=== PATIENT | female | born 1940 | race Caucasian/White ===

== ENCOUNTER 2016-08-18 07:57 | Inpatient (IN) | payer MEDICARE, BC ==
[2016-08-18] MEDS ORDERED: Docusate Sodium 100 MG Cap PO PRN (12:43)
[2016-08-18] MEDS ORDERED: valACYclovir 1,000 MG Tab PO PRN (13:55)
[2016-08-18] MEDS: Acetaminophen 500 MG Tab PO SCH ×2 (15:02→20:39)
--- NOTE | 2016-08-18 18:12 | PCM.HP ---
H&P History of Present Illness - General Date of Service: 08/18/16 Admit Problem/Dx: Admission Diagnosis/Problem Admission Diagnosis/Problem Total replacement of hip Source of Information: Patient, Family History Limitations: Reports: No limitations - History of Present Illness Initial Comments - Free Text/Narative: This is a 75-year-old female patient that had right total hip arthroplasty 4 days ago and [place] by Dr. Salinas. She's doing well and here for swing bed at rehabilitation. She has no concerns today. Her [id number] states that she does have some dementia and Alzheimer's. DENIES ANY PAIN WHEN ASKED AT PRESENT TIME. Pain Score (Numeric/FACES): 0 - Related Data Allergies/Adverse Reactions: Allergies Allergy/AdvReac Type Severity Reaction Status Date / Time No Known Allergies Allergy Verified 08/18/16 12:42 Home Medications: Home Meds Bimatoprost [LUMIGAN 0.01% Ophth Soln] 1 drop EYEBOTH BEDTIME 11/04/14 [History] Lovastatin [Lovastatin] 40 mg PO BEDTIME 11/04/14 [History] Sertraline HCl [Sertraline HCl] 25 mg PO BEDTIME 11/04/14 [History] Acetaminophen [Tylenol Extra Strength] 1,000 mg PO TID 08/18/16 [History] Acetaminophen/Diphenhydramine [Tylenol Pm Ex-Strength Caplet] 2 each PO BEDTIME 08/18/16 [History] Allopurinol [Zyloprim] 150 mg PO BEDTIME 08/18/16 [History] Aspirin [Ecotrin] 325 mg PO BID 08/18/16 [History] Donepezil HCl 10 mg PO BEDTIME 08/18/16 [History] Losartan [Cozaar] 100 mg PO BEDTIME 08/18/16 [History] Memantine HCl [Namenda] 5 mg PO BEDTIME 08/18/16 [History] Timolol Maleate [Timoptic 0.5% Opth Soln] 1 drop EYELF BEDTIME 08/18/16 [History ] amLODIPine [Norvasc] 5 mg PO BEDTIME 08/18/16 [History] traMADol [Ultram] 50 - 100 mg PO Q4H PRN 08/18/16 [History] valACYclovir [Valtrex] 2,000 mg PO BID PRN 08/18/16 [History] Past Medical History HEENT History: Reports: Cataract, Glaucoma, Impaired vision Cardiovascular History: Reports: High cholesterol, Hypertension, SOB on exertion Gastrointestinal History: Reports: GERD, Other (see below) Other Gastrointestinal History: heartburn with Other Genitourinary History: KIDNEY DYSFUNCTION D/T [employer] History: Reports: Musculoskeletal History: Reports: Back pain, chronic Neurological History: Reports: Alzheimers disease Oncologic (Cancer) History: Reports: Other (see below) Other Oncologic History: skin cancer - Infectious Disease History Infectious Disease History: Reports: Chicken pox, Measles, Mumps - Past Surgical History HEENT Surgical History: Reports: Cataract surgery, Oral surgery Cardiovascular Surgical History: Reports: None GI Surgical History: Reports: Appendectomy, Colonoscopy Female Surgical History: Reports: Hysterectomy, Oophorectomy Neurological Surgical History: Reports: None Musculoskeletal Surgical History: Reports: Hip replacement, Other (see below) Other Musculoskeletal Surgeries/Procedures:: back surgery years ago, right hip replacement Social & Family History - Family History Family Medical History: Noncontributory - Tobacco Use Smoking Status *Q: Never Smoker Second Hand Smoke Exposure: No - Caffeine Use Caffeine Use: Reports: None - Recreational Drug Use Recreational Drug Use: No H&P Review of Systems - Review of Systems: Review Of Systems: See Below General: Reports: no symptoms HEENT: Reports: no symptoms Pulmonary: Reports: No Symptoms Cardiovascular: Reports: no symptoms Gastrointestinal: Reports: No symptoms Genitourinary: Reports: no symptoms Musculoskeletal: Reports: joint pain Psychiatric: Reports: no symptoms Neurological: Reports: No Symptoms Hematologic/Lymphatic: Reports: no symptoms Immunologic: Reports: no symptoms Exam - Exam Exam: See Below - Vital Signs Vital Signs: Last Vital Signs Temp 98.0 F 08/18/16 11:45 Pulse 66 08/18/16 11:45 Resp 18 08/18/16 11:45 BP 123/38 L 08/18/16 11:45 Pulse Ox 96 08/18/16 11:45 Weight: 165 lb 8 oz - Exam General: alert, oriented, cooperative HEENT: PERRLA, Hearing intact, Posterior pharynx clear, Pupils equal, Pupils reactive, TMs clear Neck: supple, trachea midline. No: carotid bruit Lungs: Clear to auscultation, Normal respiratory effort. No: Rales, Rhonchi, Rub Cardiovascular: regular rate, regular rhythm, normal S1, normal S2. No: systolic murmur, diastolic murmur Abdomen: normal bowel sounds, soft. No: organomegaly, guarding, rigidity, rebound, tenderness Back Exam: normal inspection Skin: warm, dry, intact Neuro Extensive - Mental Status: alert, oriented x3, normal mood/affect, normal cognition *Q Meaningful Use (ADM) - VTE *Q VTE Criteria *Q: - Stroke *Q Stroke Criteria *Q: - AMI *Q AMI Criteria *Q: - Problem List (1) S/P total hip arthroplasty SNOMED Code(s): 850971867978, 836384282998 ICD Code: Z96.649 - PRESENCE OF UNSPECIFIED ARTIFICIAL HIP JOINT Status: Acute Current Visit: Yes Problem List Initiated/Reviewed/Updated: Yes Orders Last 24hrs: Active Orders 24 hr Category Date Time Status Admission Status [Patient Status] [ADT] Routine ADT 08/18/16 08:22 Active Patient Status [ADT] Routine ADT 08/18/16 12:43 Active Communication Order [RC] ASDIRECTED Care 08/18/16 17:04 Active May Shower [RC] ASDIRECTED Care 08/18/16 12:43 Active Oxygen Therapy [RC] PRN Care 08/18/16 12:43 Active Up With Assistance [RC] ASDIRECTED Care 08/18/16 12:43 Active Vital Signs [RC] PER UNIT ROUTINE Care 08/18/16 12:43 Active OT Evaluation and Treatment [CONS] Routine Cons 08/18/16 12:43 Active PT Evaluation and Treatment [CONS] Routine Cons 08/18/16 12:43 Active Regular Diet [DIET] Diet 08/18/16 Lunch Active Acetaminophen [Tylenol Extra Strength] Med 08/18/16 14:00 Active 1,000 mg PO TID Acetaminophen/Diphenhydramine [Tylenol PM Extra Med 08/18/16 21:00 Active Strength] 2 tab PO BEDTIME Allopurinol [Zyloprim] Med 08/18/16 21:00 Active 150 mg PO BEDTIME Aspirin [Ecotrin] Med 08/18/16 21:00 Active 325 mg PO BID Docusate Sodium [Colace] Med 08/18/16 12:43 Active 100 mg PO BID PRN Donepezil [Aricept] Med 08/18/16 21:00 Active 10 mg PO BEDTIME Latanoprost [Xalatan 0.005% Ophth Soln] Med 08/18/16 21:00 Active 0 ml EYEBOTH BEDTIME Losartan [Cozaar] Med 08/18/16 21:00 Active 100 mg PO BEDTIME Lovastatin [Mevacor] Med 08/18/16 21:00 Active 40 mg PO BEDTIME Memantine [Namenda] Med 08/18/16 21:00 Active 5 mg PO BEDTIME Sertraline [Zoloft] Med 08/18/16 21:00 Active 25 mg PO BEDTIME Timolol Maleate [Timoptic 0.5% Ophth Soln] Med 08/18/16 21:00 Active 0 ml EYELF BEDTIME amLODIPine [Norvasc] Med 08/18/16 21:00 Active 5 mg PO BEDTIME traMADol [Ultram] Med 08/18/16 13:55 Active 50 mg PO Q4H PRN valACYclovir [Valtrex] Med 08/18/16 13:55 Active 2,000 mg PO BID PRN Sequential Compression Device [OM.PC] Per Unit Routine Oth 08/18/16 12:44 Ordered Resuscitation Status Routine Resus Stat 08/18/16 12:43 Ordered Medication Orders Acetaminophen (Tylenol Extra Strength) 1,000 mg PO TID [facility] Last Admin: 08/18/16 15:02 Dose: 1,000 mg Acetaminophen/Diphenhydramine HCl (Tylenol Pm Extra Strength) 2 tab PO BEDTIME [facility] Allopurinol (Zyloprim) 150 mg PO BEDTIME [facility] Amlodipine Besylate (Norvasc) 5 mg PO BEDTIME [facility] Aspirin (Ecotrin) 325 mg PO BID [facility] Docusate Sodium (Colace) 100 mg PO BID PRN PRN Reason: Constipation Donepezil HCl (Aricept) 10 mg PO BEDTIME [facility] Latanoprost (Xalatan 0.005% Ophth Soln) 0 ml EYEBOTH BEDTIME [facility] Losartan Potassium (Cozaar) 100 mg PO BEDTIME [facility] Lovastatin (Mevacor) 40 mg PO BEDTIME [facility] Memantine (Namenda) 5 mg PO BEDTIME [facility] Sertraline HCl (Zoloft) 25 mg PO BEDTIME [facility] Timolol Maleate (Timoptic 0.5% Ophth Soln) 0 ml EYELF BEDTIME [facility] Tramadol HCl (Ultram) 50 mg PO Q4H PRN PRN Reason: MODERATE-SEVERE PAIN Valacyclovir HCl (Valtrex) 2,000 mg PO BID PRN PRN Reason: COLD SORES Assessment/Plan Comment:: 1. Admit to suite at per PT/OT and rehabilitation. 2. Discussed living rao and she wants to be a full code. 3. Continue current medications. 4. Regular diet.
[2016-08-18] MEDS: Donepezil 10 MG Tab PO SCH (20:34)
[2016-08-18] MEDS: Losartan 100 MG Tab PO SCH (20:34)
[2016-08-18] MEDS: Aspirin 325 MG Tab.EC PO SCH (20:36)
[2016-08-18] MEDS: Sertraline 25 MG Tab PO SCH (20:37)
[2016-08-18] MEDS: Memantine 10 MG Tab PO SCH (20:37)
[2016-08-18] MEDS: Timolol Maleate 0.5% Ophth Soln 5 ML Bottle EYELF SCH (20:38)
[2016-08-18] MEDS: amLODIPine 5 MG Tab PO SCH (20:38)
[2016-08-18] MEDS: Acetaminophen/Diphenhydramine 500-25 MG Tab PO SCH (20:39)
[2016-08-18] MEDS: Latanoprost 0.005% Ophth Soln 2.5 ML Bottle EYEBOTH SCH (20:40)
[2016-08-18] MEDS: Allopurinol 300 MG Tab PO SCH (20:40)
[2016-08-19] MEDS: traMADol 50 MG Tab PO PRN ×2 (04:59→17:11)
[2016-08-19] MEDS: Aspirin 325 MG Tab.EC PO SCH ×2 (08:44→20:02)
[2016-08-19] MEDS ORDERED: Acetaminophen 500 MG Tab PO SCH (09:00)
[2016-08-19] MEDS: Acetaminophen 500 MG Tab PO SCH (13:45)
[2016-08-19] MEDS: Losartan 100 MG Tab PO SCH (20:00)
[2016-08-19] MEDS: Donepezil 10 MG Tab PO SCH (20:00)
[2016-08-19] MEDS: Memantine 10 MG Tab PO SCH (20:02)
[2016-08-19] MEDS: amLODIPine 5 MG Tab PO SCH (20:03)
[2016-08-19] MEDS: Timolol Maleate 0.5% Ophth Soln 5 ML Bottle EYELF SCH (20:03)
[2016-08-19] MEDS: Latanoprost 0.005% Ophth Soln 2.5 ML Bottle EYEBOTH SCH (20:04)
[2016-08-19] MEDS: Allopurinol 300 MG Tab PO SCH (20:04)
[2016-08-19] MEDS: Sertraline 25 MG Tab PO SCH (20:04)
[2016-08-19] MEDS: Acetaminophen/Diphenhydramine 500-25 MG Tab PO SCH (20:06)
[2016-08-20] MEDS: Acetaminophen 500 MG Tab PO SCH ×2 (08:31→14:28)
[2016-08-20] MEDS: Aspirin 325 MG Tab.EC PO SCH ×2 (08:31→20:19)
[2016-08-20] MEDS: Donepezil 10 MG Tab PO SCH (20:16)
[2016-08-20] MEDS: Losartan 100 MG Tab PO SCH (20:16)
[2016-08-20] MEDS: Timolol Maleate 0.5% Ophth Soln 5 ML Bottle EYELF SCH (20:20)
[2016-08-20] MEDS: amLODIPine 5 MG Tab PO SCH (20:20)
[2016-08-20] MEDS: Memantine 10 MG Tab PO SCH (20:20)
[2016-08-20] MEDS: Sertraline 25 MG Tab PO SCH (20:21)
[2016-08-20] MEDS: Allopurinol 300 MG Tab PO SCH (20:21)
[2016-08-20] MEDS: Acetaminophen/Diphenhydramine 500-25 MG Tab PO SCH (20:21)
[2016-08-20] MEDS: Latanoprost 0.005% Ophth Soln 2.5 ML Bottle EYEBOTH SCH (20:21)
[2016-08-21] MEDS: Acetaminophen 500 MG Tab PO SCH ×2 (08:02→14:04)
[2016-08-21] MEDS: Aspirin 325 MG Tab.EC PO SCH ×2 (08:02→20:57)
[2016-08-21] MEDS: Donepezil 10 MG Tab PO SCH (20:56)
[2016-08-21] MEDS: Losartan 100 MG Tab PO SCH (20:56)
[2016-08-21] MEDS: Memantine 10 MG Tab PO SCH (20:57)
[2016-08-21] MEDS: Latanoprost 0.005% Ophth Soln 2.5 ML Bottle EYEBOTH SCH (20:58)
[2016-08-21] MEDS: Acetaminophen/Diphenhydramine 500-25 MG Tab PO SCH (20:58)
[2016-08-21] MEDS: Allopurinol 300 MG Tab PO SCH (20:58)
[2016-08-21] MEDS: Timolol Maleate 0.5% Ophth Soln 5 ML Bottle EYELF SCH (20:58)
[2016-08-21] MEDS: amLODIPine 5 MG Tab PO SCH (20:58)
[2016-08-21] MEDS: Sertraline 25 MG Tab PO SCH (20:58)
[2016-08-22] MEDS: Acetaminophen 500 MG Tab PO SCH ×3 (08:11→13:29)
[2016-08-22] MEDS: Aspirin 325 MG Tab.EC PO SCH ×2 (08:11→21:07)
[2016-08-22] MEDS: Timolol Maleate 0.5% Ophth Soln 5 ML Bottle EYELF SCH (20:51)
[2016-08-22] MEDS: Latanoprost 0.005% Ophth Soln 2.5 ML Bottle EYEBOTH SCH (20:57)
[2016-08-22] MEDS: Acetaminophen/Diphenhydramine 500-25 MG Tab PO SCH (21:06)
[2016-08-22] MEDS: Donepezil 10 MG Tab PO SCH (21:06)
[2016-08-22] MEDS: amLODIPine 5 MG Tab PO SCH (21:07)
[2016-08-22] MEDS: Allopurinol 300 MG Tab PO SCH (21:11)
[2016-08-22] MEDS: Memantine 10 MG Tab PO SCH (21:12)
[2016-08-22] MEDS: Sertraline 25 MG Tab PO SCH (21:31)
[2016-08-22] MEDS: Losartan 100 MG Tab PO SCH (21:31)
[2016-08-23] MEDS: Aspirin 325 MG Tab.EC PO SCH ×2 (08:19→20:23)
[2016-08-23] MEDS: Acetaminophen 500 MG Tab PO SCH ×2 (08:19→14:32)
[2016-08-23] MEDS: Latanoprost 0.005% Ophth Soln 2.5 ML Bottle EYEBOTH SCH (20:21)
[2016-08-23] MEDS: Losartan 100 MG Tab PO SCH (20:22)
[2016-08-23] MEDS: Donepezil 10 MG Tab PO SCH (20:22)
[2016-08-23] MEDS: Memantine 10 MG Tab PO SCH (20:24)
[2016-08-23] MEDS: amLODIPine 5 MG Tab PO SCH (20:24)
[2016-08-23] MEDS: Timolol Maleate 0.5% Ophth Soln 5 ML Bottle EYELF SCH (20:25)
[2016-08-23] MEDS: Sertraline 25 MG Tab PO SCH (20:25)
[2016-08-23] MEDS: Acetaminophen/Diphenhydramine 500-25 MG Tab PO SCH (20:25)
[2016-08-23] MEDS: Allopurinol 300 MG Tab PO SCH (20:26)
[2016-08-24] MEDS: Acetaminophen 500 MG Tab PO SCH ×2 (08:44→15:21)
[2016-08-24] MEDS: Aspirin 325 MG Tab.EC PO SCH ×2 (08:44→21:21)
[2016-08-24] MEDS: traMADol 50 MG Tab PO PRN (19:42)
[2016-08-24] MEDS: Losartan 100 MG Tab PO SCH (21:20)
[2016-08-24] MEDS: Donepezil 10 MG Tab PO SCH (21:20)
[2016-08-24] MEDS: Memantine 10 MG Tab PO SCH (21:21)
[2016-08-24] MEDS: Timolol Maleate 0.5% Ophth Soln 5 ML Bottle EYELF SCH (21:22)
[2016-08-24] MEDS: Acetaminophen/Diphenhydramine 500-25 MG Tab PO SCH (21:22)
[2016-08-24] MEDS: amLODIPine 5 MG Tab PO SCH (21:22)
[2016-08-24] MEDS: Latanoprost 0.005% Ophth Soln 2.5 ML Bottle EYEBOTH SCH (21:25)
[2016-08-25] MEDS: Aspirin 325 MG Tab.EC PO SCH (08:00)
[2016-08-25] MEDS: Acetaminophen 500 MG Tab PO SCH ×2 (08:00→13:02)
[2016-08-25 08:58] VITALS: BP 127/58
--- NOTE | 2016-08-25 13:24 | PCM.DCSUM1 ---
Discharge Summary - Discharge Data Discharge Date: 08/25/16 Discharge Disposition: Home, W Home Health Agency Condition: Good - Discharge Diagnosis/Problem(s) (1) S/P total hip arthroplasty SNOMED Code(s): 421602057735, [id number] ICD Code: Z96.649 - PRESENCE OF UNSPECIFIED ARTIFICIAL HIP JOINT Status: Acute Current Visit: Yes Qualifiers: Laterality: right Qualified Code(s): Z96.641 - Presence of right artificial hip joint - Patient Summary/Data Consults: Consultations 08/18/16 12:43 OT Evaluation and Treatment [CONS] Routine Please Evaluate and Treat. OT Reason for Consult: Strengthening This query below is only for informational purposes and is not editable. Admission Diagnosis/Problem: Total replacement of hip PT Evaluation and Treatment [CONS] Routine Please Evaluate and Treat. PT Reason for Consult: Ambulation This query below is only for informational purposes and is not editable. Admission Diagnosis/Problem: Total replacement of hip Hospital Course: Mrs. Ramos is a pleasant 75 year female admitted to our swingbed for reconditioning, PT/OT, med management and wound cares after Right Total Hip Arthoplasty in [place]. she has done quite well since being here without incident. surgical site has remained healthy, she continues with high dose ASA per ortho, teds for edema as expected and will be discharged with continued therapies and outpt follow up with orthopedics as already scheduled. no medication changes otherwise and post op labs good. using walker and full weight bearing. she tells me today she is ready. her daughter is present and agrees. pt has no ayers, f/c, nausea, back or abdominal pain. doses get some thigh cramping with ambulation this last time. no calf pain. wearing teds. no dysuria or hematuria. tolerating diet adn therapies. good output. no episodes with underlying dementia while in house. she denies concerns for going home. exam today. vitals within normal ranges. labs reviewed. alert, ox3, nad, sitting with wheel chair, unlabored breathing head and neck normal OP clear and moist. lungs clear heart rrr/no mur abd soft and nt. good bowel sounds. back non tender. right hip op sight clean, dry, healthy and no dehisence or induration. no tenderness to palp. no quad spasming. normal sensation and perfusion. ext: right calf/lower leg increased in circumferense today with compared to the left. no tenderness. no warmth. negative holmans. normal 2+DP and PT pulses bilat. left leg with edema mild and non tender. will rule out dvt with duplex prior to discharge. if positive, will adjust discharge planning. - Patient Instructions Diet: Heart Healthy Diet, Low Sodium Activity: Full Weight Bearing Driving: Do Not Drive Showering/Bathing: May Shower Wound/Incision Care: Keep Operative Site/Wound Site Clean and Dry Notify Provider of: Fever, Increased Pain, Swelling and Redness, Nausea and/or Vomiting - Discharge Plan Home Medications: Home Meds Bimatoprost [LUMIGAN 0.01% Ophth Soln] 1 drop EYEBOTH BEDTIME 11/04/14 [History] Lovastatin 40 mg PO BEDTIME 11/04/14 [History] Sertraline HCl 25 mg PO BEDTIME 11/04/14 [History] Acetaminophen [Tylenol Extra Strength] 1,000 mg PO TID 08/18/16 [History] Acetaminophen/Diphenhydramine [Tylenol Pm Ex-Strength Caplet] 2 each PO BEDTIME 08/18/16 [History] Allopurinol [Zyloprim] 150 mg PO BEDTIME 08/18/16 [History] Donepezil HCl 10 mg PO BEDTIME 08/18/16 [History] Losartan [Cozaar] 100 mg PO BEDTIME 08/18/16 [History] Memantine HCl [Namenda] 5 mg PO BEDTIME 08/18/16 [History] Timolol Maleate [Timoptic 0.5% Ophth Soln] 1 drop EYELF BEDTIME 08/18/16 [ History] amLODIPine [Norvasc] 5 mg PO BEDTIME 08/18/16 [History] traMADol [Ultram] 50 - 100 mg PO Q4H PRN 08/18/16 [History] valACYclovir [Valtrex] 2,000 mg PO BID PRN 08/18/16 [History] Aspirin [Ecotrin] 325 mg PO BID 20 Days 08/25/16 [Rx] Patient Handouts: Total Hip Replacement, [id number], Fall Prevention in Hospitals, Adult, Venous Thromboembolism Prevention Referrals: Solo Gtz MD [Physician] - (or pcp of choice for hosp follow up after ortho appt. ) - Discharge Summary/Plan Comment DC Time >30 min.: Yes - Patient Data Vitals - Most Recent: Last Vital Signs Temp 97.7 F 08/25/16 08:58 Pulse 66 08/25/16 08:58 Resp 18 08/25/16 08:58 BP 127/58 L 08/25/16 08:58 Pulse Ox 98 08/25/16 08:58 Weight - Most Recent: 75.07 kg Med Orders - Current: Current Medications Acetaminophen (Tylenol Extra Strength) 1,000 mg PO BID@0900,1400 [facility] Last Admin: 08/25/16 13:02 Dose: 1,000 mg Acetaminophen/Diphenhydramine HCl (Tylenol Pm Extra Strength) 2 tab PO BEDTIME [facility] Last Admin: 08/24/16 21:22 Dose: 2 tab Allopurinol (Zyloprim) 150 mg PO BEDTIME [facility] Last Admin: 08/23/16 20:26 Dose: 150 mg Amlodipine Besylate (Norvasc) 5 mg PO BEDTIME [facility] Last Admin: 08/24/16 21:22 Dose: 5 mg Aspirin (Ecotrin) 325 mg PO BID [facility] Last Admin: 08/25/16 08:00 Dose: 325 mg Docusate Sodium (Colace) 100 mg PO BID PRN PRN Reason: Constipation Donepezil HCl (Aricept) 10 mg PO BEDTIME [facility] Last Admin: 08/24/16 21:20 Dose: 10 mg Latanoprost (Xalatan 0.005% Ophth Soln) 0 ml EYEBOTH BEDTIME [facility] Last Admin: 08/24/16 21:25 Dose: 1 drop Losartan Potassium (Cozaar) 100 mg PO BEDTIME [facility] Last Admin: 08/24/16 21:20 Dose: 100 mg Lovastatin (Mevacor) 40 mg PO BEDTIME [facility] Last Admin: 08/24/16 21:21 Dose: 40 mg Memantine (Namenda) 5 mg PO BEDTIME [facility] Last Admin: 08/24/16 21:21 Dose: 5 mg Sertraline HCl (Zoloft) 25 mg PO BEDTIME [facility] Last Admin: 08/23/16 20:25 Dose: 25 mg Timolol Maleate (Timoptic 0.5% Ophth Soln) 0 ml EYELF BEDTIME [facility] Last Admin: 08/24/16 21:22 Dose: 1 drop Tramadol HCl (Ultram) 50 mg PO Q4H PRN PRN Reason: MODERATE-SEVERE PAIN Last Admin: 08/24/16 19:42 Dose: 50 mg Valacyclovir HCl (Valtrex) 2,000 mg PO BID PRN PRN Reason: COLD SORES Discontinued Medications Acetaminophen (Tylenol Extra Strength) 1,000 mg PO TID [facility] Last Admin: 08/18/16 20:39 Dose: 1,000 mg Acetaminophen (Tylenol Extra Strength) 1,000 mg PO TID@0900,1300,1700 [facility] Last Admin: 08/19/16 08:45 Dose: 1,000 mg *Q Meaningful Use (DIS) - VTE *Q VTE Criteria *Q: - Stroke *Q Stroke Criteria *Q: - AMI *Q AMI Criteria *Q:
--- NOTE | 2016-08-25 14:11 | US ---
INDICATION: Asymmetrical pain and swelling post op right OLIVIER. Question DVT. DUPLEX ULTRASOUND, RIGHT LOWER EXTREMITY VEINS: Utilizing 2-D real time, duplex Doppler spectral analysis, and color flow imaging, examination of the right lower extremity veins revealed no evidence of deep venous thrombosis or obstruction. Compression views showed no abnormal lack of compression to suggest thrombosis. No evidence of incompetence of the valves was identified. Peroneal veins were not visualized. Interstitial edema is noted in the calf. IMPRESSION: 1. Duplex ultrasound, right lower extremity veins, shows no evidence of deep venous thrombosis. 2. No evidence of valvular incompetence. Report was called to Dr. Booker at 1358 hours, 08/25/2016. [facility]
== END 2016-08-25 15:15 | disposition home health service (06) | DRG 561 ==
LOC: FB.MS 11:39
PROVIDERS: ADMIT Family Medicine; ATTEND Family Medicine
DX: Z47.1 Aftercare following joint replacement surgery (principal); Z96.641 Presence of right artificial hip joint; K21.9 Gastro-esophageal reflux disease without esophagitis; E78.5 Hyperlipidemia, unspecified; H40.9 Unspecified glaucoma; G30.9 Alzheimer's disease, unspecified; F02.80 Dementia in other diseases classified elsewhere, unspecified severity, without behavioral disturbance, psychotic disturbance, mood disturbance, and anxiety
CPT/HCPCS: 36415; 80048; 85027; 93971-RT; 97110-GP; 97116-GP; 97162-GP; 97166-GO; 97530-GO; 97530-GO-KX; 97530-GP; 97535-GO; A9270-GY

== ENCOUNTER 2017-08-10 08:17 | Inpatient (IN) | payer MEDICARE, BC ==
--- NOTE | 2017-08-10 08:56 | EDM.PDOC ---
ED HPI GENERAL MEDICAL PROBLEM - General Stated Complaint: WEAKNESS Time Seen by Provider: 08/10/17 08:17 Source of Information: Reports: Patient, Family History Limitations: Reports: Respiratory Distress - History of Present Illness INITIAL COMMENTS - FREE TEXT/NARRATIVE: 76 y.o.w f with a h/O early Alzheimers, came with her daughters to the ed because she could not breath. Pt herself is not able to give a HPI. No N/V/D. Pt has a h/o of "kidney issues". Denied trauma, denies Dysuria. no C/P, no Dizziness of lightheadedness. No other acute medical issues. BP 126/64 Pulse 56 pulse ox 97% RR 18 Temp 36.9 Onset Date: 08/10/17 Onset Time: 07:00 Duration: Hour(s):, Constant, Intermittent Location: Reports: Generalized Quality: Reports: Ache, Burning Severity: Mild Improves with: Reports: Rest Worsens with: Reports: Movement Context: Reports: Other Associated Symptoms: Reports: No Other Symptoms DENIES ANY PAIN WHEN ASKED AT PRESENT TIME. Pain Score (Numeric/FACES): 0 - Related Data Allergies Allergy/AdvReac Type Severity Reaction Status Date / Time No Known Allergies Allergy Verified 08/10/17 08:31 Home Meds: Home Meds Bimatoprost [LUMIGAN 0.01% Ophth Soln] 1 drop EYEBOTH BEDTIME 11/04/14 [History] Lovastatin 40 mg PO BEDTIME 11/04/14 [History] Sertraline HCl 25 mg PO BEDTIME 11/04/14 [History] Acetaminophen [Tylenol Extra Strength] 1,000 mg PO DAILY 08/18/16 [History] Acetaminophen/Diphenhydramine [Tylenol Pm Ex-Strength Caplet] 2 each PO BEDTIME 08/18/16 [History] Allopurinol [Zyloprim] 150 mg PO BEDTIME 08/18/16 [History] Donepezil HCl 10 mg PO BEDTIME 08/18/16 [History] Losartan [Cozaar] 100 mg PO BEDTIME 08/18/16 [History] Memantine HCl [Namenda] 10 mg PO BEDTIME 08/18/16 [History] Timolol Maleate [Timoptic 0.5% Ophth Soln] 1 drop EYEBOTH DAILY 08/18/16 [ History] amLODIPine [Norvasc] 5 mg PO BEDTIME 08/18/16 [History] Aspirin [Ecotrin] 325 mg PO DAILY 08/10/17 [History] Cholecalciferol (Vitamin D3) [Vitamin D3] 2,000 unit PO BEDTIME 08/10/17 [ History] Past Medical History HEENT History: Reports: Cataract, Glaucoma, Impaired Vision Cardiovascular History: Reports: High Cholesterol, Hypertension, SOB on Exertion Gastrointestinal History: Reports: GERD, Other (See Below) Other Gastrointestinal History: heartburn with Other Genitourinary History: KIDNEY DYSFUNCTION D/T TOXIEMIA 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: Musculoskeletal History: Reports: Back Pain, Chronic Neurological History: Reports: Alzheimers Disease Oncologic (Cancer) History: Reports: Other (See Below) Other Oncologic History: skin cancer - Infectious Disease History Infectious Disease History: Reports: Chicken Pox, Measles, Mumps - Past Surgical History HEENT Surgical History: Reports: Cataract Surgery, Oral Surgery Musculoskeletal Surgical History: Reports: Hip Replacement, Other (See Below) Social & Family History - Family History Family Medical History: Noncontributory - Tobacco Use Smoking Status *Q: Never Smoker Second Hand Smoke Exposure: No - Caffeine Use Caffeine Use: Reports: None - Recreational Drug Use Recreational Drug Use: No ED ROS GENERAL - Review of Systems Review Of Systems: Unable To Obtain (early alzheimers) ED EXAM, GENERAL - Physical Exam Exam: See Below Exam Limited By: Altered Mental Status General Appearance: Alert, WD/WN, Mild Distress Eye Exam: Bilateral Eye: EOMI, Normal Inspection Ears: Normal External Exam, Normal Canal Ear Exam: Bilateral Ear: Auricle Normal Nose: Normal Inspection Throat/Mouth: Normal Inspection Head: Atraumatic, Normocephalic Neck: Normal Inspection, Supple, Non-Tender, Full Range of Motion Respiratory/Chest: No Respiratory Distress, Lungs Clear, Normal Breath Sounds, Chest Non-Tender Cardiovascular: Normal Peripheral Pulses, Regular Rate, Rhythm, No Edema, No Gallop, No Rub Peripheral Pulses: 1+: Brachial (L) GI/Abdominal: Normal Bowel Sounds, Soft, Non-Tender (Female) Exam: Deferred Rectal (Female) Exam: Deferred Back Exam: Normal Inspection, Full Range of Motion Extremities: Normal Inspection, Normal Range of Motion, Non-Tender, No Pedal Edema, Normal Capillary Refill Neurological: Alert, CN II-XII Intact, No Motor/Sensory Deficits, Confused (occ) Psychiatric: Normal Affect, Normal Mood Skin Exam: Warm, Dry, Intact, Normal Color, No Rash Lymphatic: No Adenopathy EKG INTERPRETATION EKG Date: 08/10/17 Time: 08:40 Rhythm: NSR Rate (Beats/Min): 46 Noble: Normal P-Wave: Present QRS: Normal ST-T: Normal QT: Normal Comparison: NA - No Prior EKG Course - Vital Signs Text/Narrative:: 76 y.o.w f with a h/O early Alzheimers, came with her daughters to the ed because she could not breath. Pt herself is not able to give a HPI. No N/V/D. Pt has a h/o of "kidney issues". Denied trauma, denies Dysuria. no C/P, no Dizziness of lightheadedness. No other acute medical issues. BP 126/64 Pulse 56 pulse ox 97% RR 18 Temp 36.9 PE: WNWD W F with H/O early Alzheimers and SOB Imaging: CXR NAD U/S castillo lower extr.: Pending Labs: UA pos for UTI Cr. 2.1 BUN 27 Na 137 K 4.6 WBC 5.2 HGB 10.0 HCT 32.1 D Dimer 785 Impression: Early Alzheime's disease, elevated D Dimer, CRI, Dehydration, Bradycardia (not symptomatic), UTI Tx: NS. Abx (started by Dr. Jacobson) 9.37 am Consultation: Dr. Jacobson: Accepted the pt for admission Plan: Admit for obs Last Recorded V/S: Last Vital Signs Temp 37.1 C 08/11/17 16:00 Pulse 52 L 08/11/17 16:00 Resp 18 08/11/17 16:00 BP 134/65 08/11/17 16:00 Pulse Ox 98 08/11/17 16:00 - Orders/Labs/Meds Orders: Active Orders 24 hr Category Date Time Status INR,PT,PROTHROMBIN TIME [COAG] DAILY Lab 08/12/17 16:54 Ordered INR,PT,PROTHROMBIN TIME [COAG] DAILY Lab 08/13/17 16:54 Ordered INR,PT,PROTHROMBIN TIME [COAG] DAILY Lab 08/14/17 16:54 Ordered INR,PT,PROTHROMBIN TIME [COAG] DAILY Lab 08/15/17 16:54 Ordered INR,PT,PROTHROMBIN TIME [COAG] DAILY Lab 08/16/17 16:54 Ordered INR,PT,PROTHROMBIN TIME [COAG] DAILY Lab 08/17/17 16:54 Ordered INR,PT,PROTHROMBIN TIME [COAG] DAILY Lab 08/18/17 16:54 Ordered Acetaminophen [Tylenol Extra Strength] Med 08/11/17 09:00 Active 1,000 mg PO DAILY Acetaminophen/Diphenhydramine [Tylenol PM Extra Med 08/10/17 21:00 Active Strength] 2 tab PO BEDTIME Aspirin [Ecotrin] Med 08/11/17 09:00 Hold 325 mg PO DAILY Cholecalciferol (Vitamin D3) [Vitamin D3] Med 08/10/17 21:00 Active 2,000 units PO BEDTIME Donepezil [Aricept] Med 08/10/17 21:00 Active 10 mg PO BEDTIME Sertraline [Zoloft] Med 08/10/17 21:00 Active 25 mg PO BEDTIME amLODIPine [Norvasc] Med 08/10/17 21:00 Active 5 mg PO BEDTIME EKG 12 Lead [EK] AM Ther 08/11/17 05:11 Ordered Medication Orders Acetaminophen (Tylenol Extra Strength) 1,000 mg PO DAILY [facility] Last Admin: 08/11/17 08:47 Dose: Acetaminophen/Diphenhydramine HCl (Tylenol Pm Extra Strength) 2 tab PO BEDTIME [facility] Last Admin: 08/10/17 20:04 Dose: 2 tab Allopurinol (Zyloprim) 150 mg PO BEDTIME [facility] Amlodipine Besylate (Norvasc) 5 mg PO BEDTIME [facility] Last Admin: 08/10/17 20:03 Dose: 5 mg Amoxicillin (Amoxil) 500 mg PO Q12H [facility] Last Admin: 08/11/17 11:16 Dose: 500 mg Aspirin (Ecotrin) 325 mg PO DAILY [facility] Cholecalciferol (Vitamin D3) 2,000 units PO BEDTIME [facility] Last Admin: 08/10/17 20:04 Dose: 2,000 units Docusate Sodium (Colace) 100 mg PO BID PRN PRN Reason: Constipation Donepezil HCl (Aricept) 10 mg PO BEDTIME [facility] Last Admin: 08/10/17 20:03 Dose: 10 mg Enoxaparin Sodium (Lovenox) 80 mg SUBCUT Q24H [facility] Last Admin: 08/11/17 16:36 Dose: 80 mg Admin: 08/10/17 17:23 Dose: 80 mg Latanoprost (Xalatan 0.005% Ophth Soln) 0 ml EYEBOTH BEDTIME [facility] Memantine (Namenda) 10 mg PO BEDTIME [facility] Sertraline HCl (Zoloft) 25 mg PO BEDTIME [facility] Last Admin: 08/10/17 20:04 Dose: 25 mg Simvastatin (Zocor) 20 mg PO BEDTIME [facility] Timolol Maleate (Timoptic 0.5% Ophth Soln) 0 ml EYEBOTH DAILY [facility] Warfarin Sodium (Coumadin Sliding Scale) 0 each PO ASDIRECTED [facility] Labs: Laboratory Tests 08/10/17 08/10/17 08/10/17 Range/Units 08:45 08:45 08:45 WBC 5.2 (4.5-12.0) X10-3/uL RBC 3.82 (3.23-5.20) x10(6)uL Hgb 10.0 L (11.5-15.5) g/dL Hct 32.1 (30.0-51.3) % MCV 84.1 (80-96) fL MCH 26.2 L (27.7-33.6) pg MCHC 31.2 L (32.2-35.4) g/dL RDW 14.6 (11.5-15.5) % Plt Count 248 (125-369) X10(3)uL MPV 7.8 (7.4-10.4) fL Neut % (Auto) 68.2 (46-82) % Lymph % (Auto) 19.8 (13-37) % Nelson % (Auto) 8.0 (4-12) % Eos % (Auto) 3 (1.0-5.0) % Baso % (Auto) 1 (0-2) % Neut # (Auto) 3.6 (1.6-8.3) # Lymph # (Auto) 1.0 (0.6-5.0) # Nelson # (Auto) 0.4 (0.0-1.3) # Eos # (Auto) 0.2 (0.0-0.8) # Baso # (Auto) 0.0 (0.0-0.2) # PT 10.5 (8.7-11.1) INR 1.04 (0.89-1.13) D-Dimer, Quantitative 789 H (100-400) ng/mL Sodium (135-145) mmol/L Potassium (3.5-5.3) mmol/L Chloride (100-110) mmol/L Carbon Dioxide (21-32) mmol/L BUN (7-18) mg/dL Creatinine (0.55-1.02) mg/dL Est Cr Clr Drug Dosing Estimated GFR (MDRD) (>60) BUN/Creatinine Ratio (9-20) Glucose (80-116) mg/dL Calcium (8.6-10.2) mg/dL Total Bilirubin (0.1-1.3) mg/dL AST (5-25) IU/L ALT (12-36) U/L Alkaline Phosphatase (56-112) IU/L Troponin I (<0.017-0.056) ng/mL NT-Pro-B Natriuret Pep (<=450) pg/mL Total Protein (6.0-8.0) g/dL Albumin (3.2-4.6) g/dL Globulin g/dL Albumin/Globulin Ratio Urine Color (YELLOW) Urine Appearance (CLEAR) Urine pH (5.0-6.5) Ur Specific [place] (1.010-1.025) Urine Protein (NEGATIVE) mg/dL Urine Glucose (UA) (NEGATIVE) mg/dL Urine Ketones (NEGATIVE) mg/dL Urine Occult Blood (NEGATIVE) Urine Nitrite (NEGATIVE) Urine Bilirubin (NEGATIVE) Urine Urobilinogen (NEGATIVE) mg/dL Ur Leukocyte Esterase (NEGATIVE) Urine RBC (0) Urine WBC (0) Ur Squamous Epith Cells (NS,R,O) Urine Bacteria (NS) 08/10/17 08/10/17 08/10/17 Range/Units 08:45 08:45 08:45 WBC (4.5-12.0) X10-3/uL RBC (3.23-5.20) x10(6)uL Hgb (11.5-15.5) g/dL Hct (30.0-51.3) % MCV (80-96) fL MCH (27.7-33.6) pg MCHC (32.2-35.4) g/dL RDW (11.5-15.5) % Plt Count (125-369) X10(3)uL MPV (7.4-10.4) fL Neut % (Auto) (46-82) % Lymph % (Auto) (13-37) % Nelson % (Auto) (4-12) % Eos % (Auto) (1.0-5.0) % Baso % (Auto) (0-2) % Neut # (Auto) (1.6-8.3) # Lymph # (Auto) (0.6-5.0) # Nelson # (Auto) (0.0-1.3) # Eos # (Auto) (0.0-0.8) # Baso # (Auto) (0.0-0.2) # PT (8.7-11.1) INR (0.89-1.13) D-Dimer, Quantitative (100-400) ng/mL Sodium 137 (135-145) mmol/L Potassium 4.6 (3.5-5.3) mmol/L Chloride 102 (100-110) mmol/L Carbon Dioxide 21 (21-32) mmol/L BUN 27 H (7-18) mg/dL Creatinine 2.1 H* (0.55-1.02) mg/dL Est Cr Clr Drug Dosing TNP Estimated GFR (MDRD) 23 L (>60) BUN/Creatinine Ratio 12.9 (9-20) Glucose 193 H (80-116) mg/dL Calcium 9.3 (8.6-10.2) mg/dL Total Bilirubin (0.1-1.3) mg/dL AST (5-25) IU/L ALT (12-36) U/L Alkaline Phosphatase (56-112) IU/L Troponin I < 0.017 L (<0.017-0.056) ng/mL NT-Pro-B Natriuret Pep 352 (<=450) pg/mL Total Protein (6.0-8.0) g/dL Albumin (3.2-4.6) g/dL Globulin g/dL Albumin/Globulin Ratio Urine Color (YELLOW) Urine Appearance (CLEAR) Urine pH (5.0-6.5) Ur Specific [place] (1.010-1.025) Urine Protein (NEGATIVE) mg/dL Urine Glucose (UA) (NEGATIVE) mg/dL Urine Ketones (NEGATIVE) mg/dL Urine Occult Blood (NEGATIVE) Urine Nitrite (NEGATIVE) Urine Bilirubin (NEGATIVE) Urine Urobilinogen (NEGATIVE) mg/dL Ur Leukocyte Esterase (NEGATIVE) Urine RBC (0) Urine WBC (0) Ur Squamous Epith Cells (NS,R,O) Urine Bacteria (NS) 08/10/17 08/11/17 08/11/17 Range/Units 09:30 06:06 06:06 WBC 6.2 (4.5-12.0) X10-3/uL RBC 3.56 (3.23-5.20) x10(6)uL Hgb 9.4 L (11.5-15.5) g/dL Hct 29.9 L (30.0-51.3) % MCV 84.0 (80-96) fL MCH 26.4 L (27.7-33.6) pg MCHC 31.5 L (32.2-35.4) g/dL RDW 14.5 (11.5-15.5) % Plt Count 221 (125-369) X10(3)uL MPV 8.1 (7.4-10.4) fL Neut % (Auto) 48.4 (46-82) % Lymph % (Auto) 36.0 (13-37) % Nelson % (Auto) 10.6 (4-12) % Eos % (Auto) 4 (1.0-5.0) % Baso % (Auto) 1 (0-2) % Neut # (Auto) 3.0 (1.6-8.3) # Lymph # (Auto) 2.2 (0.6-5.0) # Nelson # (Auto) 0.7 (0.0-1.3) # Eos # (Auto) 0.3 (0.0-0.8) # Baso # (Auto) 0.0 (0.0-0.2) # PT (8.7-11.1) INR (0.89-1.13) D-Dimer, Quantitative (100-400) ng/mL Sodium 141 (135-145) mmol/L Potassium 4.6 (3.5-5.3) mmol/L Chloride 106 (100-110) mmol/L Carbon Dioxide 26 (21-32) mmol/L BUN 35 H (7-18) mg/dL Creatinine 1.9 H (0.55-1.02) mg/dL Est Cr Clr Drug Dosing 22.67 Estimated GFR (MDRD) 26 L (>60) BUN/Creatinine Ratio 18.4 (9-20) Glucose 96 D (80-116) mg/dL Calcium 8.8 (8.6-10.2) mg/dL Total Bilirubin 0.4 (0.1-1.3) mg/dL AST 16 (5-25) IU/L ALT 15 (12-36) U/L Alkaline Phosphatase 77 (56-112) IU/L Troponin I (<0.017-0.056) ng/mL NT-Pro-B Natriuret Pep (<=450) pg/mL Total Protein 6.3 (6.0-8.0) g/dL Albumin 3.3 (3.2-4.6) g/dL Globulin 3.0 g/dL Albumin/Globulin Ratio 1.1 Urine Color Yellow (YELLOW) Urine Appearance Slightly cloudy (CLEAR) Urine pH 6.0 (5.0-6.5) Ur Specific [place] 1.015 (1.010-1.025) Urine Protein 30 H (NEGATIVE) mg/dL Urine Glucose (UA) Normal (NEGATIVE) mg/dL Urine Ketones 15 H (NEGATIVE) mg/dL Urine Occult Blood Moderate H (NEGATIVE) Urine Nitrite Negative (NEGATIVE) Urine Bilirubin Moderate H (NEGATIVE) Urine Urobilinogen 1 H (NEGATIVE) mg/dL Ur Leukocyte Esterase Large H (NEGATIVE) Urine RBC 0-5 (0) Urine WBC 20-30 H (0) Ur Squamous Epith Cells Few H (NS,R,O) Urine Bacteria Many H (NS) 08/11/17 08/11/17 Range/Units 06:06 06:06 WBC (4.5-12.0) X10-3/uL RBC (3.23-5.20) x10(6)uL Hgb (11.5-15.5) g/dL Hct (30.0-51.3) % MCV (80-96) fL MCH (27.7-33.6) pg MCHC (32.2-35.4) g/dL RDW (11.5-15.5) % Plt Count (125-369) X10(3)uL MPV (7.4-10.4) fL Neut % (Auto) (46-82) % Lymph % (Auto) (13-37) % Nelson % (Auto) (4-12) % Eos % (Auto) (1.0-5.0) % Baso % (Auto) (0-2) % Neut # (Auto) (1.6-8.3) # Lymph # (Auto) (0.6-5.0) # Nelson # (Auto) (0.0-1.3) # Eos # (Auto) (0.0-0.8) # Baso # (Auto) (0.0-0.2) # PT 11.2 H (8.7-11.1) INR 1.11 (0.89-1.13) D-Dimer, Quantitative (100-400) ng/mL Sodium (135-145) mmol/L Potassium (3.5-5.3) mmol/L Chloride (100-110) mmol/L Carbon Dioxide (21-32) mmol/L BUN (7-18) mg/dL Creatinine (0.55-1.02) mg/dL Est Cr Clr Drug Dosing Estimated GFR (MDRD) (>60) BUN/Creatinine Ratio (9-20) Glucose (80-116) mg/dL Calcium (8.6-10.2) mg/dL Total Bilirubin (0.1-1.3) mg/dL AST (5-25) IU/L ALT (12-36) U/L Alkaline Phosphatase (56-112) IU/L Troponin I < 0.017 L (<0.017-0.056) ng/mL NT-Pro-B Natriuret Pep (<=450) pg/mL Total Protein (6.0-8.0) g/dL Albumin (3.2-4.6) g/dL Globulin g/dL Albumin/Globulin Ratio Urine Color (YELLOW) Urine Appearance (CLEAR) Urine pH (5.0-6.5) Ur Specific [place] (1.010-1.025) Urine Protein (NEGATIVE) mg/dL Urine Glucose (UA) (NEGATIVE) mg/dL Urine Ketones (NEGATIVE) mg/dL Urine Occult Blood (NEGATIVE) Urine Nitrite (NEGATIVE) Urine Bilirubin (NEGATIVE) Urine Urobilinogen (NEGATIVE) mg/dL Ur Leukocyte Esterase (NEGATIVE) Urine RBC (0) Urine WBC (0) Ur Squamous Epith Cells (NS,R,O) Urine Bacteria (NS) Meds: Medications Generic Name Dose Route Start Last Admin Trade Name Raysa PRN Reason Stop Dose Admin Acetaminophen 1,000 mg 08/11/17 09:00 08/11/17 08:47 Tylenol Extra Strength PO Not Given DAILY [facility] Acetaminophen/Diphenhydramine HCl 2 tab 08/10/17 21:00 08/10/17 20:04 Tylenol Pm Extra Strength PO 2 tab BEDTIME [facility] Administration Allopurinol 150 mg 08/11/17 21:00 Zyloprim PO BEDTIME [facility] Amlodipine Besylate 5 mg 08/10/17 21:00 08/10/17 20:03 Norvasc PO 5 mg BEDTIME [facility] Administration Amoxicillin 500 mg 08/11/17 11:00 08/11/17 11:16 Amoxil PO 500 mg Q12H [facility] Administration Aspirin 325 mg 08/11/17 09:00 Ecotrin PO DAILY [facility] Cholecalciferol 2,000 units 08/10/17 21:00 08/10/17 20:04 Vitamin D3 PO 2,000 units BEDTIME [facility] Administration Docusate Sodium 100 mg 08/10/17 09:49 Colace PO BID PRN Constipation Donepezil HCl 10 mg 08/10/17 21:00 08/10/17 20:03 Aricept PO 10 mg BEDTIME [facility] Administration Enoxaparin Sodium 80 mg 08/10/17 17:00 08/11/17 16:36 Lovenox SUBCUT 80 mg Q24H [facility] Administration Latanoprost 0 ml 08/11/17 21:00 Xalatan 0.005% Ophth Soln EYEBOTH BEDTIME [facility] Memantine 10 mg 08/11/17 21:00 Namenda PO BEDTIME [facility] Sertraline HCl 25 mg 08/10/17 21:00 08/10/17 20:04 Zoloft PO 25 mg BEDTIME [facility] Administration Simvastatin 20 mg 08/11/17 21:00 Zocor PO BEDTIME [facility] Timolol Maleate 0 ml 08/12/17 09:00 Timoptic 0.5% Ophth Soln EYEBOTH DAILY [facility] Warfarin Sodium 0 each 08/10/17 17:00 Coumadin Sliding Scale PO ASDIRECTED [facility] Discontinued Medications Generic Name Dose Route Start Last Admin Trade Name Raysa PRN Reason Stop Dose Admin Allopurinol 150 mg 08/10/17 21:00 08/10/17 20:04 Zyloprim PO 150 mg BEDTIME [facility] Administration Amoxicillin 500 mg 08/11/17 10:30 08/11/17 15:47 Amoxil PO Not Given Q8H [facility] Sodium Chloride 1,000 mls @ 125 mls/hr 08/10/17 10:00 08/10/17 20:09 Normal Saline IV 125 mls/hr ASDIRECTED [facility] Administration Bimatoprost [[place]um[place] 1 drop 08/10/17 21:00 08/10/17 20:04 0.01% Ophth Soln] EYEBOTH 1 drop *Ptom BEDTIME [facility] Administration Lovastatin [ 40 mg 08/10/17 21:00 08/10/17 20:03 Lovastatin] 40 Mg * PO 40 mg Ptom BEDTIME [facility] Administration Memantine 5mg *Ptom 0 each 08/10/17 21:00 08/10/17 20:03 PO 1 each BEDTIME [facility] Administration Ondansetron HCl 4 mg 08/10/17 09:49 Zofran IV Q4H PRN Nausea/Vomiting Timolol Maleate 0 ml 08/11/17 09:00 08/11/17 08:46 Timoptic 0.5% Ophth Soln EYEBOTH 1 drop DAILY [facility] Administration Warfarin Sodium 5 mg 08/10/17 17:00 08/10/17 17:23 Coumadin PO 08/10/17 17:01 5 mg 1600 [facility] Administration Warfarin Sodium 5 mg 08/11/17 16:00 08/11/17 16:36 Coumadin PO 08/11/17 16:01 5 mg 1600 [facility] Administration Departure - Departure Time of Disposition: 09:55 Disposition: Refer to Observation Condition: Fair Clinical Impression: Sinus bradycardia seen on manager channel, Renal insufficiency - Discharge Information
[2017-08-10] MEDS ORDERED: Ondansetron 4 MG/2 ML SDV IV PRN (09:49)
[2017-08-10] MEDS ORDERED: Docusate Sodium 100 MG Cap PO PRN (09:49)
[2017-08-10] MEDS ORDERED: Sodium Chloride 0.9% 1,000 ML IV SCH (10:00)
[2017-08-10] MEDS ORDERED: Warfarin 5 MG Tab PO SCH ×2 (16:00→17:00)
[2017-08-10] MEDS ORDERED: Warfarin Sliding Scale PO SCH (17:00)
[2017-08-10] MEDS: Enoxaparin 80 MG/0.8 ML Syringe SUBCUT SCH (17:23)
--- NOTE | 2017-08-10 19:39 | PCM.HP ---
H&P History of Present Illness - General Date of Service: 08/10/17 Admit Problem/Dx: Admission Diagnosis/Problem Admission Diagnosis/Problem Dehydration Source of Information: Patient, Family - History of Present Illness Initial Comments - Free Text/Narative: Ms. Ivory was was brought to the ER because of shortness of breath sudden onset this morning. She suddenly found that she could not breathe well. She complains of no pain. Has been previously healthy with exception of chronic medical problems, that is, chronic kidney disease with baseline creatinine 1.7, hypertension, hyperparathyroidism and vitamin D deficiency and the possibility of a dementia. She specifically denies any chest pain leg swelling nausea vomiting cough or fever - Related Data Allergies/Adverse Reactions: Allergies Allergy/AdvReac Type Severity Reaction Status Date / Time No Known Allergies Allergy Verified 08/10/17 08:31 Home Medications: Home Meds Bimatoprost [LUMIGAN 0.01% Ophth Soln] 1 drop EYEBOTH BEDTIME 11/04/14 [History] Lovastatin 40 mg PO BEDTIME 11/04/14 [History] Sertraline HCl 25 mg PO BEDTIME 11/04/14 [History] Acetaminophen [Tylenol Extra Strength] 1,000 mg PO DAILY 08/18/16 [History] Acetaminophen/Diphenhydramine [Tylenol Pm Ex-Strength Caplet] 2 each PO BEDTIME 08/18/16 [History] Allopurinol [Zyloprim] 150 mg PO BEDTIME 08/18/16 [History] Donepezil HCl 10 mg PO BEDTIME 08/18/16 [History] Losartan [Cozaar] 100 mg PO BEDTIME 08/18/16 [History] Memantine HCl [Namenda] 10 mg PO BEDTIME 08/18/16 [History] Timolol Maleate [Timoptic 0.5% Ophth Soln] 1 drop EYEBOTH DAILY 08/18/16 [ History] amLODIPine [Norvasc] 5 mg PO BEDTIME 08/18/16 [History] Aspirin [Ecotrin] 325 mg PO DAILY 08/10/17 [History] Cholecalciferol (Vitamin D3) [Vitamin D3] 2,000 unit PO BEDTIME 08/10/17 [ History] Past Medical History HEENT History: Reports: Cataract, Glaucoma, Impaired Vision Cardiovascular History: Reports: High Cholesterol, Hypertension, SOB on Exertion Gastrointestinal History: Reports: GERD, Other (See Below) Other Gastrointestinal History: heartburn with Genitourinary History: Reports: Chronic Renal Insuffiency, Renal Disease Other Genitourinary History: KIDNEY DYSFUNCTION D/T [employer] History: Reports: Musculoskeletal History: Reports: Back Pain, Chronic Neurological History: Reports: Alzheimers Disease Oncologic (Cancer) History: Reports: Other (See Below) Other Oncologic History: skin cancer - Infectious Disease History Infectious Disease History: Reports: Chicken Pox, Measles, Mumps - Past Surgical History HEENT Surgical History: Reports: Cataract Surgery, Oral Surgery Musculoskeletal Surgical History: Reports: Hip Replacement, Other (See Below) Social & Family History - Family History Family Medical History: Noncontributory - Tobacco Use Smoking Status *Q: Never Smoker Second Hand Smoke Exposure: No - Caffeine Use Caffeine Use: Reports: None - Recreational Drug Use Recreational Drug Use: No H&P Review of Systems - Review of Systems: Review Of Systems: ROS reveals no pertinent complaints other than HPI. Exam - Exam Exam: See Below - Vital Signs Vital Signs: Last Vital Signs Temp 98 F 08/10/17 16:00 Pulse 56 L 08/10/17 16:00 Resp 18 08/10/17 16:00 BP 135/60 08/10/17 16:00 Pulse Ox 98 08/10/17 16:00 Weight: 71.35 kg - Exam General: Alert, Oriented, 4 HEENT: PERRLA, Hearing Intact, Mucosa Moist & Windmill, Nares Patent, Normal Nasal Septum, Posterior Pharynx Clear, Conjunctiva Clear, EOMI, EACs Clear, TMs Clear Neck: Supple, Trachea Midline, 2 Lungs: Clear to Auscultation, Normal Respiratory Effort Cardiovascular: Regular Rate, Regular Rhythm GI/Abdominal Exam: Normal Bowel Sounds, Soft, Non-Tender, No Organomegaly, No Distention, No Abnormal Bruit, No Mass, Pelvis Stable (Female) Exam: Deferred Rectal (Female) Exam: Deferred Back Exam: Normal Inspection, Full Range of Motion, NT Extremities: Normal Inspection, Normal Range of Motion, Non-Tender, No Pedal Edema, Normal Capillary Refill Skin: Warm, Dry, Intact Neurological: Cranial Nerves Intact, Reflexes Equal Bilateral Neuro Extensive - Mental Status: Alert, Oriented x3, Normal Mood/Affect, Normal Cognition Neuro Extensive - Motor, Sensory, Reflexes: CN II-XII Intact, Normal Gait, Normal Reflexes Psychiatric: Alert, Normal Affect, Normal Mood - Patient Data Lab Results Last 24 hrs: Laboratory Results - last 24 hr 08/10/17 08/10/17 08/10/17 Range/Units 08:45 08:45 08:45 WBC 5.2 (4.5-12.0) X10-3/uL RBC 3.82 (3.23-5.20) x10(6)uL Hgb 10.0 L (11.5-15.5) g/dL Hct 32.1 (30.0-51.3) % MCV 84.1 (80-96) fL MCH 26.2 L (27.7-33.6) pg MCHC 31.2 L (32.2-35.4) g/dL RDW 14.6 (11.5-15.5) % Plt Count 248 (125-369) X10(3)uL MPV 7.8 (7.4-10.4) fL Neut % (Auto) 68.2 (46-82) % Lymph % (Auto) 19.8 (13-37) % [place] % (Auto) 8.0 (4-12) % Eos % (Auto) 3 (1.0-5.0) % Baso % (Auto) 1 (0-2) % Neut # (Auto) 3.6 (1.6-8.3) # Lymph # (Auto) 1.0 (0.6-5.0) # [place] # (Auto) 0.4 (0.0-1.3) # Eos # (Auto) 0.2 (0.0-0.8) # Baso # (Auto) 0.0 (0.0-0.2) # PT 10.5 (8.7-11.1) INR 1.04 (0.89-1.13) D-Dimer, Quantitative 789 H (100-400) ng/mL Sodium (135-145) mmol/L Potassium (3.5-5.3) mmol/L Chloride (100-110) mmol/L Carbon Dioxide (21-32) mmol/L BUN (7-18) mg/dL Creatinine (0.55-1.02) mg/dL Est Cr Clr Drug Dosing Estimated GFR (MDRD) (>60) BUN/Creatinine Ratio (9-20) Glucose (80-116) mg/dL Calcium (8.6-10.2) mg/dL Troponin I (<0.017-0.056) ng/mL NT-Pro-B Natriuret Pep (<=450) pg/mL Urine Color (YELLOW) Urine Appearance (CLEAR) Urine pH (5.0-6.5) Ur Specific [place] (1.010-1.025) Urine Protein (NEGATIVE) mg/dL Urine Glucose (UA) (NEGATIVE) mg/dL Urine Ketones (NEGATIVE) mg/dL Urine Occult Blood (NEGATIVE) Urine Nitrite (NEGATIVE) Urine Bilirubin (NEGATIVE) Urine Urobilinogen (NEGATIVE) mg/dL Ur Leukocyte Esterase (NEGATIVE) Urine RBC (0) Urine WBC (0) Ur Squamous Epith Cells (NS,R,O) Urine Bacteria (NS) 08/10/17 08/10/17 08/10/17 Range/Units 08:45 08:45 08:45 WBC (4.5-12.0) X10-3/uL RBC (3.23-5.20) x10(6)uL Hgb (11.5-15.5) g/dL Hct (30.0-51.3) % MCV (80-96) fL MCH (27.7-33.6) pg MCHC (32.2-35.4) g/dL RDW (11.5-15.5) % Plt Count (125-369) X10(3)uL MPV (7.4-10.4) fL Neut % (Auto) (46-82) % Lymph % (Auto) (13-37) % [place] % (Auto) (4-12) % Eos % (Auto) (1.0-5.0) % Baso % (Auto) (0-2) % Neut # (Auto) (1.6-8.3) # Lymph # (Auto) (0.6-5.0) # [place] # (Auto) (0.0-1.3) # Eos # (Auto) (0.0-0.8) # Baso # (Auto) (0.0-0.2) # PT (8.7-11.1) INR (0.89-1.13) D-Dimer, Quantitative (100-400) ng/mL Sodium 137 (135-145) mmol/L Potassium 4.6 (3.5-5.3) mmol/L Chloride 102 (100-110) mmol/L Carbon Dioxide 21 (21-32) mmol/L BUN 27 H (7-18) mg/dL Creatinine 2.1 H* (0.55-1.02) mg/dL Est Cr Clr Drug Dosing TNP Estimated GFR (MDRD) 23 L (>60) BUN/Creatinine Ratio 12.9 (9-20) Glucose 193 H (80-116) mg/dL Calcium 9.3 (8.6-10.2) mg/dL Troponin I < 0.017 L (<0.017-0.056) ng/mL NT-Pro-B Natriuret Pep 352 (<=450) pg/mL Urine Color (YELLOW) Urine Appearance (CLEAR) Urine pH (5.0-6.5) Ur Specific [place] (1.010-1.025) Urine Protein (NEGATIVE) mg/dL Urine Glucose (UA) (NEGATIVE) mg/dL Urine Ketones (NEGATIVE) mg/dL Urine Occult Blood (NEGATIVE) Urine Nitrite (NEGATIVE) Urine Bilirubin (NEGATIVE) Urine Urobilinogen (NEGATIVE) mg/dL Ur Leukocyte Esterase (NEGATIVE) Urine RBC (0) Urine WBC (0) Ur Squamous Epith Cells (NS,R,O) Urine Bacteria (NS) 08/10/17 Range/Units 09:30 WBC (4.5-12.0) X10-3/uL RBC (3.23-5.20) x10(6)uL Hgb (11.5-15.5) g/dL Hct (30.0-51.3) % MCV (80-96) fL MCH (27.7-33.6) pg MCHC (32.2-35.4) g/dL RDW (11.5-15.5) % Plt Count (125-369) X10(3)uL MPV (7.4-10.4) fL Neut % (Auto) (46-82) % Lymph % (Auto) (13-37) % [place] % (Auto) (4-12) % Eos % (Auto) (1.0-5.0) % Baso % (Auto) (0-2) % Neut # (Auto) (1.6-8.3) # Lymph # (Auto) (0.6-5.0) # [place] # (Auto) (0.0-1.3) # Eos # (Auto) (0.0-0.8) # Baso # (Auto) (0.0-0.2) # PT (8.7-11.1) INR (0.89-1.13) D-Dimer, Quantitative (100-400) ng/mL Sodium (135-145) mmol/L Potassium (3.5-5.3) mmol/L Chloride (100-110) mmol/L Carbon Dioxide (21-32) mmol/L BUN (7-18) mg/dL Creatinine (0.55-1.02) mg/dL Est Cr Clr Drug Dosing Estimated GFR (MDRD) (>60) BUN/Creatinine Ratio (9-20) Glucose (80-116) mg/dL Calcium (8.6-10.2) mg/dL Troponin I (<0.017-0.056) ng/mL NT-Pro-B Natriuret Pep (<=450) pg/mL Urine Color Yellow (YELLOW) Urine Appearance Slightly cloudy (CLEAR) Urine pH 6.0 (5.0-6.5) Ur Specific [place] 1.015 (1.010-1.025) Urine Protein 30 H (NEGATIVE) mg/dL Urine Glucose (UA) Normal (NEGATIVE) mg/dL Urine Ketones 15 H (NEGATIVE) mg/dL Urine Occult Blood Moderate H (NEGATIVE) Urine Nitrite Negative (NEGATIVE) Urine Bilirubin Moderate H (NEGATIVE) Urine Urobilinogen 1 H (NEGATIVE) mg/dL Ur Leukocyte Esterase Large H (NEGATIVE) Urine RBC 0-5 (0) Urine WBC 20-30 H (0) Ur Squamous Epith Cells Few H (NS,R,O) Urine Bacteria Many H (NS) Result Diagrams: 08/10/17 08:45 08/10/17 08:45 - Problem List (1) SOB (shortness of breath) SNOMED Code(s): 216146583 ICD Code: R06.02 - SHORTNESS OF BREATH Status: Acute Current Visit: Yes (2) DVT (deep venous thrombosis) SNOMED Code(s): 988078542 ICD Code: I82.409 - ACUTE EMBOLISM AND THOMBOS UNSP DEEP VN UNSP LOWER EXTREMITY Status: Acute Current Visit: Yes (3) HTN (hypertension) SNOMED Code(s): 33335965 ICD Code: I10 - ESSENTIAL (PRIMARY) HYPERTENSION Status: Acute Current Visit: Yes (4) Hyperparathyroidism SNOMED Code(s): 67358580 ICD Code: E21.3 - HYPERPARATHYROIDISM, UNSPECIFIED Status: Acute Current Visit: Yes (5) Vitamin D deficiency SNOMED Code(s): 07354406 ICD Code: E55.9 - VITAMIN D DEFICIENCY, UNSPECIFIED Status: Acute Current Visit: Yes (6) CKD (chronic kidney disease) SNOMED Code(s): 477436534 ICD Code: N18.9 - CHRONIC KIDNEY DISEASE, UNSPECIFIED Status: Acute Current Visit: Yes (7) Lateral malleolar fracture SNOMED Code(s): 438027568 ICD Code: S82.63XA - DISP FX OF LATERAL MALLEOLUS OF UNSP FIBULA, INIT Status: Acute Current Visit: Yes (8) Anemia, chronic disease SNOMED Code(s): 648996343 ICD Code: D63.8 - ANEMIA IN OTHER CHRONIC DISEASES CLASSIFIED ELSEWHERE Status: Acute Current Visit: Yes (9) Asymptomatic bacteriuria SNOMED Code(s): 058832758 ICD Code: R82.71 - BACTERIURIA Status: Acute Current Visit: Yes Problem List Initiated/Reviewed/Updated: Yes Orders Last 24hrs: Active Orders 24 hr Category Date Time Status Patient Status [ADT] Routine ADT 08/10/17 09:50 Active Cardiac Monitoring [RC] INTERMITTENT Care 08/10/17 09:53 Active EKG Documentation Completion [RC] ASDIRECTED Care 08/10/17 16:29 Active Oxygen Therapy [RC] PRN Care 08/10/17 09:50 Active Pulse Oximetry [RC] PRN Care 08/10/17 09:53 Active VTE/DVT Education [RC] Per Unit Routine Care 08/10/17 09:50 Active Vital Signs [RC] 08,12,16,20,00,04 Care 08/10/17 09:50 Active Regular Diet [DIET] Diet 08/10/17 Breakfast Ordered Chest 1V Frontal [CR] Stat Exams 08/10/17 08:27 Taken VL Duplex Upr Ext Veins Comp [US] Stat Exams 08/10/17 09:47 Taken CBC WITH AUTO DIFF [HEME] AM Lab 08/11/17 05:11 Ordered COMPREHENSIVE METABOLIC PN,CMP [CHEM] AM Lab 08/11/17 05:11 Ordered CULTURE URINE [RM] Routine Lab 08/10/17 09:30 Received INR,PT,PROTHROMBIN TIME [COAG] DAILY Lab 08/11/17 16:54 Ordered INR,PT,PROTHROMBIN TIME [COAG] DAILY Lab 08/12/17 16:54 Ordered INR,PT,PROTHROMBIN TIME [COAG] DAILY Lab 08/13/17 16:54 Ordered INR,PT,PROTHROMBIN TIME [COAG] DAILY Lab 08/14/17 16:54 Ordered INR,PT,PROTHROMBIN TIME [COAG] DAILY Lab 08/15/17 16:54 Ordered INR,PT,PROTHROMBIN TIME [COAG] DAILY Lab 08/16/17 16:54 Ordered INR,PT,PROTHROMBIN TIME [COAG] DAILY Lab 08/17/17 16:54 Ordered INR,PT,PROTHROMBIN TIME [COAG] DAILY Lab 08/18/17 16:54 Ordered TROPONIN I [CHEM] AM Lab 08/11/17 05:11 Ordered UA W/MICROSCOPIC [URIN] Stat Lab 08/10/17 09:30 Ordered Acetaminophen [Tylenol Extra Strength] Med 08/11/17 09:00 Active 1,000 mg PO DAILY Acetaminophen/Diphenhydramine [Tylenol PM Extra Med 08/10/17 21:00 Active Strength] 2 tab PO BEDTIME Allopurinol [Zyloprim] Med 08/10/17 21:00 Active 150 mg PO BEDTIME Aspirin [Ecotrin] Med 08/11/17 09:00 Hold 325 mg PO DAILY Bimatoprost [LUMIGAN 0.01% Ophth Soln] Med 08/10/17 21:00 Active 1 drop EYEBOTH BEDTIME Cholecalciferol (Vitamin D3) [Vitamin D3] Med 08/10/17 21:00 Active 2,000 units PO BEDTIME Docusate Sodium [Colace] Med 08/10/17 09:49 Active 100 mg PO BID PRN Donepezil [Aricept] Med 08/10/17 21:00 Active 10 mg PO BEDTIME Enoxaparin [Lovenox] Med 08/10/17 17:00 Active 80 mg SUBCUT Q24H Lovastatin [Lovastatin] Med 08/10/17 21:00 Active 40 mg PO BEDTIME Non-Formulary Medication [NF Drug] Med 08/10/17 21:00 Active 0 each PO BEDTIME Sertraline [Zoloft] Med 08/10/17 21:00 Active 25 mg PO BEDTIME Timolol Maleate [Timoptic 0.5% Ophth Soln] Med 08/11/17 09:00 Active 0 ml EYEBOTH DAILY Warfarin Sliding Scale [Coumadin Sliding Scale] Med 08/10/17 17:00 Pending See Dose Instructions PO ASDIRECTED amLODIPine [Norvasc] Med 08/10/17 21:00 Active 5 mg PO BEDTIME Resuscitation Status Routine Resus Stat 08/10/17 09:49 Ordered EKG 12 Lead [EK] AM Ther 08/11/17 05:11 Ordered EKG 12 Lead [EK] Routine Ther 08/10/17 08:29 Ordered Medication Orders Acetaminophen (Tylenol Extra Strength) 1,000 mg PO DAILY [facility] Acetaminophen/Diphenhydramine HCl (Tylenol Pm Extra Strength) 2 tab PO BEDTIME [facility] Allopurinol (Zyloprim) 150 mg PO BEDTIME [facility] Amlodipine Besylate (Norvasc) 5 mg PO BEDTIME [facility] Aspirin (Ecotrin) 325 mg PO DAILY [facility] Cholecalciferol (Vitamin D3) 2,000 units PO BEDTIME [facility] Docusate Sodium (Colace) 100 mg PO BID PRN PRN Reason: Constipation Donepezil HCl (Aricept) 10 mg PO BEDTIME [facility] Enoxaparin Sodium (Lovenox) 80 mg SUBCUT Q24H [facility] Last Admin: 08/10/17 17:23 Dose: 80 mg Bimatoprost [Lumigan 0.01% Ophth Soln] *Ptom 1 drop EYEBOTH BEDTIME [facility] Lovastatin [ Lovastatin] 40 Mg * Ptom 40 mg PO BEDTIME [facility] Memantine 5mg *Ptom 0 each PO BEDTIME [facility] Sertraline HCl (Zoloft) 25 mg PO BEDTIME [facility] Timolol Maleate (Timoptic 0.5% Ophth Soln) 0 ml EYEBOTH DAILY [facility] Warfarin Sodium (Coumadin Sliding Scale) 0 each PO ASDIRECTED [facility] Assessment/Plan Comment:: An ultrasound done revealed DVT of the left popliteal vein. A d-dimer was high but a creatinine precludes getting a CT scan. Patient will be started on Lovenox and Coumadin. IV fluids were given most of the day but I'll Hep-Lock them tonight and repeat electrical next morning. In addition I will repeat an EKG troponin and blood count. She looks stable enough that she could easily go home on low molecular weight heparin, and oral Coumadin,but Dr. Kim should take over care tomorrow morning. Please note that she has no symptoms suggestive of a urinary tract infection, therefore no need for antibiotics and we will treat this as asymptomatic bacteriuria.
[2017-08-10] MEDS: Donepezil 10 MG Tab PO SCH (20:03)
[2017-08-10] MEDS: amLODIPine 5 MG Tab PO SCH (20:03)
[2017-08-10] MEDS: Cholecalciferol (Vitamin D3) 1,000 Unit Tab PO SCH (20:04)
[2017-08-10] MEDS: Sertraline 25 MG Tab PO SCH (20:04)
[2017-08-10] MEDS: Acetaminophen/Diphenhydramine 500-25 MG Tab PO SCH (20:04)
[2017-08-10] MEDS ORDERED: LOVASTATIN 40 MG PO SCH (21:00)
[2017-08-10] MEDS ORDERED: Allopurinol 100 MG Tab *PTOM PO SCH (21:00)
[2017-08-10] MEDS ORDERED: BIMATOPROST EYEBOTH SCH (21:00)
[2017-08-10] MEDS ORDERED: MEMANTINE 5 MG PO SCH (21:00)
[2017-08-11] MEDS: Acetaminophen 500 MG Tab PO SCH (08:47)
--- NOTE | 2017-08-11 08:51 | US ---
INDICATION: Elevated D-dimer - question DVT, history of left ankle fracture. DUPLEX ULTRASOUND, RIGHT LOWER EXTREMITY VEINS: Utilizing 2-D real time, duplex Doppler spectral analysis and color flow imaging, examination of the right lower extremity veins revealed no evidence of deep venous thrombosis or obstruction. Compression views showed no abnormal lack of compression to suggest thrombosis. No evidence of incompetence of the valves was identified. IMPRESSION: Duplex ultrasound, right lower extremity veins, shows no evidence of deep venous thrombosis or incompetence. DUPLEX ULTRASOUND, LEFT LOWER EXTREMITY VEINS: Utilizing 2-D real time, duplex Doppler spectral analysis and color flow imaging, examination of the left lower extremity veins revealed a somewhat dilated, echogenic filled distal deep femoral vein of the distal portion of the thigh just above the knee. This area compresses almost completely but does show a small lack of compression and shows only partial flow through this area. Findings are compatible with a deep venous thrombosis, likely acute but not obstructive. No other significant abnormalities were identified. IMPRESSION: Deep venous thrombosis, partially obstructive, at the distal thigh - distal deep femoral vein. Report was called to [place] on the floor for Dr. Rubin Jacobson, and the report was given by phone to Dr. Jacobson subsequently at 1647 hours on 2017. [facility]
[2017-08-11] MEDS ORDERED: Aspirin 325 MG Tab.EC PO SCH (09:00)
[2017-08-11] MEDS ORDERED: TIMOLOL MALEATE 0.5% EYEBOTH SCH (09:00)
[2017-08-11] MEDS ORDERED: Amoxicillin 500 MG Cap PO SCH (10:30)
--- NOTE | 2017-08-11 10:57 | CR ---
INDICATION: Short of breath. CHEST: A single AP view of the chest was obtained upright 08/10/2017 - no comparisons. The heart appears slightly prominent in size but likely is within normal limits in size, allowing for the AP positioning. A mass behind the heart is noted, compatible with a moderately large fixed hiatal hernia. The aorta is somewhat tortuous. There is some minimal calcification in the arch of the aorta. Overlying EKG leads are noted. An active infiltrate or effusion was not identified. Degenerative changes are noted in the spine with a dextroconvex scoliosis of mild degree of the upper middle thoracic spine. IMPRESSION: No definite acute process - findings as noted above. MTDD
[2017-08-11] MEDS: Amoxicillin 500 MG Cap PO SCH (11:16)
--- NOTE | 2017-08-11 13:44 | PN ---
DATE SEEN: 08/11/2017 HISTORY OF PRESENT ILLNESS: Dunia Ramos is a 76-year-old, female, admitted with acute shortness of breath, strong suspicion for pulmonary embolism, confirmed DVT distal left lower extremity. Presently on Lovenox and Coumadin therapy. Feeling much better. Shortness of breath has improved, comfortable on supplemental O2. LABORATORY STUDIES: Hemoglobin 9.4 and 10.0, chronic renal failure related, white count 5,200. INR 1.04. D-dimer 789, complementary, creatinine was 2.1. Urinalysis suggests UTI with leukocytosis. PHYSICAL EXAMINATION: VITAL SIGNS: Stable. Temperature 36.8, 57 is the pulse, 83, 18, and 98%. GENERAL: Appears comfortable. No shortness of breath. NECK: Benign. Thyroid small. CHEST: Clear in all lung barnes. HEART: Regular without ectopy or murmur. ABDOMEN: Benign. EXTREMITIES: No definable pain in the lower extremities, moderate edema. ASSESSMENT: 1. Deep venous thrombosis confirmed, pulmonary embolism suspected, Coumadin therapy in place. 2. Urinary tract infection. PLAN: We will discontinue telemetry, treat with antibiotics for urinary tract infection. Continue present therapy and treatment. /[id number] FERNANDO/LU
[2017-08-11] MEDS ORDERED: Warfarin 5 MG Tab PO SCH (16:00)
[2017-08-11] MEDS: Enoxaparin 80 MG/0.8 ML Syringe SUBCUT SCH (16:36)
[2017-08-11] MEDS: Memantine 10 MG Tab PO SCH (20:35)
[2017-08-11] MEDS: Donepezil 10 MG Tab PO SCH (20:35)
[2017-08-11] MEDS: amLODIPine 5 MG Tab PO SCH (20:35)
[2017-08-11] MEDS: Cholecalciferol (Vitamin D3) 1,000 Unit Tab PO SCH (20:36)
[2017-08-11] MEDS: Acetaminophen/Diphenhydramine 500-25 MG Tab PO SCH (20:36)
[2017-08-11] MEDS: Latanoprost 0.005% Ophth Soln 2.5 ML Bottle EYEBOTH SCH (20:36)
[2017-08-11] MEDS: Simvastatin 20 MG Tab PO SCH (20:37)
[2017-08-11] MEDS: Sertraline 25 MG Tab PO SCH (20:37)
[2017-08-11] MEDS: Allopurinol 300 MG Tab PO SCH (20:38)
[2017-08-12] MEDS: Amoxicillin 500 MG Cap PO SCH ×3 (02:07→23:37)
[2017-08-12] MEDS: Acetaminophen 500 MG Tab PO SCH (08:40)
[2017-08-12] MEDS: Timolol Maleate 0.5% Ophth Soln 5 ML Bottle EYEBOTH SCH (08:40)
--- NOTE | 2017-08-12 13:14 | PN ---
DATE SEEN: 08/12/2017 SUBJECTIVE: Dunia Ramos is a 76-year-old female, admitted with acute shortness of breath, suspect for PE, declined CT due to contrast issues, was found on ultrasound to have DVT left lower extremity. Elective treatment Coumadin given age and circumstance. Doing well. No particular complaints or concerns. Laboratory studies reviewed. OBJECTIVE: VITAL SIGNS: 36.5, 72 kg, 54 is the pulse, 138/68, 18, and 98%. GENERAL: In good spirits. NECK: Benign. Thyroid small. CHEST: Clear in all lung barnes. No adventitious sounds. HEART: Regular without ectopy or murmur. ABDOMEN: Benign. EXTREMITIES: No palpable tenderness either lower extremity. Moderate edema. ASSESSMENT: 1. Deep venous thrombosis. 2. Shortness of breath. PLAN: Coumadin more therapeutic, INR now 1.5. We will continue medications and treatment. Addendum; UTI at present Klebsiella responsive to amoxicillin. We will continue with 5-day course. /[id number] FERNANDO/LU MTDD
[2017-08-12] MEDS ORDERED: Warfarin 2.5 MG Tab PO SCH (16:00)
[2017-08-12] MEDS: Enoxaparin 80 MG/0.8 ML Syringe SUBCUT SCH (16:13)
[2017-08-12] MEDS: Memantine 10 MG Tab PO SCH (20:20)
[2017-08-12] MEDS: Donepezil 10 MG Tab PO SCH (20:20)
[2017-08-12] MEDS: Cholecalciferol (Vitamin D3) 1,000 Unit Tab PO SCH (20:21)
[2017-08-12] MEDS: Acetaminophen/Diphenhydramine 500-25 MG Tab PO SCH (20:21)
[2017-08-12] MEDS: Latanoprost 0.005% Ophth Soln 2.5 ML Bottle EYEBOTH SCH (20:21)
[2017-08-12] MEDS: amLODIPine 5 MG Tab PO SCH (20:21)
[2017-08-12] MEDS: Sertraline 25 MG Tab PO SCH (20:22)
[2017-08-12] MEDS: Simvastatin 20 MG Tab PO SCH (20:22)
[2017-08-12] MEDS: Allopurinol 300 MG Tab PO SCH (20:22)
[2017-08-13] MEDS: Timolol Maleate 0.5% Ophth Soln 5 ML Bottle EYEBOTH SCH (08:08)
[2017-08-13] MEDS: Acetaminophen 500 MG Tab PO SCH (08:08)
[2017-08-13 09:32] VITALS: BP 118/62
[2017-08-13] MEDS: Amoxicillin 500 MG Cap PO SCH (10:37)
[2017-08-13] MEDS ORDERED: Warfarin 2 MG Tab PO SCH (16:00)
[2017-08-13] MEDS ORDERED: Warfarin 2.5 MG Tab PO SCH (16:00)
--- NOTE | 2017-08-14 11:27 | DISCH ---
DISCHARGE DATE: 08/13/2017 DISCHARGE DIAGNOSIS: Left lower extremity deep vein thrombosis, probable pulmonary embolism. HOSPITAL COURSE: Dunia Ramos is a 76-year-old female admitted to [facility] with shortness of breath, acute onset, difficulty breathing. Has had a recent left ankle fracture, decreasing activity. Examination suspected PE, contrast issues with kidney function contrary, lower extremity DVT convened of left lower extremity. Was placed on Lovenox therapy and Coumadin therapy. Medications were adjusted accordingly. Coumadin got to therapeutic 2.76 on 2.5 mg, tolerated well. OBJECTIVE: Exam was satisfactory. CHEST: Clear. HEART: Regular. ABDOMEN: Benign. LABORATORY DATA: Other laboratory studies stable including platelets of 221 and 248. Other medications were compatible and without conflict. There were no cardiac issues complementary. DISPOSITION: At the time of discharge, she was up ambulating, doing well, and comfortable. DISCHARGE MEDICATIONS: Please see med recon list. SURGICAL PROCEDURES: None. CONSULTATIONS: None. /[id number] FERNANDO/LU
--- NOTE | 2017-08-15 12:17 | US ---
INDICATION: Elevated D-dimer - question DVT, history of left ankle fracture. DUPLEX ULTRASOUND, RIGHT LOWER EXTREMITY VEINS: Utilizing 2-D real time, duplex Doppler spectral analysis and color flow imaging, examination of the right lower extremity veins revealed no evidence of deep venous thrombosis or obstruction. Compression views showed no abnormal lack of compression to suggest thrombosis. No evidence of incompetence of the valves was identified. IMPRESSION: Duplex ultrasound, right lower extremity veins, shows no evidence of deep venous thrombosis or incompetence. DUPLEX ULTRASOUND, LEFT LOWER EXTREMITY VEINS: Utilizing 2-D real time, duplex Doppler spectral analysis and color flow imaging, examination of the left lower extremity veins revealed a somewhat dilated, echogenic filled distal deep femoral vein of the distal portion of the thigh just above the knee. This area compresses almost completely but does show a small lack of compression and shows only partial flow through this area. Findings are compatible with a deep venous thrombosis, likely acute, but not obstructive. No other significant abnormalities were identified. IMPRESSION: Deep venous thrombosis, partially obstructive, at the distal thigh - distal deep femoral vein. Report was called to [place] on the floor for Dr. Rubin Jacobson, and the report was given by phone to Dr. Jacobson subsequently at 1647 hours on 2017. [facility]
== END 2017-08-13 10:48 | disposition home or self-care (01) | DRG 299 ==
LOC: FB.ED 08:17 → FB.MS 09:56 → OBSVTOIN 08-11 09:49
PROVIDERS: ADMIT Family Medicine; ATTEND Family Medicine
DX: R53.1 Weakness (principal); R06.02 Shortness of breath; N28.9 Disorder of kidney and ureter, unspecified; I82.432 Acute embolism and thrombosis of left popliteal vein; I26.99 Other pulmonary embolism without acute cor pulmonale; R41.82 Altered mental status, unspecified; R79.1 Abnormal coagulation profile; N39.0 Urinary tract infection, site not specified; E78.00 Pure hypercholesterolemia, unspecified; I10 Essential (primary) hypertension; K21.9 Gastro-esophageal reflux disease without esophagitis; G89.29 Other chronic pain; M54.9 Dorsalgia, unspecified; G30.0 Alzheimer's disease with early onset; F02.80 Dementia in other diseases classified elsewhere, unspecified severity, without behavioral disturbance, psychotic disturbance, mood disturbance, and anxiety; H40.9 Unspecified glaucoma; B96.1 Klebsiella pneumoniae [K. pneumoniae] as the cause of diseases classified elsewhere; H54.7 Unspecified visual loss; E86.0 Dehydration; I12.9 Hypertensive chronic kidney disease with stage 1 through stage 4 chronic kidney disease, or unspecified chronic kidney disease; N18.9 Chronic kidney disease, unspecified; E21.3 Hyperparathyroidism, unspecified; E55.9 Vitamin D deficiency, unspecified; D63.8 Anemia in other chronic diseases classified elsewhere; Z85.828 Personal history of other malignant neoplasm of skin; R00.1 Bradycardia, unspecified; Z79.82 Long term (current) use of aspirin; Z79.899 Other long term (current) drug therapy; Z96.649 Presence of unspecified artificial hip joint
CPT/HCPCS: 36415 ×2; 71045; 80048; 80053; 81001; 83880; 84484 ×2; 85025 ×2; 85379; 85610 ×2; 87086; 93005 ×2; 93970; 96360; 96361; 96372; 99285; A9270 ×11; G0378 ×2; J1650; J7040; 87088; 87186; 99284

== ENCOUNTER 2019-02-03 11:03 | Emergency (ER) | payer MEDICARE, BC ==
--- NOTE | 2019-02-03 11:37 | EDM.PDOC ---
ED HPI GENERAL MEDICAL PROBLEM - General Stated Complaint: BACK PAIN Time Seen by Provider: 02/03/19 11:03 Source of Information: Reports: Patient, Family History Limitations: Reports: Other (poor historian) - History of Present Illness INITIAL COMMENTS - FREE TEXT/NARRATIVE: 78 y.o.w.f came to the ed with her daughters due to acute onset of right flank pain and SOB. Pt denies trauma, no H/O kidney stones, no previous abdominal surgeries. No F/C. Pt lives by herself but her daughters live close by. Pt is a poor historian, Pt stated she can can not breath, because she is so nervous. Pt denies a H/O PE. She has H/O CRI. Her baseline CR is about 2.0. As per family , the pt is not "drinking enough" water. No C/P, no N/V. Pt has a loose stool in the past few days. No other acute med issues. BP 136/63 Pulse 69 RR 18 Pulse ox 98% on RA Temp 36.4 Onset Date: 02/02/19 Onset Time: 19:00 Duration: Hour(s):, Getting Worse, Intermittent Location: Reports: Abdomen (right flank pain) Quality: Reports: Ache, Dull Severity: Moderate Improves with: Reports: None Worsens with: Reports: None Context: Reports: Other Associated Symptoms: Reports: Other (anxious) Right Back Pain Score (Numeric/FACES): 6 - Related Data Allergies Allergy/AdvReac Type Severity Reaction Status Date / Time No Known Allergies Allergy Verified 02/03/19 12:47 Home Meds: Home Meds Lovastatin 40 mg PO BEDTIME 11/04/14 [History] Allopurinol [Zyloprim] 100 mg PO DAILY 08/18/16 [History] Donepezil HCl 10 mg PO BEDTIME 08/18/16 [History] Memantine HCl [Namenda] 10 mg PO BEDTIME 08/18/16 [History] Cholecalciferol (Vitamin D3) [Vitamin D3] 2,000 unit PO BEDTIME 08/10/17 [ History] Calcifediol [Rayaldee] 30 mcg PO BEDTIME 02/03/19 [History] Ferrous Sulfate 324 mg PO DAILY 02/03/19 [History] Furosemide 20 mg PO DAILY 02/03/19 [History] Pilocarpine [Pilocar 1% Ophth Soln] 02/03/19 [History] Potassium Chloride [Klor-Con M20] 20 meq PO DAILY 02/03/19 [History] Past Medical History HEENT History: Reports: Cataract, Glaucoma, Impaired Vision Cardiovascular History: Reports: High Cholesterol, Hypertension, SOB on Exertion Gastrointestinal History: Reports: GERD, Other (See Below) Other Gastrointestinal History: heartburn with Genitourinary History: Reports: Chronic Renal Insuffiency, Renal Disease Other Genitourinary History: KIDNEY DYSFUNCTION D/T [employer] History: Reports: Musculoskeletal History: Reports: Back Pain, Chronic Neurological History: Reports: Alzheimers Disease Oncologic (Cancer) History: Reports: Other (See Below) Other Oncologic History: skin cancer - Infectious Disease History Infectious Disease History: Reports: Mumps - Past Surgical History HEENT Surgical History: Reports: Cataract Surgery, Oral Surgery Musculoskeletal Surgical History: Reports: Hip Replacement, Other (See Below) Social & Family History - Family History Family Medical History: Noncontributory - Caffeine Use Caffeine Use: Reports: None ED ROS GENERAL - Review of Systems Review Of Systems: See Below Constitutional: Reports: No Symptoms HEENT: Reports: No Symptoms Respiratory: Reports: Shortness of Breath (feels SOB) Cardiovascular: Reports: No Symptoms Endocrine: Reports: No Symptoms GI/Abdominal: Reports: Abdominal Pain (righ flank pain) : Reports: Dysuria, Flank Pain, Frequency Musculoskeletal: Reports: No Symptoms Skin: Reports: No Symptoms Neurological: Reports: No Symptoms Psychiatric: Reports: No Symptoms Hematologic/Lymphatic: Reports: No Symptoms Immunologic: Reports: No Symptoms ED EXAM,LOWER BACK PAIN/INJURY - Physical Exam Exam: See Below Exam Limited By: No Limitations General Appearance: Alert, WD/WN, Mild Distress Eye Exam: Bilateral Eye: Normal Inspection Ears: Normal External Exam Nose: Normal Inspection Throat/Mouth: Normal Lips, Normal Voice, No Airway Compromise Head: Atraumatic, Normocephalic Neck: Normal Inspection, Supple, Non-Tender Respiratory/Chest: No Respiratory Distress, Lungs Clear, Normal Breath Sounds, Chest Non-Tender Cardiovascular: Normal Peripheral Pulses, Regular Rate, Rhythm GI/Abdominal: Normal Bowel Sounds, Soft, Other (right flank) (Female) Exam: Deferred Rectal (Female) Exam: Deferred Back Exam: Normal Inspection, Full Range of Motion Extremities: Normal Inspection, Normal Range of Motion, Non-Tender Neurological: Alert, Normal Mood/Affect, Normal Dorsiflexion, CN II-XII Intact, Normal Gait, Oriented x 3 Psychiatric: Normal Affect, Normal Mood Skin Exam: Warm, Dry, Intact, Normal Color, No Rash Lymphatic: No Adenopathy EKG INTERPRETATION EKG Date: 02/03/19 Time: 11:45 Rhythm: NSR Rate (Beats/Min): 57 [place]: Normal P-Wave: Present QRS: Normal ST-T: Normal QT: Normal Comparison: NA - No Prior EKG Course - Vital Signs Text/Narrative:: 78 y.o.w.f came to the ed with her daughters due to acute onset of right flank pain and SOB. Pt denies trauma, no H/O kidney stones, no previous abdominal surgeries. No F/C. Pt lives by herself but her daughters live close by. Pt is a poor historian, Pt stated she can can not breath, because she is so nervous. Pt denies a H/O PE. She has H/O CRI. Her baseline CR is about 2.0. As per family , the pt is not "drinking enough" water. No C/P, no N/V. Pt has a loose stool in the past few days. No other acute med issues. BP 136/63 Pulse 69 RR 18 Pulse ox 98% on RA Temp 36.4 PE: WNWD W F with left flank pain, no Dysuria! Imaging: Nephrolithiasis, Hiatal hernia, Calcified GB fundus, GB stone, possible Cancer Diverticulosis, Official report is pending Labs: CBC nl D Dimer 0.86 ( possible due to elevated Cr) Cr. 2.0 BUN: 19 UA: Pos LE. Occult blood Lactic acid 1.7 UCx is pending Impression: Nephrolithiasis without [place], Hiatal hernia, Calcified GB fundus, GB stone, possible Cancer Diverticulosis. Berto Hematuria, Dehydration Tx: Pt was taking fluids well in the ED Reexam: Improved Plan: D/C with instructions Last Recorded V/S: Last Vital Signs Temp 36.2 C 02/03/19 11:03 Pulse 69 02/03/19 11:03 Resp 18 02/03/19 11:03 BP 137/63 02/03/19 11:03 Pulse Ox 100 02/03/19 11:03 - Orders/Labs/Meds Orders: Active Orders 24 hr Category Date Time Status EKG Documentation Completion [RC] ASDIRECTED Care 02/03/19 11:35 Active Abdomen Pelvis wo Cont [CT] Stat Exams 02/03/19 12:57 Taken CULTURE URINE [RM] Stat Lab 02/03/19 12:33 Received EKG 12 Lead [EK] Routine Ther 02/03/19 11:35 Ordered Labs: Laboratory Tests 02/03/19 02/03/19 02/03/19 Range/Units 11:25 11:25 11:25 WBC 8.7 (4.5-12.0) X10-3/uL RBC 4.80 (3.23-5.20) x10(6)uL Hgb 14.8 (11.5-15.5) g/dL Hct 44.2 D (30.0-51.3) % MCV 92.0 (80-96) fL MCH 30.8 (27.7-33.6) pg MCHC 33.5 (32.2-35.4) g/dL RDW 13.2 (11.5-15.5) % Plt Count 216 (125-369) X10(3)uL MPV 8.2 (7.4-10.4) fL Neut % (Auto) 74.6 (46-82) % Lymph % (Auto) 15.3 (13-37) % [place] % (Auto) 7.9 (4-12) % Eos % (Auto) 2 (1.0-5.0) % Baso % (Auto) 1 (0-2) % Neut # (Auto) 6.6 (1.6-8.3) # Lymph # (Auto) 1.3 (0.6-5.0) # [place] # (Auto) 0.7 (0.0-1.3) # Eos # (Auto) 0.1 (0.0-0.8) # Baso # (Auto) 0.0 (0.0-0.2) # D-Dimer, Quantitative (0.0-0.59) mg/LFEU Sodium 141 (135-145) mmol/L Potassium 3.9 (3.5-5.3) mmol/L Chloride 101 D (100-110) mmol/L Carbon Dioxide 26 (21-32) mmol/L BUN 19 H D (7-18) mg/dL Creatinine 2.0 H* (0.55-1.02) mg/dL Est Cr Clr Drug Dosing TNP Estimated GFR (MDRD) 24 L (>60) BUN/Creatinine Ratio 9.5 (9-20) Glucose 119 H (80-116) mg/dL Lactic Acid 1.7 (0.4-2.2) mmol/L Calcium 10.0 (8.6-10.2) mg/dL Total Bilirubin (0.1-1.3) mg/dL Direct Bilirubin (0.10-0.20) mg/dL AST (5-25) IU/L ALT (12-36) U/L Alkaline Phosphatase (56-112) IU/L Troponin I (<0.017-0.056) ng/mL Total Protein (6.0-8.0) g/dL Albumin (3.2-4.6) g/dL Urine Color (YELLOW) Urine Appearance (CLEAR) Urine pH (5.0-6.5) Ur Specific [place] (1.010-1.025) Urine Protein (NEGATIVE) mg/dL Urine Glucose (UA) (NORMAL) mg/dL Urine Ketones (NEGATIVE) mg/dL Urine Occult Blood (NEGATIVE) Urine Nitrite (NEGATIVE) Urine Bilirubin (NEGATIVE) Urine Urobilinogen (NEGATIVE) mg/dL Ur Leukocyte Esterase (NEGATIVE) Urine RBC (0-5) Urine WBC (0-5) Ur Squamous Epith Cells (NS,R,O) Urine Bacteria (NS) 02/03/19 02/03/19 02/03/19 Range/Units 11:25 11:25 11:25 WBC (4.5-12.0) X10-3/uL RBC (3.23-5.20) x10(6)uL Hgb (11.5-15.5) g/dL Hct (30.0-51.3) % MCV (80-96) fL MCH (27.7-33.6) pg MCHC (32.2-35.4) g/dL RDW (11.5-15.5) % Plt Count (125-369) X10(3)uL MPV (7.4-10.4) fL Neut % (Auto) (46-82) % Lymph % (Auto) (13-37) % [place] % (Auto) (4-12) % Eos % (Auto) (1.0-5.0) % Baso % (Auto) (0-2) % Neut # (Auto) (1.6-8.3) # Lymph # (Auto) (0.6-5.0) # [place] # (Auto) (0.0-1.3) # Eos # (Auto) (0.0-0.8) # Baso # (Auto) (0.0-0.2) # D-Dimer, Quantitative 0.86 H (0.0-0.59) mg/LFEU Sodium (135-145) mmol/L Potassium (3.5-5.3) mmol/L Chloride (100-110) mmol/L Carbon Dioxide (21-32) mmol/L BUN (7-18) mg/dL Creatinine (0.55-1.02) mg/dL Est Cr Clr Drug Dosing Estimated GFR (MDRD) (>60) BUN/Creatinine Ratio (9-20) Glucose (80-116) mg/dL Lactic Acid (0.4-2.2) mmol/L Calcium (8.6-10.2) mg/dL Total Bilirubin 1.0 (0.1-1.3) mg/dL Direct Bilirubin 0.18 (0.10-0.20) mg/dL AST 28 H D (5-25) IU/L ALT 25 D (12-36) U/L Alkaline Phosphatase 102 (56-112) IU/L Troponin I < 0.017 L (<0.017-0.056) ng/mL Total Protein 8.0 (6.0-8.0) g/dL Albumin 4.1 (3.2-4.6) g/dL Urine Color (YELLOW) Urine Appearance (CLEAR) Urine pH (5.0-6.5) Ur Specific [place] (1.010-1.025) Urine Protein (NEGATIVE) mg/dL Urine Glucose (UA) (NORMAL) mg/dL Urine Ketones (NEGATIVE) mg/dL Urine Occult Blood (NEGATIVE) Urine Nitrite (NEGATIVE) Urine Bilirubin (NEGATIVE) Urine Urobilinogen (NEGATIVE) mg/dL Ur Leukocyte Esterase (NEGATIVE) Urine RBC (0-5) Urine WBC (0-5) Ur Squamous Epith Cells (NS,R,O) Urine Bacteria (NS) 02/03/19 Range/Units 12:33 WBC (4.5-12.0) X10-3/uL RBC (3.23-5.20) x10(6)uL Hgb (11.5-15.5) g/dL Hct (30.0-51.3) % MCV (80-96) fL MCH (27.7-33.6) pg MCHC (32.2-35.4) g/dL RDW (11.5-15.5) % Plt Count (125-369) X10(3)uL MPV (7.4-10.4) fL Neut % (Auto) (46-82) % Lymph % (Auto) (13-37) % [place] % (Auto) (4-12) % Eos % (Auto) (1.0-5.0) % Baso % (Auto) (0-2) % Neut # (Auto) (1.6-8.3) # Lymph # (Auto) (0.6-5.0) # [place] # (Auto) (0.0-1.3) # Eos # (Auto) (0.0-0.8) # Baso # (Auto) (0.0-0.2) # D-Dimer, Quantitative (0.0-0.59) mg/LFEU Sodium (135-145) mmol/L Potassium (3.5-5.3) mmol/L Chloride (100-110) mmol/L Carbon Dioxide (21-32) mmol/L BUN (7-18) mg/dL Creatinine (0.55-1.02) mg/dL Est Cr Clr Drug Dosing Estimated GFR (MDRD) (>60) BUN/Creatinine Ratio (9-20) Glucose (80-116) mg/dL Lactic Acid (0.4-2.2) mmol/L Calcium (8.6-10.2) mg/dL Total Bilirubin (0.1-1.3) mg/dL Direct Bilirubin (0.10-0.20) mg/dL AST (5-25) IU/L ALT (12-36) U/L Alkaline Phosphatase (56-112) IU/L Troponin I (<0.017-0.056) ng/mL Total Protein (6.0-8.0) g/dL Albumin (3.2-4.6) g/dL Urine Color Yellow (YELLOW) Urine Appearance Slightly cloudy (CLEAR) Urine pH 7.0 H (5.0-6.5) Ur Specific [place] 1.010 (1.010-1.025) Urine Protein 30 H (NEGATIVE) mg/dL Urine Glucose (UA) Normal (NORMAL) mg/dL Urine Ketones Negative (NEGATIVE) mg/dL Urine Occult Blood Moderate H (NEGATIVE) Urine Nitrite Negative (NEGATIVE) Urine Bilirubin Negative (NEGATIVE) Urine Urobilinogen Normal (NEGATIVE) mg/dL Ur Leukocyte Esterase Moderate H (NEGATIVE) Urine RBC 0-5 (0-5) Urine WBC 0-5 (0-5) Ur Squamous Epith Cells Few H (NS,R,O) Urine Bacteria Moderate H (NS) Departure - Departure Time of Disposition: 13:49 Disposition: Home, Self-Care 01 Condition: Good Clinical Impression: Nephrolithiasis, Diverticulosis, Hiatal hernia, Elevated d-dimer, Chronic renal disease Gall stone Qualifiers: Cholecystitis presence: without cholecystitis - Discharge Information Referrals: [facility] [Outside] - 02/04/19 10:00 am ([place] ) Solo Gtz MD [Primary Care Provider] - Forms: ED Department Discharge Additional Instructions: Please f/u with your PMD. Please get a limited US of your Abdomen to R/O Gall stones at 10 am this Monday. Please increase water intake, please come back if your symptoms get worse acutely - My Orders Last 24 Hours: My Active Orders 02/03/19 11:35 EKG Documentation Completion [RC] ASDIRECTED EKG 12 Lead [EK] Routine 02/03/19 12:33 CULTURE URINE [RM] Stat 02/03/19 12:57 Abdomen Pelvis wo Cont [CT] Stat - Assessment/Plan Last 24 Hours: My Active Orders 02/03/19 11:35 EKG Documentation Completion [RC] ASDIRECTED EKG 12 Lead [EK] Routine 02/03/19 12:33 CULTURE URINE [RM] Stat 02/03/19 12:57 Abdomen Pelvis wo Cont [CT] Stat
[2019-02-03 12:15] VITALS: BP 137/63; PULSE 69
== END 2019-02-03 14:00 | disposition home or self-care (01) ==
LOC: FB.ED 11:03
DX: N20.0 Calculus of kidney (principal); K44.9 Diaphragmatic hernia without obstruction or gangrene; K57.90 Diverticulosis of intestine, part unspecified, without perforation or abscess without bleeding; K80.20 Calculus of gallbladder without cholecystitis without obstruction; I10 Essential (primary) hypertension; E78.00 Pure hypercholesterolemia, unspecified; N18.9 Chronic kidney disease, unspecified; R79.1 Abnormal coagulation profile; Z79.899 Other long term (current) drug therapy
CPT/HCPCS: 36415; 74176; 80048; 80076; 81001; 83605; 84484; 85025; 85379; 87086; 93005; 93010; 99284; 99284-25

== ENCOUNTER 2019-02-24 11:00 | Observation (INO) | payer MEDICARE, BC ==
--- NOTE | 2019-02-24 11:05 | EDM.PDOC ---
ED HPI GENERAL MEDICAL PROBLEM - General Stated Complaint: SOB, PAIN IN LEFT ARM Time Seen by Provider: 02/24/19 11:03 Source of Information: Reports: Patient History Limitations: Reports: No Limitations - History of Present Illness INITIAL COMMENTS - FREE TEXT/NARRATIVE: 78-year-old female with onset of left shoulder, left arm and left chest pain at approximately 10:30 AM today while she was sitting in orthodox. She reports the pain is a sharp pain and was a 10/10 at its worst. It is currently a 7/10 at present and improving. It was also associated with some shortness of breath. She felt that the pain was somewhat worse with breathing but there was no pain with movement of her arm or with palpation of her left arm or shoulder. No nausea or vomiting. No antecedent symptoms. She felt completely well this morning. No cough or cold type symptoms prior to this. No leg swelling noted the patient although the daughter reports some chronic swelling in her legs off and on. The patient does have Alzheimer's dementia and is a somewhat poor historian but she is able to scribe her pain and her symptoms quite well this morning. She presents with her family via private vehicle. There are no other associated signs or symptoms. There are no other modifying factors. Onset: Today (10:30 AM) Duration: Improving Location: Reports: Chest, Upper Extremity, Left Quality: Reports: Sharp Severity: Severe Improves with: Reports: None Worsens with: Reports: Breathing Context: Reports: Other (As above) Associated Symptoms: Reports: Chest Pain, Shortness of Breath Treatments [employer]ER: Reports: Other (see below) (Nothing) - Related Data Allergies Allergy/AdvReac Type Severity Reaction Status Date / Time No Known Allergies Allergy Verified 02/24/19 11:18 Home Meds: Home Meds Lovastatin 40 mg PO BEDTIME 11/04/14 [History] Allopurinol [Zyloprim] 100 mg PO DAILY 08/18/16 [History] Donepezil HCl 10 mg PO BEDTIME 08/18/16 [History] Memantine HCl [Namenda] 10 mg PO BEDTIME 08/18/16 [History] Cholecalciferol (Vitamin D3) [Vitamin D3] 2,000 unit PO BEDTIME 08/10/17 [ History] Calcifediol [Rayaldee] 30 mcg PO BEDTIME 02/03/19 [History] Ferrous Sulfate 324 mg PO DAILY 02/03/19 [History] Furosemide 20 mg PO DAILY 02/03/19 [History] Pilocarpine [Pilocar 1% Ophth Soln] 02/03/19 [History] Potassium Chloride [Klor-Con M20] 20 meq PO DAILY 02/03/19 [History] Past Medical History HEENT History: Reports: Cataract, Glaucoma, Impaired Vision Cardiovascular History: Reports: Blood Clots/VTE/DVT (DVT and suspected PE in 2018. She is no longer chronically anticoagulated.), High Cholesterol, Hypertension, SOB on Exertion Gastrointestinal History: Reports: GERD Genitourinary History: Reports: Chronic Renal Insuffiency, Renal Disease Other Genitourinary History: KIDNEY DYSFUNCTION D/T TOXIEMIA Musculoskeletal History: Reports: Back Pain, Chronic Neurological History: Reports: Alzheimers Disease Oncologic (Cancer) History: Reports: Other (See Below) Other Oncologic History: skin cancer - Infectious Disease History Infectious Disease History: Reports: Mumps - Past Surgical History HEENT Surgical History: Reports: Cataract Surgery, Oral Surgery Female Surgical History: Reports: Hysterectomy Neurological Surgical History: Reports: Lumbar Spine Musculoskeletal Surgical History: Reports: Hip Replacement Social & Family History - Family History Family Medical History: Noncontributory - Tobacco Use Smoking Status *Q: Never Smoker - Caffeine Use Caffeine Use: Reports: None - Alcohol Use Alcohol Use History: No - Living Situation & Occupation Living situation: Reports: Occupation: Retired Social History Comment: She is here with her daughter and her son. She lives independently. ED ROS GENERAL - Review of Systems Review Of Systems: See Below Constitutional: Reports: No Symptoms HEENT: Reports: No Symptoms Respiratory: Reports: Shortness of Breath Cardiovascular: Reports: Chest Pain Endocrine: Reports: No Symptoms GI/Abdominal: Reports: No Symptoms : Reports: No Symptoms Musculoskeletal: Reports: Arm Pain (Left arm and shoulder pain) Skin: Reports: No Symptoms Neurological: Reports: No Symptoms Hematologic/Lymphatic: Reports: No Symptoms Immunologic: Reports: No Symptoms ED EXAM, GENERAL - Physical Exam Exam: See Below Exam Limited By: No Limitations General Appearance: Alert, WD/WN, Moderate Distress Eye Exam: Bilateral Eye: EOMI, Normal Inspection, PERRL Ears: Normal External Exam, Hearing Grossly Normal Ear Exam: Bilateral Ear: Auricle Normal Nose: Normal Inspection, Normal Mucosa, No Blood Throat/Mouth: Normal Inspection, Normal Oropharynx, Normal Voice, No Airway Compromise Head: Atraumatic, Normocephalic Neck: Normal Inspection, Supple, Non-Tender, Full Range of Motion Respiratory/Chest: Lungs Clear, Normal Breath Sounds, No Accessory Muscle Use, Chest Non-Tender, Other (Somewhat hyperventilating) Cardiovascular: Normal Peripheral Pulses, Regular Rate, Rhythm, No JVD, No Murmur Peripheral Pulses: 2+: Radial (L), Radial (R), Dorsalis Pedis (L), Dorsalis Pedis (R) GI/Abdominal: Normal Bowel Sounds, Soft, Non-Tender, No Mass Back Exam: Normal Inspection Extremities: Normal Inspection, Normal Range of Motion, Non-Tender, No Pedal Edema, Normal Capillary Refill Neurological: Alert, Oriented, CN II-XII Intact, Normal Cognition, No Motor/ Sensory Deficits Skin Exam: Warm, Dry, Intact, Normal Color, No Rash EKG INTERPRETATION EKG Date: 02/24/19 Time: 11:04 Rhythm: NSR Rate (Beats/Min): 62 [place]: LAD-Left [place] Deviation QRS: Normal ST-T: Normal QT: Prolonged Comparison: No Change (From EKG performed on 02/01/2019.) Course - Orders/Labs/Meds Orders: Active Orders 24 hr Category Date Time Status Admission Status [Patient Status] [ADT] Routine ADT 02/24/19 13:39 Ordered Cardiac Monitoring [RC] .As Directed Care 02/24/19 13:39 Ordered EKG Documentation Completion [RC] ASDIRECTED Care 02/24/19 11:19 Active Chest 1V Frontal [CR] Stat Exams 02/24/19 11:34 Taken TROPONIN I [CHEM] Stat Lab 02/24/19 14:15 Ordered Nitroglycerin [Nitrostat] Med 02/24/19 11:20 Active 0.4 mg SL Q5M PRN Sodium Chloride 0.9% [Normal Saline] 1,000 ml Med 02/24/19 11:30 Active IV ASDIRECTED Sodium Chloride 0.9% [Saline Flush] Med 02/24/19 11:18 Active 10 ml FLUSH ASDIRECTED PRN Peripheral IV Insertion Adult [OM.PC] Routine Oth 02/24/19 11:18 Ordered EKG 12 Lead [EK] Routine Ther 02/24/19 11:18 Ordered Medication Orders Sodium Chloride (Normal Saline) 1,000 mls @ 0 mls/hr IV ASDIRECTED LINUS Stop: 02/28/19 11:20 Nitroglycerin (Nitrostat) 0.4 mg SL Q5M PRN PRN Reason: Chest Pain Sodium Chloride (Saline Flush) 10 ml FLUSH ASDIRECTED PRN PRN Reason: Keep Vein Open Labs: Laboratory Tests 02/24/19 02/24/19 02/24/19 Range/Units 11:15 11:15 11:15 WBC 7.3 (4.5-12.0) X10-3/uL RBC 4.65 (3.23-5.20) x10(6)uL Hgb 14.2 (11.5-15.5) g/dL Hct 42.6 (30.0-51.3) % MCV 91.7 (80-96) fL MCH 30.5 (27.7-33.6) pg MCHC 33.3 (32.2-35.4) g/dL RDW 13.1 (11.5-15.5) % Plt Count 217 (125-369) X10(3)uL MPV 8.0 (7.4-10.4) fL Neut % (Auto) 69.0 (46-82) % Lymph % (Auto) 18.1 (13-37) % [place] % (Auto) 10.4 (4-12) % Eos % (Auto) 2 (1.0-5.0) % Baso % (Auto) 1 (0-2) % Neut # (Auto) 5.1 (1.6-8.3) # Lymph # (Auto) 1.3 (0.6-5.0) # [place] # (Auto) 0.8 (0.0-1.3) # Eos # (Auto) 0.1 (0.0-0.8) # Baso # (Auto) 0.0 (0.0-0.2) # PT 9.9 (8.7-11.1) INR 1.02 (0.89-1.13) APTT 23.0 L (24.4-33.2) SECONDS D-Dimer, Quantitative (0.0-0.59) mg/LFEU Sodium 140 (135-145) mmol/L Potassium 4.0 (3.5-5.3) mmol/L Chloride 102 (100-110) mmol/L Carbon Dioxide 25 (21-32) mmol/L BUN 20 H (7-18) mg/dL Creatinine 1.9 H (0.55-1.02) mg/dL Est Cr Clr Drug Dosing TNP Estimated GFR (MDRD) 26 L (>60) BUN/Creatinine Ratio 10.5 (9-20) Glucose 120 H (80-116) mg/dL Calcium 9.9 (8.6-10.2) mg/dL Total Bilirubin 0.8 (0.1-1.3) mg/dL AST 23 D (5-25) IU/L ALT 26 (12-36) U/L Alkaline Phosphatase 104 (56-112) IU/L Troponin I (<0.017-0.056) ng/mL Total Protein 7.7 (6.0-8.0) g/dL Albumin 4.0 (3.2-4.6) g/dL Globulin 3.7 g/dL Albumin/Globulin Ratio 1.1 02/24/19 02/24/19 Range/Units 11:15 11:15 WBC (4.5-12.0) X10-3/uL RBC (3.23-5.20) x10(6)uL Hgb (11.5-15.5) g/dL Hct (30.0-51.3) % MCV (80-96) fL MCH (27.7-33.6) pg MCHC (32.2-35.4) g/dL RDW (11.5-15.5) % Plt Count (125-369) X10(3)uL MPV (7.4-10.4) fL Neut % (Auto) (46-82) % Lymph % (Auto) (13-37) % [place] % (Auto) (4-12) % Eos % (Auto) (1.0-5.0) % Baso % (Auto) (0-2) % Neut # (Auto) (1.6-8.3) # Lymph # (Auto) (0.6-5.0) # [place] # (Auto) (0.0-1.3) # Eos # (Auto) (0.0-0.8) # Baso # (Auto) (0.0-0.2) # PT (8.7-11.1) INR (0.89-1.13) APTT (24.4-33.2) SECONDS D-Dimer, Quantitative 0.81 H (0.0-0.59) mg/LFEU Sodium (135-145) mmol/L Potassium (3.5-5.3) mmol/L Chloride (100-110) mmol/L Carbon Dioxide (21-32) mmol/L BUN (7-18) mg/dL Creatinine (0.55-1.02) mg/dL Est Cr Clr Drug Dosing Estimated GFR (MDRD) (>60) BUN/Creatinine Ratio (9-20) Glucose (80-116) mg/dL Calcium (8.6-10.2) mg/dL Total Bilirubin (0.1-1.3) mg/dL AST (5-25) IU/L ALT (12-36) U/L Alkaline Phosphatase (56-112) IU/L Troponin I < 0.017 L (<0.017-0.056) ng/mL Total Protein (6.0-8.0) g/dL Albumin (3.2-4.6) g/dL Globulin g/dL Albumin/Globulin Ratio Meds: Medications Generic Name Dose Route Start Last Admin Trade Name Freq PRN Reason Stop Dose Admin Sodium Chloride 1,000 mls @ 0 mls/hr 02/24/19 11:30 Normal Saline IV 02/28/19 11:20 ASDIRECTED LINUS KVO Nitroglycerin 0.4 mg 02/24/19 11:20 Nitrostat SL Q5M PRN Chest Pain Sodium Chloride 10 ml 02/24/19 11:18 Saline Flush FLUSH ASDIRECTED PRN Keep Vein Open Discontinued Medications Generic Name Dose Route Start Last Admin Trade Name Freq PRN Reason Stop Dose Admin Aspirin 324 mg 02/24/19 11:20 Aspirin PO 02/24/19 11:21 ONETIME ONE - Re-Assessments/Exams Free Text/Narrative Re-Assessment/Exam: 02/24/19 11:37: Patient received the aspirin. Chest pain and left shoulder and arm pain had completely resolved after this and she did not receive any nitroglycerin. 02/24/19 13:10: Patient remains chest pain and arm pain-free. She states she feels completely normal. Her blood pressure is 150/80. Her pulse rate is in the 50s. Her O2 saturation is 99% on room air. Her blood tests are reassuring. The d -dimer was 0.81 which is minimally above cut off and with her normal pulse rate and normal O2 saturation I think the chances of this being a significant pulmonary embolus is low. I discussed various options with the patient and her family in regard to rechecking for possible heart related issue. I recommended at least rechecking her troponin and a 3 hour level. Another option would be to admit the patient for repeat troponins over the next 12-18 hours. The patient and family would choose option 2 for admission as chest pain rule out MN, observation. 02/24/19 13:25: I discussed the patient's case with Dr. Shrestha and she is in agreement with the plans for admission to observation/telemetry for serial troponins and rule out MN. Departure - Departure Time of Disposition: 13:40 Disposition: Refer to Observation Condition: Fair (Stable) Clinical Impression: Chest pain Qualifiers: Chest pain type: unspecified Qualified Code(s): R07.9 - Chest pain, unspecified Referrals: Solo Gtz MD [Primary Care Provider] - - My Orders Last 24 Hours: My Active Orders 02/24/19 11:18 Sodium Chloride 0.9% [Saline Flush] 10 ml FLUSH ASDIRECTED PRN Peripheral IV Insertion Adult [OM.PC] Routine EKG 12 Lead [EK] Routine 02/24/19 11:19 EKG Documentation Completion [RC] ASDIRECTED 02/24/19 11:20 Nitroglycerin [Nitrostat] 0.4 mg SL Q5M PRN 02/24/19 11:30 Sodium Chloride 0.9% [Normal Saline] 1,000 ml IV ASDIRECTED 02/24/19 11:34 Chest 1V Frontal [CR] Stat 02/24/19 13:39 Admission Status [Patient Status] [ADT] Routine Cardiac Monitoring [RC] .As Directed 02/24/19 14:15 TROPONIN I [CHEM] Stat - Assessment/Plan Last 24 Hours: My Active Orders 02/24/19 11:18 Sodium Chloride 0.9% [Saline Flush] 10 ml FLUSH ASDIRECTED PRN Peripheral IV Insertion Adult [OM.PC] Routine EKG 12 Lead [EK] Routine 02/24/19 11:19 EKG Documentation Completion [RC] ASDIRECTED 02/24/19 11:20 Nitroglycerin [Nitrostat] 0.4 mg SL Q5M PRN 02/24/19 11:30 Sodium Chloride 0.9% [Normal Saline] 1,000 ml IV ASDIRECTED 02/24/19 11:34 Chest 1V Frontal [CR] Stat 02/24/19 13:39 Admission Status [Patient Status] [ADT] Routine Cardiac Monitoring [RC] .As Directed 02/24/19 14:15 TROPONIN I [CHEM] Stat
[2019-02-24] MEDS ORDERED: Sodium Chloride 0.9% 10 ML Syringe FLUSH PRN (11:18)
[2019-02-24] MEDS ORDERED: Nitroglycerin 0.4 MG Tab.SL SL PRN (11:20)
[2019-02-24] MEDS ORDERED: Aspirin 81 MG Tab.Chew PO ONE (11:20)
[2019-02-24] MEDS ORDERED: Sodium Chloride 0.9% 1,000 ML IV SCH (11:30)
--- NOTE | 2019-02-24 15:58 | PCM.HP.2 ---
H&P History of Present Illness - General Date of Service: 02/24/19 Admit Problem/Dx: Admission Diagnosis/Problem Admission Diagnosis/Problem Chest pain Source of Information: Patient, Family, Provider History Limitations: Reports: Altered Mental Status (Dementia) - History of Present Illness Initial Comments - Free Text/Narative: Patient is a 78 yr old female that presented to ER this morning after 45 minutes of central chest pain during scientology, radiated to left shoulder/arm, short of breath but no diaphoresis, jaw pain, nausea or vomiting. She had negative Troponin in ER with no EKG changes compared with previous. No history of heart problems. She does have hypertension and dementia. Her family is present during exam, she asked a few times why she was here but was able to tell me about the episode in scientology, said she kept patting her chest in the middle so she thinks that's the location. - Related Data Allergies/Adverse Reactions: Allergies Allergy/AdvReac Type Severity Reaction Status Date / Time No Known Allergies Allergy Verified 02/24/19 14:38 Home Medications: Home Meds Lovastatin 40 mg PO BEDTIME 11/04/14 [History] Allopurinol [Zyloprim] 150 mg PO DAILY 08/18/16 [History] Donepezil HCl 10 mg PO BEDTIME 08/18/16 [History] Memantine HCl [Namenda] 10 mg PO 08/18/16 [History] Calcifediol [Rayaldee] 60 mcg PO BEDTIME 02/03/19 [History] Ferrous Sulfate 324 mg PO 1700 02/03/19 [History] Furosemide 20 mg PO 02/03/19 [History] Pilocarpine [Pilocar 1% Ophth Soln] 1 drop EYERT 02/03/19 [History] Acetaminophen [Tylenol Arthritis] 650 mg PO 09 02/24/19 [History] Aspirin [Halfprin] 81 mg PO 02/24/19 [History] Calcium Carbonate [Calcium] 500 mg PO 169902/24/19 [History] Potassium Chloride [Klor-Con M20] 20 meq PO DAILY 02/24/19 [History] Sertraline HCl 25 mg PO 02/24/19 [History] amLODIPine Besylate [Amlodipine Besylate] 10 mg PO 02/24/19 [History] Past Medical History HEENT History: Reports: Cataract, Glaucoma, Impaired Vision Cardiovascular History: Reports: Blood Clots/VTE/DVT (DVT and suspected PE in 2018. 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: Musculoskeletal History: Reports: Back Pain, Chronic Neurological History: Reports: Alzheimers Disease Oncologic (Cancer) History: Reports: Other (See Below) Other Oncologic History: skin cancer - Infectious Disease History Infectious Disease History: Reports: Mumps - Past Surgical History HEENT Surgical History: Reports: Cataract Surgery, Oral Surgery Female Surgical History: Reports: Hysterectomy Neurological Surgical History: Reports: Lumbar Spine Musculoskeletal Surgical History: Reports: Hip Replacement Social & Family History - Family History Family Medical History: Noncontributory - Tobacco Use Smoking Status *Q: Never Smoker - Caffeine Use Caffeine Use: Reports: None - Living Situation & Occupation Living situation: Reports: Occupation: Retired H&P Review of Systems - Review of Systems: Review Of Systems: See Below General: Reports: No Symptoms HEENT: Reports: No Symptoms Pulmonary: Reports: Shortness of Breath. Denies: Cough Cardiovascular: Reports: Chest Pain. Denies: Edema Gastrointestinal: Reports: No Symptoms Genitourinary: Reports: No Symptoms Musculoskeletal: Reports: Shoulder Pain, Arm Pain. Denies: Neck Pain, Back Pain , Hand Pain Skin: Reports: No Symptoms Psychiatric: Reports: Confusion Exam - Exam Exam: See Below - Vital Signs Vital Signs: Last Vital Signs Temp 36.6 C 02/24/19 11:00 Pulse Resp 13 02/24/19 11:30 BP 151/64 H 02/24/19 11:30 Pulse Ox 100 02/24/19 11:30 - Exam General: Alert, Oriented (person, pleasantly confused, asks "don't know why I'm here"), Cooperative HEENT: PERRLA, EOMI, Hearing Intact, Mucosa Moist & [place] Neck: Supple, Trachea Midline, +2 Carotid Pulse wo Bruit. No: Lymphadenopathy Lungs: Clear to Auscultation, Normal Respiratory Effort Cardiovascular: Regular Rate, Regular Rhythm GI/Abdominal Exam: Normal Bowel Sounds, Soft, Non-Tender, No Organomegaly, No Distention (Female) Exam: Deferred Rectal (Female) Exam: Deferred Extremities: Normal Inspection, Pedal Edema (1+) Peripheral Pulses: 2+: Radial (L), Radial (R), Posterior Tibial (L), Posterior Tibial (R), Dorsalis Pedis (L), Dorsalis Pedis (R) Skin: Warm, Dry, Intact Neurological: Cranial Nerves Intact Neuro Extensive - Mental Status: Alert, Normal Mood/Affect, Disorientation to Time, Memory Loss-Recent Events (oriented to person, place) - Patient Data Lab Results Last 24 hrs: Laboratory Results - last 24 hr 02/24/19 02/24/19 02/24/19 Range/Units 11:15 11:15 11:15 WBC 7.3 (4.5-12.0) X10-3/uL RBC 4.65 (3.23-5.20) x10(6)uL Hgb 14.2 (11.5-15.5) g/dL Hct 42.6 (30.0-51.3) % MCV 91.7 (80-96) fL MCH 30.5 (27.7-33.6) pg MCHC 33.3 (32.2-35.4) g/dL RDW 13.1 (11.5-15.5) % Plt Count 217 (125-369) X10(3)uL MPV 8.0 (7.4-10.4) fL Neut % (Auto) 69.0 (46-82) % Lymph % (Auto) 18.1 (13-37) % [place] % (Auto) 10.4 (4-12) % Eos % (Auto) 2 (1.0-5.0) % Baso % (Auto) 1 (0-2) % Neut # (Auto) 5.1 (1.6-8.3) # Lymph # (Auto) 1.3 (0.6-5.0) # [place] # (Auto) 0.8 (0.0-1.3) # Eos # (Auto) 0.1 (0.0-0.8) # Baso # (Auto) 0.0 (0.0-0.2) # PT 9.9 (8.7-11.1) INR 1.02 (0.89-1.13) APTT 23.0 L (24.4-33.2) SECONDS D-Dimer, Quantitative (0.0-0.59) mg/LFEU Sodium 140 (135-145) mmol/L Potassium 4.0 (3.5-5.3) mmol/L Chloride 102 (100-110) mmol/L Carbon Dioxide 25 (21-32) mmol/L BUN 20 H (7-18) mg/dL Creatinine 1.9 H (0.55-1.02) mg/dL Est Cr Clr Drug Dosing TNP Estimated GFR (MDRD) 26 L (>60) BUN/Creatinine Ratio 10.5 (9-20) Glucose 120 H (80-116) mg/dL Calcium 9.9 (8.6-10.2) mg/dL Total Bilirubin 0.8 (0.1-1.3) mg/dL AST 23 D (5-25) IU/L ALT 26 (12-36) U/L Alkaline Phosphatase 104 (56-112) IU/L Troponin I (<0.017-0.056) ng/mL Total Protein 7.7 (6.0-8.0) g/dL Albumin 4.0 (3.2-4.6) g/dL Globulin 3.7 g/dL Albumin/Globulin Ratio 1.1 02/24/19 02/24/19 Range/Units 11:15 11:15 WBC (4.5-12.0) X10-3/uL RBC (3.23-5.20) x10(6)uL Hgb (11.5-15.5) g/dL Hct (30.0-51.3) % MCV (80-96) fL MCH (27.7-33.6) pg MCHC (32.2-35.4) g/dL RDW (11.5-15.5) % Plt Count (125-369) X10(3)uL MPV (7.4-10.4) fL Neut % (Auto) (46-82) % Lymph % (Auto) (13-37) % [place] % (Auto) (4-12) % Eos % (Auto) (1.0-5.0) % Baso % (Auto) (0-2) % Neut # (Auto) (1.6-8.3) # Lymph # (Auto) (0.6-5.0) # [place] # (Auto) (0.0-1.3) # Eos # (Auto) (0.0-0.8) # Baso # (Auto) (0.0-0.2) # PT (8.7-11.1) INR (0.89-1.13) APTT (24.4-33.2) SECONDS D-Dimer, Quantitative 0.81 H (0.0-0.59) mg/LFEU Sodium (135-145) mmol/L Potassium (3.5-5.3) mmol/L Chloride (100-110) mmol/L Carbon Dioxide (21-32) mmol/L BUN (7-18) mg/dL Creatinine (0.55-1.02) mg/dL Est Cr Clr Drug Dosing Estimated GFR (MDRD) (>60) BUN/Creatinine Ratio (9-20) Glucose (80-116) mg/dL Calcium (8.6-10.2) mg/dL Total Bilirubin (0.1-1.3) mg/dL AST (5-25) IU/L ALT (12-36) U/L Alkaline Phosphatase (56-112) IU/L Troponin I < 0.017 L (<0.017-0.056) ng/mL Total Protein (6.0-8.0) g/dL Albumin (3.2-4.6) g/dL Globulin g/dL Albumin/Globulin Ratio Result Diagrams: 02/24/19 11:15 02/24/19 11:15 EKG INTERPRETATION EKG Date: 02/24/19 Time: 11:04 Rhythm: A-Fib Rate (Beats/Min): 62 [place]: LAD-Left [place] Deviation P-Wave: Variable (present in lateral leads) QRS: Normal ST-T: Normal QT: Normal (486) Comparison: No Change EKG Interpretation Comments: Atrial fibrillation, no Q waves, no ST-T wave changes. No ischemia. No change from EKG 02/03/19 - Problem List (1) Chest pain SNOMED Code(s): 32863526 ICD Code: R07.9 - CHEST PAIN, UNSPECIFIED Status: Acute Current Visit: Yes Qualifiers: Chest pain type: unspecified Qualified Code(s): R07.9 - Chest pain, unspecified (2) CKD (chronic kidney disease) SNOMED Code(s): 866997441 ICD Code: N18.9 - CHRONIC KIDNEY DISEASE, UNSPECIFIED Status: Acute Current Visit: No (3) DVT (deep venous thrombosis) SNOMED Code(s): 806117768 ICD Code: I82.409 - ACUTE EMBOLISM AND THOMBOS UNSP DEEP VN UNSP LOWER EXTREMITY Status: Chronic Current Visit: No Problem Details: history of (4) Dementia SNOMED Code(s): 55610812 ICD Code: F03.90 - UNSPECIFIED DEMENTIA WITHOUT BEHAVIORAL DISTURBANCE Status: Acute Current Visit: Yes (5) HTN (hypertension) SNOMED Code(s): 32056685 ICD Code: I10 - ESSENTIAL (PRIMARY) HYPERTENSION Status: Acute Current Visit: No (6) Hiatal hernia SNOMED Code(s): 77593885 ICD Code: K44.9 - DIAPHRAGMATIC HERNIA WITHOUT OBSTRUCTION OR GANGRENE Status: Acute Current Visit: No (7) Hyperparathyroidism SNOMED Code(s): 31772983 ICD Code: E21.3 - HYPERPARATHYROIDISM, UNSPECIFIED Status: Acute Current Visit: No (8) S/P total hip arthroplasty SNOMED Code(s): 102295413367, 894749471473 ICD Code: Z96.649 - PRESENCE OF UNSPECIFIED ARTIFICIAL HIP JOINT Status: Acute Current Visit: No Qualifiers: Laterality: right Qualified Code(s): Z96.641 - Presence of right artificial hip joint (9) Vitamin D deficiency SNOMED Code(s): 14459606 ICD Code: E55.9 - VITAMIN D DEFICIENCY, UNSPECIFIED Status: Acute Current Visit: No Problem List Initiated/Reviewed/Updated: Yes Orders Last 24hrs: Active Orders 24 hr Category Date Time Status Admission Status [Patient Status] [ADT] Routine ADT 02/24/19 13:39 Active Cardiac Education [RC] Click to Edit Care 02/24/19 15:34 Active Cardiac Monitoring [RC] .As Directed Care 02/24/19 13:39 Active EKG Documentation Completion [RC] ASDIRECTED Care 02/24/19 11:19 Active EKG Documentation Completion [RC] ASDIRECTED Care 02/24/19 15:49 Active EKG Documentation Completion [RC] ASDIRECTED Care 02/24/19 18:00 Active May Shower [RC] ASDIRECTED Care 02/24/19 15:34 Active Oxygen Therapy [RC] PRN Care 02/24/19 15:34 Active Up With Assistance [RC] ASDIRECTED Care 02/24/19 15:34 Active VTE/DVT Education [RC] Per Unit Routine Care 02/24/19 15:34 Active Vital Signs [RC] Q4H Care 02/24/19 15:34 Active Heart Healthy Diet [DIET] Diet 02/24/19 Dinner Active Chest 1V Frontal [CR] Stat Exams 02/24/19 11:34 Taken LIPID PANEL [CHEM] Routine Lab 02/25/19 06:00 Ordered TROPONIN I [CHEM] Routine Lab 02/24/19 17:00 Ordered TROPONIN I [CHEM] Routine Lab 02/24/19 23:00 Ordered TROPONIN I [CHEM] Routine Lab 02/25/19 06:00 Ordered Aspirin [Ecotrin] Med 02/25/19 09:00 Active 325 mg PO DAILY Nitroglycerin [Nitrostat] Med 02/24/19 11:20 Active 0.4 mg SL Q5M PRN Sodium Chloride 0.9% [Saline Flush] Med 02/24/19 11:18 Active 10 ml FLUSH ASDIRECTED PRN Peripheral IV Insertion Adult [OM.PC] Routine Oth 02/24/19 11:18 Ordered Resuscitation Status Routine Resus Stat 02/24/19 15:34 Ordered EKG 12 Lead [EK] Routine Ther 02/24/19 11:18 Ordered EKG 12 Lead [EK] Routine Ther 02/24/19 18:00 Ordered EKG 12 Lead [EK] Routine Ther 02/25/19 06:00 Ordered Medication Orders Aspirin (Ecotrin) 325 mg PO DAILY LINUS Nitroglycerin (Nitrostat) 0.4 mg SL Q5M PRN PRN Reason: Chest Pain Sodium Chloride (Saline Flush) 10 ml FLUSH ASDIRECTED PRN PRN Reason: Keep Vein Open Assessment/Plan Comment:: Admit for observation for serial enzymes and EKGs. Aspirin given in ER and nitroglycerin. She is pain free so will do Nitroglycerin SL as needed. Continue home medications. Lipid panel in the morning. Discussed with her son & daughter about doing a stress test, they felt she could do an exercise stress with Dr Ward as she could not do Lexiscan due to her kidney disease. They wish for her to be a full code but only do 1 round of CPR and if not successful then stop. She is oriented to person and place but not time. Son is medical agent on her advance directive. - Mortality Measure Prognosis:: Good
[2019-02-24] MEDS ORDERED: FLU Vacc QS2019-20(6MOS+)/PF 60 MCG/0.5 ML SYRINGE IM ONE (17:00)
[2019-02-24] MEDS ORDERED: FERROUS SULFATE 324 MG PO SCH (18:00)
[2019-02-24] MEDS ORDERED: amLODIPine 10 MG Tab*PT OWN MED PO SCH (18:00)
[2019-02-24] MEDS ORDERED: CALCIUM CARBONATE 500 MG PO SCH (18:00)
[2019-02-24] MEDS ORDERED: Allopurinol 100 MG Tab*PT OWN MED PO SCH (18:00)
[2019-02-24] MEDS ORDERED: SERTRALINE 25 MG PO SCH (18:15)
[2019-02-24] MEDS: MEMANTINE HCL 10 MG PO SCH (18:17)
[2019-02-24] MEDS: PILOCARPINE 1% EYERT SCH (18:18)
[2019-02-24] MEDS ORDERED: LOVASTATIN 40 MG PO SCH (21:00)
[2019-02-24] MEDS ORDERED: DONEPEZIL 10 MG PO SCH (21:00)
[2019-02-25] MEDS ORDERED: Aspirin 81 MG Tab.Chew PO SCH (09:00)
[2019-02-25] MEDS ORDERED: Potassium Chloride 20 MEQ Tab.ER *PTOM PO SCH (09:00)
[2019-02-25] MEDS ORDERED: Aspirin 325 MG Tab.EC PO SCH (09:00)
[2019-02-25] MEDS ORDERED: Furosemide 20 MG Tab *PTOM PO SCH (09:00)
[2019-02-25] MEDS ORDERED: Acetaminophen 650 MG Tab.ER *PTOM PO SCH (09:00)
[2019-02-25] MEDS: MEMANTINE HCL 10 MG PO SCH (10:05)
[2019-02-25] MEDS: PILOCARPINE 1% EYERT SCH (10:05)
--- NOTE | 2019-02-25 12:07 | PCM.DCSUM1 ---
Discharge Summary - Hospital Course HPI Initial Comments: Patient is a 78 yr old female that presented to ER this morning after 45 minutes of central chest pain during yazidism, radiated to left shoulder/arm, short of breath but no diaphoresis, jaw pain, nausea or vomiting. She had negative Troponin in ER with no EKG changes compared with previous. No history of heart problems. She does have hypertension and dementia. Her family is present during exam, she asked a few times why she was here but was able to tell me about the episode in yazidism, said she kept patting her chest in the middle so she thinks that's the location. Diagnosis: Stroke: No - Discharge Data Discharge Date: 02/25/19 Discharge Disposition: Home, Self-Care 01 Condition: Good - Referral to Home Health Primary Care Physician: Solo Gtz MD - Discharge Diagnosis/Problem(s) (1) Chest pain SNOMED Code(s): 03232559 ICD Code: R07.9 - CHEST PAIN, UNSPECIFIED Status: Resolved Current Visit : Yes Qualifiers: Chest pain type: unspecified Qualified Code(s): R07.9 - Chest pain, unspecified (2) CKD (chronic kidney disease) SNOMED Code(s): 865097760 ICD Code: N18.9 - CHRONIC KIDNEY DISEASE, UNSPECIFIED Status: Chronic Current Visit: No (3) DVT (deep venous thrombosis) SNOMED Code(s): 601710354 ICD Code: I82.409 - ACUTE EMBOLISM AND THOMBOS UNSP DEEP VN UNSP LOWER EXTREMITY Status: Chronic Current Visit: No Problem Details: history of (4) Dementia SNOMED Code(s): 80908892 ICD Code: F03.90 - UNSPECIFIED DEMENTIA WITHOUT BEHAVIORAL DISTURBANCE Status: Chronic Current Visit: Yes (5) HTN (hypertension) SNOMED Code(s): 37986551 ICD Code: I10 - ESSENTIAL (PRIMARY) HYPERTENSION Status: Chronic Current Visit: No (6) Hiatal hernia SNOMED Code(s): 93074130 ICD Code: K44.9 - DIAPHRAGMATIC HERNIA WITHOUT OBSTRUCTION OR GANGRENE Status: Chronic Current Visit: No (7) Hyperparathyroidism SNOMED Code(s): 65484552 ICD Code: E21.3 - HYPERPARATHYROIDISM, UNSPECIFIED Status: Chronic Current Visit: No (8) S/P total hip arthroplasty SNOMED Code(s): 782576769363, 457288534234 ICD Code: Z96.649 - PRESENCE OF UNSPECIFIED ARTIFICIAL HIP JOINT Status: Chronic Current Visit: No Qualifiers: Laterality: right Qualified Code(s): Z96.641 - Presence of right artificial hip joint (9) Vitamin D deficiency SNOMED Code(s): 92007612 ICD Code: E55.9 - VITAMIN D DEFICIENCY, UNSPECIFIED Status: Chronic Current Visit: No - Patient Summary/Data Hospital Course: Patient was admitted to med floor with telemetry: had some bradycardia overnight while sleeping but asymptomatic. No further chest pain during hospital stay. She had 4 troponin levels all less than 0.017. EKG initially unchanged from 02/03/19, this morning EKG showed some T wave flattened in anterior leads and V6. Family does not want angiogram done due to her kidney function. She had labs today for her Nephrology appt next . Discussed findings with family and whether they would do stress test. They would like to meet with Pesticide Use Medical Coordinator first before they do the stress test as if she wouldn't be a candidate for angiogram, then they feel the stress test would be a waste. Spoke with two of her daughters. - Patient Instructions Diet: Regular Diet as Tolerated Activity: As Tolerated Showering/Bathing: May Shower Notify Provider of: Increased Pain Other/Special Instructions: Follow up with Nephrology as previous scheduled. Copy of labs will be faxed to [facility]. Follow up with Dr Gtz in 1-2 weeks. - Discharge Plan *PRESCRIPTION DRUG MONITORING PROGRAM REVIEWED*: No *COPY OF PRESCRIPTION DRUG MONITORING REPORT IN PATIENT LADAN: No Home Medications: Home Meds Lovastatin 40 mg PO BEDTIME 11/04/14 [History] Allopurinol [Zyloprim] 150 mg PO DAILY 08/18/16 [History] Donepezil HCl 10 mg PO BEDTIME 08/18/16 [History] Memantine HCl [Namenda] 10 mg PO 08/18/16 [History] Calcifediol [Rayaldee] 60 mcg PO BEDTIME 02/03/19 [History] Ferrous Sulfate 324 mg PO 1700 02/03/19 [History] Furosemide 20 mg PO 09 02/03/19 [History] Pilocarpine [Pilocar 1% Ophth Soln] 1 drop EYERT 02/03/19 [History] Acetaminophen [Tylenol Arthritis] 650 mg PO 09 02/24/19 [History] Aspirin [Halfprin] 81 mg PO 17 02/24/19 [History] Calcium Carbonate [Calcium] 500 mg PO 1700 02/24/19 [History] Potassium Chloride [Klor-Con M20] 20 meq PO DAILY 02/24/19 [History] Sertraline HCl 25 mg PO 17 02/24/19 [History] amLODIPine Besylate [Amlodipine Besylate] 10 mg PO 17 02/24/19 [History] Oxygen Therapy Mode: Room Air Forms: ED Department Discharge Referrals: Solo Gtz MD [Primary Care Provider] - - Discharge Summary/Plan Comment DC Time >30 min.: No - Patient Data Vitals - Most Recent: Last Vital Signs Temp 36.4 C 02/25/19 04:00 Pulse 59 L 02/25/19 04:00 Resp 17 02/25/19 04:00 BP 146/79 H 02/25/19 04:00 Pulse Ox 97 02/25/19 04:00 Weight - Most Recent: 75.432 kg Lab Results - Last 24 hrs: Laboratory Results - last 24 hr 02/24/19 02/24/19 02/25/19 Range/Units 17:00 23:12 06:40 WBC (4.5-12.0) X10-3/uL RBC (3.23-5.20) x10(6)uL Hgb (11.5-15.5) g/dL Hct (30.0-51.3) % MCV (80-96) fL MCH (27.7-33.6) pg MCHC (32.2-35.4) g/dL RDW (11.5-15.5) % Plt Count (125-369) X10(3)uL MPV (7.4-10.4) fL Neut % (Auto) (46-82) % Lymph % (Auto) (13-37) % [place] % (Auto) (4-12) % Eos % (Auto) (1.0-5.0) % Baso % (Auto) (0-2) % Neut # (Auto) (1.6-8.3) # Lymph # (Auto) (0.6-5.0) # [place] # (Auto) (0.0-1.3) # Eos # (Auto) (0.0-0.8) # Baso # (Auto) (0.0-0.2) # Sodium 144 (135-145) mmol/L Potassium 3.7 (3.5-5.3) mmol/L Chloride 106 (100-110) mmol/L Carbon Dioxide 30 (21-32) mmol/L BUN 23 H (7-18) mg/dL Creatinine 1.5 H (0.55-1.02) mg/dL Est Cr Clr Drug Dosing 28.94 mL/min Estimated GFR (MDRD) 34 L (>60) BUN/Creatinine Ratio 15.3 (9-20) Glucose 107 (80-116) mg/dL Calcium 9.4 (8.6-10.2) mg/dL Phosphorus 3.4 (2.6-4.6) mg/dL Troponin I < 0.017 L < 0.017 L (<0.017-0.056) ng/mL Albumin 3.4 (3.2-4.6) g/dL Triglycerides 123 (15-150) mg/dL Cholesterol 175 (50-200) mg/dL LDL Cholesterol Direct 99 (60-130) mg/dL HDL Cholesterol 55 (40-75) mg/dL Cholesterol/HDL Ratio 3.2 (0-5) Urine Color (YELLOW) Urine Appearance (CLEAR) Urine pH (5.0-6.5) Ur Specific [place] (1.010-1.025) Urine Protein (NEGATIVE) mg/dL Urine Glucose (UA) (NORMAL) mg/dL Urine Ketones (NEGATIVE) mg/dL Urine Occult Blood (NEGATIVE) Urine Nitrite (NEGATIVE) Urine Bilirubin (NEGATIVE) Urine Urobilinogen (NEGATIVE) mg/dL Ur Leukocyte Esterase (NEGATIVE) Urine WBC (0-5) Ur Squamous Epith Cells (NS,R,O) Amorphous Sediment Urine Bacteria (NS) Ur Random Creatinine mg/dL U Random Total Protein (<11.9) mg/dL Protein/Creatinin Ratio mg/mg 02/25/19 02/25/19 02/25/19 Range/Units 06:40 06:40 08:55 WBC 6.7 (4.5-12.0) X10-3/uL RBC 4.45 (3.23-5.20) x10(6)uL Hgb 13.9 (11.5-15.5) g/dL Hct 41.3 (30.0-51.3) % MCV 92.8 (80-96) fL MCH 31.2 (27.7-33.6) pg MCHC 33.6 (32.2-35.4) g/dL RDW 13.4 (11.5-15.5) % Plt Count 197 (125-369) X10(3)uL MPV 8.4 (7.4-10.4) fL Neut % (Auto) 66.7 (46-82) % Lymph % (Auto) 18.7 (13-37) % [place] % (Auto) 10.1 (4-12) % Eos % (Auto) 4 (1.0-5.0) % Baso % (Auto) 1 (0-2) % Neut # (Auto) 4.5 (1.6-8.3) # Lymph # (Auto) 1.2 (0.6-5.0) # [place] # (Auto) 0.7 (0.0-1.3) # Eos # (Auto) 0.3 (0.0-0.8) # Baso # (Auto) 0.0 (0.0-0.2) # Sodium (135-145) mmol/L Potassium (3.5-5.3) mmol/L Chloride (100-110) mmol/L Carbon Dioxide (21-32) mmol/L BUN (7-18) mg/dL Creatinine (0.55-1.02) mg/dL Est Cr Clr Drug Dosing mL/min Estimated GFR (MDRD) (>60) BUN/Creatinine Ratio (9-20) Glucose (80-116) mg/dL Calcium (8.6-10.2) mg/dL Phosphorus (2.6-4.6) mg/dL Troponin I < 0.017 L (<0.017-0.056) ng/mL Albumin (3.2-4.6) g/dL Triglycerides (15-150) mg/dL Cholesterol (50-200) mg/dL LDL Cholesterol Direct (60-130) mg/dL HDL Cholesterol (40-75) mg/dL Cholesterol/HDL Ratio (0-5) Urine Color Yellow (YELLOW) Urine Appearance Cloudy (CLEAR) Urine pH 8.0 H (5.0-6.5) Ur Specific [place] 1.010 (1.010-1.025) Urine Protein Negative (NEGATIVE) mg/dL Urine Glucose (UA) Normal (NORMAL) mg/dL Urine Ketones Negative (NEGATIVE) mg/dL Urine Occult Blood Negative (NEGATIVE) Urine Nitrite Negative (NEGATIVE) Urine Bilirubin Negative (NEGATIVE) Urine Urobilinogen Normal (NEGATIVE) mg/dL Ur Leukocyte Esterase Negative (NEGATIVE) Urine WBC 0-5 (0-5) Ur Squamous Epith Cells Few H (NS,R,O) Amorphous Sediment Moderate Urine Bacteria Few H (NS) Ur Random Creatinine mg/dL U Random Total Protein (<11.9) mg/dL Protein/Creatinin Ratio mg/mg 02/25/19 Range/Units 08:55 WBC (4.5-12.0) X10-3/uL RBC (3.23-5.20) x10(6)uL Hgb (11.5-15.5) g/dL Hct (30.0-51.3) % MCV (80-96) fL MCH (27.7-33.6) pg MCHC (32.2-35.4) g/dL RDW (11.5-15.5) % Plt Count (125-369) X10(3)uL MPV (7.4-10.4) fL Neut % (Auto) (46-82) % Lymph % (Auto) (13-37) % [place] % (Auto) (4-12) % Eos % (Auto) (1.0-5.0) % Baso % (Auto) (0-2) % Neut # (Auto) (1.6-8.3) # Lymph # (Auto) (0.6-5.0) # [place] # (Auto) (0.0-1.3) # Eos # (Auto) (0.0-0.8) # Baso # (Auto) (0.0-0.2) # Sodium (135-145) mmol/L Potassium (3.5-5.3) mmol/L Chloride (100-110) mmol/L Carbon Dioxide (21-32) mmol/L BUN (7-18) mg/dL Creatinine (0.55-1.02) mg/dL Est Cr Clr Drug Dosing mL/min Estimated GFR (MDRD) (>60) BUN/Creatinine Ratio (9-20) Glucose (80-116) mg/dL Calcium (8.6-10.2) mg/dL Phosphorus (2.6-4.6) mg/dL Troponin I (<0.017-0.056) ng/mL Albumin (3.2-4.6) g/dL Triglycerides (15-150) mg/dL Cholesterol (50-200) mg/dL LDL Cholesterol Direct (60-130) mg/dL HDL Cholesterol (40-75) mg/dL Cholesterol/HDL Ratio (0-5) Urine Color (YELLOW) Urine Appearance (CLEAR) Urine pH (5.0-6.5) Ur Specific [place] (1.010-1.025) Urine Protein (NEGATIVE) mg/dL Urine Glucose (UA) (NORMAL) mg/dL Urine Ketones (NEGATIVE) mg/dL Urine Occult Blood (NEGATIVE) Urine Nitrite (NEGATIVE) Urine Bilirubin (NEGATIVE) Urine Urobilinogen (NEGATIVE) mg/dL Ur Leukocyte Esterase (NEGATIVE) Urine WBC (0-5) Ur Squamous Epith Cells (NS,R,O) Amorphous Sediment Urine Bacteria (NS) Ur Random Creatinine 54 mg/dL U Random Total Protein 21.8 H (<11.9) mg/dL Protein/Creatinin Ratio 0.40 mg/mg Med Orders - Current: Current Medications Acetaminophen (Tylenol Arthritis Pain) 650 mg PO 09 [facility] Last Admin: 02/25/19 10:06 Dose: 650 mg Allopurinol (Zyloprim) 150 mg PO DAILY@0 [facility] Last Admin: 02/24/19 18:18 Dose: 150 mg Amlodipine Besylate (Norvasc) 10 mg PO DAILY@1699 [facility] Last Admin: 02/24/19 18:17 Dose: 10 mg Aspirin (Ecotrin) 325 mg PO DAILY [facility] Last Admin: 02/25/19 10:04 Dose: 325 mg Aspirin (Halfprin) 81 mg PO DAILY@1699 [facility] Calcium Carbonate/Glycine (Oyster Shell Calcium) 500 mg PO DAILY@1699 [facility] Last Admin: 02/24/19 18:17 Dose: 500 mg Donepezil HCl (Aricept) 10 mg PO BEDTIME [facility] Last Admin: 02/24/19 20:05 Dose: 10 mg Furosemide (Lasix) 20 mg PO 09 [facility] Last Admin: 02/25/19 10:04 Dose: 20 mg Lovastatin (Mevacor) 40 mg PO BEDTIME [facility] Last Admin: 02/24/19 20:06 Dose: 40 mg Nitroglycerin (Nitrostat) 0.4 mg SL Q5M PRN PRN Reason: Chest Pain (Calcifediol [ Rayaldee] 30 Mcg)*Pt Own Med* 0 mcg PO DAILY@1700 [facility] Last Admin: 02/24/19 18:18 Dose: 60 mcg (Ferrous Sulfate [ Ferrous Sulfate] 324 Mg)*Pt Own Med* 324 mg PO DAILY@1700 [facility] Last Admin: 02/24/19 18:17 Dose: 324 mg (Memantine Hcl [ Namenda] 10 Mg)*Pt Own Med* 10 mg PO BID@0900,1700 [facility] Last Admin: 02/25/19 10:05 Dose: 10 mg Pilocarpine HCl (Pilocar 1% Ophth Soln) 0 ml EYERT BID@0900,1700 [facility] Last Admin: 02/25/19 10:05 Dose: 1 drop Potassium Chloride (Klor-Con M20) 20 meq PO DAILY [facility] Last Admin: 02/25/19 10:03 Dose: 20 meq Sertraline HCl (Zoloft) 25 mg PO DAILY@1700 [facility] Last Admin: 02/24/19 18:18 Dose: 25 mg Sodium Chloride (Saline Flush) 10 ml FLUSH ASDIRECTED PRN PRN Reason: Keep Vein Open Last Admin: 02/24/19 11:40 Dose: 10 ml Discontinued Medications Aspirin (Aspirin) 324 mg PO ONETIME ONE Stop: 02/24/19 11:21 Last Admin: 02/24/19 11:47 Dose: 324 mg Aspirin (Aspirin) 81 mg PO DAILY [facility] Sodium Chloride (Normal Saline) 1,000 mls @ 0 mls/hr IV ASDIRECTED [facility] Stop: 02/28/19 11:20 Last Admin: 02/24/19 11:47 Dose: 30 mls/hr Influenza Virus Vaccine (Pharmacy To Dose - Influenza Vaccine) 1 each IM ONETIME ONE Stop: 02/24/19 16:55 Influenza Virus Vaccine (Fluzone Quad [id number] Syringe) 60 mcg IM .ONCE ONE Stop: 02/24/19 17:01 Last Admin: 02/25/19 11:55 Dose: 60 mcg - Exam General: Reports: Alert, Cooperative, No Acute Distress Lungs: Reports: Clear to Auscultation, Normal Respiratory Effort Cardiovascular: Reports: Regular Rate, Regular Rhythm GI/Abdominal Exam: Normal Bowel Sounds, Soft, Non-Tender, No Distention Extremities: No Pedal Edema Skin: Reports: Warm, Dry, Intact EKG INTERPRETATION EKG Date: 02/25/19 Time: 05:52 Rhythm: NSR Rate (Beats/Min): 56 [place]: LAD-Left [place] Deviation (-20) P-Wave: Present QRS: Normal ST-T: Normal QT: Normal Comparison: Change From Previous EKG EKG Interpretation Comments: Normal sinus rhythm, borderline left axis deviation, borderline T wave flattening in anterior & V6 leads. Non-specific T wave changes.
[2019-02-25 12:17] VITALS: BP 140/70; PULSE 66
[2019-02-25] MEDS ORDERED: Aspirin 81 MG Tab.EC*PT OWN MED PO SCH (17:00)
[2019-02-26 08:09] LABS: IRON BIND.CAP.(TIBC) 263 ug/dL (250-450); IRON SATURATION 37 % (15-55); IRON, SERUM 97 ug/dL (27-139); UIBC 166 ug/dL (118-369)
== END 2019-02-25 12:35 | disposition home or self-care (01) ==
LOC: FB.ED 11:00 → FB.MS 13:39 → FB.ED 13:52 → FB.MS 13:52
PROVIDERS: ADMIT Family Medicine; ATTEND Family Medicine
DX: R07.89 Other chest pain (principal); I10 Essential (primary) hypertension; E78.00 Pure hypercholesterolemia, unspecified; K21.9 Gastro-esophageal reflux disease without esophagitis; I12.9 Hypertensive chronic kidney disease with stage 1 through stage 4 chronic kidney disease, or unspecified chronic kidney disease; N18.9 Chronic kidney disease, unspecified; G30.9 Alzheimer's disease, unspecified; F02.80 Dementia in other diseases classified elsewhere, unspecified severity, without behavioral disturbance, psychotic disturbance, mood disturbance, and anxiety; I82.409 Acute embolism and thrombosis of unspecified deep veins of unspecified lower extremity; K44.9 Diaphragmatic hernia without obstruction or gangrene; E21.3 Hyperparathyroidism, unspecified; E55.9 Vitamin D deficiency, unspecified; Z79.899 Other long term (current) drug therapy; Z79.82 Long term (current) use of aspirin; Z96.641 Presence of right artificial hip joint
CPT/HCPCS: 36415; 71045; 80053; 80061; 80069; 81001; 82570; 82728; 83540; 83550; 83970; 84156; 84484; 85025; 85379; 85610; 85730; 90686; 93005; 93010; 96360; 96361; 99285; 99285-25; A9270-GY; G0008; G0378; J7030

== ENCOUNTER 2020-08-24 16:08 | Inpatient (IN) | payer MEDICARE, BC ==
[2020-08-24] MEDS ORDERED: Sodium Chloride 0.9% 1,000 ML IV SCH (17:45)
[2020-08-24] MEDS ORDERED: QUEtiapine 25 MG Tab PO STA (20:01)
[2020-08-24] MEDS ORDERED: LORazepam 2 MG/ML SDV IVPUSH STA (20:07)
[2020-08-24] MEDS ORDERED: OLANZapine 10 MG Vial IM STA (20:08)
[2020-08-24] MEDS ORDERED: Ondansetron 4 MG/2 ML SDV IV PRN (20:47)
[2020-08-24] MEDS: Potassium Chloride 20 MEQ Tab.ER PO SCH (21:43)
[2020-08-24] MEDS: Sertraline 50 MG Tab PO SCH (21:44)
[2020-08-24] MEDS: Enoxaparin 30 MG/0.3 ML Syringe SUBCUT SCH (21:46)
[2020-08-24] MEDS: Sodium Chloride 0.9% 1,000 ML IV SCH (21:47)
--- NOTE | 2020-08-24 22:45 | EDM.PDOC ---
ED HPI GENERAL MEDICAL PROBLEM - General Chief Complaint: Genitourinary Problem Stated Complaint: WEAKNESS/CONFUSION Time Seen by Provider: 08/24/20 17:50 Source of Information: Reports: Family History Limitations: Reports: Altered Mental Status - History of Present Illness INITIAL COMMENTS - FREE TEXT/NARRATIVE: Patient is a 79 YO WF who is a resident of the [facility] Memory [facility] Unit presented to the ED because of altered LOC. She is more disoriented and confused during the weekend and has poor oral intake and barely can get up from bed. She is also c/o abdominal pain according to the staff at [facility] .She was seen in the clinic today and was subsequently referred to the ED for further evaluation. There is no fever,chills, cough or cold. No nausea/vomiting/diarrhea noted by [facility] staff. - Related Data Allergies Allergy/AdvReac Type Severity Reaction Status Date / Time No Known Allergies Allergy Verified 02/24/19 14:38 Home Meds: Home Meds Lovastatin 40 mg PO BEDTIME 11/04/14 [History] Allopurinol [Zyloprim] 100 mg PO DAILY 08/18/16 [History] Memantine HCl [Namenda] 20 mg PO 08/18/16 [History] Calcifediol [Rayaldee] 60 mcg PO BEDTIME 02/03/19 [History] Furosemide 20 mg PO 09 02/03/19 [History] Pilocarpine [Pilocar 1% Ophth Soln] 1 drop EYERT 02/03/19 [History] Acetaminophen [Tylenol Arthritis] 650 mg PO 09 02/24/19 [History] Aspirin [Halfprin] 81 mg PO 02/24/19 [History] Calcium Carbonate [Calcium] 500 mg PO 1700 02/24/19 [History] Potassium Chloride [Klor-Con M20] 20 meq PO BID 02/24/19 [History] Sertraline HCl 50 mg PO BID 02/24/19 [History] amLODIPine Besylate [Amlodipine Besylate] 10 mg PO 17 02/24/19 [History] QUEtiapine [SEROquel] 25 mg PO DAILY 08/24/20 [History] QUEtiapine [SEROquel] 50 mg PO BEDTIME 08/24/20 [History] Rivastigmine [Exelon] 9.5 mg .ROUTE DAILY 08/24/20 [History] Past Medical History HEENT History: Reports: Cataract, Glaucoma, Impaired Vision Cardiovascular History: Reports: Blood Clots/VTE/DVT, High Cholesterol, Hypertension, SOB on Exertion Gastrointestinal History: Reports: GERD Other Gastrointestinal History: heartburn with Genitourinary History: Reports: Chronic Renal Insuffiency, Renal Disease Other Genitourinary History: KIDNEY DYSFUNCTION D/T [employer] History: Reports: Musculoskeletal History: Reports: Back Pain, Chronic Neurological History: Reports: Alzheimers Disease Oncologic (Cancer) History: Reports: Other (See Below) Other Oncologic History: skin cancer - Infectious Disease History Infectious Disease History: Reports: Mumps - Past Surgical History HEENT Surgical History: Reports: Cataract Surgery, Oral Surgery Cardiovascular Surgical History: Reports: None GI Surgical History: Reports: Appendectomy, Colonoscopy Female Surgical History: Reports: Hysterectomy Neurological Surgical History: Reports: Lumbar Spine Musculoskeletal Surgical History: Reports: Hip Replacement Other Musculoskeletal Surgeries/Procedures:: recent ankle fracture, wears walking boot Social & Family History - Family History Family Medical History: No Pertinent Family History - Tobacco Use Tobacco Use Status *Q: Never Tobacco User Second Hand Smoke Exposure: No - Caffeine Use Caffeine Use: Reports: None - Recreational Drug Use Recreational Drug Use: No - Living Situation & Occupation Living situation: Reports: Occupation: Retired ED ROS GENERAL - Review of Systems Review Of Systems: See Below Constitutional: Reports: Weakness HEENT: Reports: No Symptoms Respiratory: Reports: No Symptoms Cardiovascular: Reports: No Symptoms Endocrine: Reports: No Symptoms GI/Abdominal: Reports: No Symptoms : Reports: No Symptoms Musculoskeletal: Reports: No Symptoms Skin: Reports: No Symptoms Neurological: Reports: Confusion Psychiatric: Reports: Agitation, Confusion ED EXAM, GENERAL - Physical Exam Exam: See Below Exam Limited By: No Limitations General Appearance: Alert, No Apparent Distress Eye Exam: Bilateral Eye: PERRL Ears: Normal External Exam, Normal Canal Nose: Normal Inspection, Normal Mucosa Throat/Mouth: Normal Inspection, Other (dry mouth and lips) Head: Atraumatic, Normocephalic Neck: Normal Inspection, Supple, Non-Tender, Full Range of Motion Respiratory/Chest: No Respiratory Distress, Lungs Clear, Normal Breath Sounds, No Accessory Muscle Use, Chest Non-Tender Cardiovascular: Normal Peripheral Pulses, Regular Rate, Rhythm, No Edema, No Gallop, No JVD, No Murmur, No Rub GI/Abdominal: Normal Bowel Sounds, Soft, Non-Tender, No Organomegaly, No Distention, No Abnormal Bruit, No Mass Back Exam: Normal Inspection, Full Range of Motion Extremities: Normal Inspection, Normal Range of Motion, Non-Tender, No Pedal Edema, Normal Capillary Refill Neurological: Alert, Confused, Disoriented Psychiatric: Normal Affect Course - Vital Signs Text/Narrative:: Lab/CXR result was reviewed and discussed with patient,her son and daughter in law NS 1 L bolus Seroquel 50 mg PO x1 Ativan 5 mg IM x1 Zyprexa [address] abd/pelvis-pending Last Recorded V/S: Last Vital Signs Temp 36.5 C 08/24/20 21:15 Pulse 73 08/24/20 21:15 Resp 16 08/24/20 21:15 BP 133/76 08/24/20 21:15 Pulse Ox 96 08/24/20 21:15 - Orders/Labs/Meds Orders: Active Orders 24 hr Category Date Time Status Patient Status [ADT] Routine ADT 08/24/20 20:47 Active Bedrest Bathroom Privileges [RC] ASDIRECTED Care 08/24/20 20:47 Active Oxygen Therapy [RC] PRN Care 08/24/20 20:47 Active Pulse Oximetry [RC] PRN Care 08/24/20 20:49 Active Vital Signs [RC] 08,12,16,20,00,04 Care 08/24/20 20:47 Active Heart Healthy Diet [DIET] Diet 08/24/20 Breakfast Ordered Chest 1V Frontal [CR] Stat Exams 08/24/20 17:53 Taken BASIC METABOLIC PANEL,BMP [CHEM] AM Lab 08/25/20 05:11 Ordered CBC WITH AUTO DIFF [HEME] AM Lab 08/25/20 05:11 Ordered Acetaminophen [TylenoL] Med 08/24/20 20:47 Active 650 mg PO Q4H PRN Docusate Sodium/Sennosides [Senna Plus] Med 08/24/20 20:47 Active 1 tab PO BID PRN Enoxaparin [Lovenox] Med 08/24/20 21:00 Active 30 mg SUBCUT Q24H Lovastatin [Mevacor] Med 08/24/20 21:00 Active 40 mg PO BEDTIME Memantine [Namenda] Med 08/25/20 09:00 Active 20 mg PO BID@0900,1700 Ondansetron [Zofran] Med 08/24/20 20:47 Active 4 mg IV Q4H PRN Pilocarpine [Pilocar 1% Ophth Soln] Med 08/25/20 09:00 Active 0 ml EYERT 09,17 Potassium Chloride [Klor-Con M20] Med 08/24/20 21:00 Active 20 meq PO BID QUEtiapine [SEROqueL] Med 08/25/20 09:00 Active 25 mg PO DAILY QUEtiapine [SEROquel] Med 08/24/20 21:00 Active 50 mg PO BEDTIME Rivastigmine [Exelon] Med 08/25/20 09:00 Pending 9.5 mg .ROUTE DAILY Sertraline [Zoloft] Med 08/24/20 21:00 Active 50 mg PO BID Sodium Chloride 0.9% [Normal Saline] 1,000 ml Med 08/24/20 17:45 Active IV ASDIRECTED Sodium Chloride 0.9% [Normal Saline] 1,000 ml Med 08/24/20 21:00 Active IV ASDIRECTED Resuscitation Status Routine Resus Stat 08/24/20 20:47 Ordered Medication Orders Acetaminophen (Acetaminophen 325 Mg Tab) 650 mg PO Q4H PRN PRN Reason: Pain (Mild 1-3)/fever Enoxaparin Sodium (Enoxaparin 30 Mg/0.3 Ml Syringe) 30 mg SUBCUT Q24H [facility] Last Admin: 08/24/20 21:46 Dose: 30 mg Documented by: NARCISO Sodium Chloride (Normal Saline) 1,000 mls @ 999 mls/hr IV ASDIRECTED [facility] Last Admin: 08/24/20 18:25 Dose: 999 mls/hr Documented by: JERECAL Sodium Chloride (Normal Saline) 1,000 mls @ 125 mls/hr IV ASDIRECTED [facility] Last Admin: 08/24/20 21:47 Dose: 125 mls/hr Documented by: NARCISO Lovastatin (Lovastatin 40 Mg Tab) 40 mg PO BEDTIME [facility] Last Admin: 08/24/20 21:43 Dose: Not Given Documented by: NARCISO Memantine (Memantine 10 Mg Tab) 20 mg PO BID@0900,1700 [facility] Non-Formulary Medication (Rivastigmine [Exelon]) 9.5 mg .ROUTE DAILY [facility] Ondansetron HCl (Ondansetron 4 Mg/2 Ml Sdv) 4 mg IV Q4H PRN PRN Reason: Nausea/Vomiting Pilocarpine HCl (Pilocarpine 1% Ophth Soln 15 Ml Bottle) 0 ml EYERT [facility] Potassium Chloride (Potassium Chloride 20 Meq Tab.Er) 20 meq PO BID [facility] Last Admin: 08/24/20 21:43 Dose: Not Given Documented by: NARCISO Quetiapine Fumarate (Quetiapine 25 Mg Tab) 25 mg PO DAILY [facility] Quetiapine Fumarate (Quetiapine 50 Mg Tab) 50 mg PO BEDTIME [facility] Last Admin: 08/24/20 21:43 Dose: Not Given Documented by: NARCISO Senna/Docusate Sodium (Docusate Sodium/Sennosides 50-8.6 Mg Tab) 1 tab PO BID PRN PRN Reason: Constipation Sertraline HCl (Sertraline 50 Mg Tab) 50 mg PO BID [facility] Last Admin: 08/24/20 21:44 Dose: Not Given Documented by: NARCISO Labs: Laboratory Tests 08/24/20 08/24/20 08/24/20 Range/Units 17:00 17:00 17:34 WBC 12.8 H (3.0-10.3) x10-3/uL RBC 4.98 (3.60-5.20) x10(6)uL Hgb 14.9 (11.4-15.5) g/dL Hct 44.9 (34.2-48.2) % MCV 90.2 (76.7-100.5) fL MCH 29.9 (23.9-33.9) pg MCHC 33.1 (31.9-34.8) g/dL RDW 15.3 (12.3-16.5) % Plt Count 210 (151-488) x10(3)uL MPV 8.9 (7.1-12.4) fL Neut % (Auto) 86.1 H (30.8-76.2) % Lymph % (Auto) 4.5 L (18.4-52.1) % [place] % (Auto) 9.2 (4.4-15.7) % Eos % (Auto) 0.0 L (0.6-8.1) % Baso % (Auto) 0.2 (0.2-1.5) % Neut # (Auto) 11.1 H (1.5-6.3) x10-3/uL Lymph # (Auto) 0.6 L (1.0-4.4) x10-3/uL [place] # (Auto) 1.2 H (0.3-1.0) x10-3/uL Eos # (Auto) 0.0 (0.0-0.8) x10-3/uL Baso # (Auto) 0.0 (0.0-0.1) x10-3/uL Sodium 141 (135-145) mmol/L Potassium 4.3 (3.5-5.3) mmol/L Chloride 101 D (100-110) mmol/L Carbon Dioxide 26 (21-32) mmol/L BUN 41 H D (7-18) mg/dL Creatinine 2.7 H* (0.55-1.02) mg/dL Est Cr Clr Drug Dosing TNP Estimated GFR (MDRD) 17 L (>60) BUN/Creatinine Ratio 15.2 (9-20) Glucose 191 H D (80-116) mg/dL Calcium 11.4 H D (8.6-10.2) mg/dL Urine Color Yellow (YELLOW) Urine Appearance Clear (CLEAR) Urine pH 6.0 (5.0-6.5) Ur Specific [place] 1.010 (1.010-1.025) Urine Protein Trace (NEGATIVE) mg/dL Urine Glucose (UA) Normal (NORMAL) mg/dL Urine Ketones Negative (NEGATIVE) mg/dL Urine Occult Blood Large H (NEGATIVE) Urine Nitrite Negative (NEGATIVE) Urine Bilirubin Negative (NEGATIVE) Urine Urobilinogen Normal (NEGATIVE) mg/dL Ur Leukocyte Esterase Negative (NEGATIVE) Urine RBC 5-10 H (0-5) Urine WBC 0-5 (0-5) Ur Squamous Epith Cells Few H (NS,R,O) Urine Bacteria Few H (NS) SARS-CoV-2 RNA (BILL) (NEGATIVE) 08/24/20 Range/Units 19:30 WBC (3.0-10.3) x10-3/uL RBC (3.60-5.20) x10(6)uL Hgb (11.4-15.5) g/dL Hct (34.2-48.2) % MCV (76.7-100.5) fL MCH (23.9-33.9) pg MCHC (31.9-34.8) g/dL RDW (12.3-16.5) % Plt Count (151-488) x10(3)uL MPV (7.1-12.4) fL Neut % (Auto) (30.8-76.2) % Lymph % (Auto) (18.4-52.1) % [place] % (Auto) (4.4-15.7) % Eos % (Auto) (0.6-8.1) % Baso % (Auto) (0.2-1.5) % Neut # (Auto) (1.5-6.3) x10-3/uL Lymph # (Auto) (1.0-4.4) x10-3/uL [place] # (Auto) (0.3-1.0) x10-3/uL Eos # (Auto) (0.0-0.8) x10-3/uL Baso # (Auto) (0.0-0.1) x10-3/uL Sodium (135-145) mmol/L Potassium (3.5-5.3) mmol/L Chloride (100-110) mmol/L Carbon Dioxide (21-32) mmol/L BUN (7-18) mg/dL Creatinine (0.55-1.02) mg/dL Est Cr Clr Drug Dosing Estimated GFR (MDRD) (>60) BUN/Creatinine Ratio (9-20) Glucose (80-116) mg/dL Calcium (8.6-10.2) mg/dL Urine Color (YELLOW) Urine Appearance (CLEAR) Urine pH (5.0-6.5) Ur Specific [place] (1.010-1.025) Urine Protein (NEGATIVE) mg/dL Urine Glucose (UA) (NORMAL) mg/dL Urine Ketones (NEGATIVE) mg/dL Urine Occult Blood (NEGATIVE) Urine Nitrite (NEGATIVE) Urine Bilirubin (NEGATIVE) Urine Urobilinogen (NEGATIVE) mg/dL Ur Leukocyte Esterase (NEGATIVE) Urine RBC (0-5) Urine WBC (0-5) Ur Squamous Epith Cells (NS,R,O) Urine Bacteria (NS) SARS-CoV-2 RNA (BILL) Negative (NEGATIVE) Meds: Medications Generic Name Dose Route Start Last Admin Trade Name Freq PRN Reason Stop Dose Admin Acetaminophen 650 mg 08/24/20 20:47 Acetaminophen 325 Mg Tab PO Q4H PRN Pain (Mild 1-3)/fever Enoxaparin Sodium 30 mg 08/24/20 21:00 08/24/20 21:46 Enoxaparin 30 Mg/0.3 Ml Syringe SUBCUT 30 mg Q24H [facility] Administration Sodium Chloride 1,000 mls @ 999 mls/hr 08/24/20 17:45 08/24/20 18:25 Normal Saline IV 999 mls/hr ASDIRECTED [facility] Administration Sodium Chloride 1,000 mls @ 125 mls/hr 08/24/20 21:00 08/24/20 21:47 Normal Saline IV 125 mls/hr ASDIRECTED [facility] Administration Lovastatin 40 mg 08/24/20 21:00 08/24/20 21:43 Lovastatin 40 Mg Tab PO Not Given BEDTIME [facility] Memantine 20 mg 08/25/20 09:00 Memantine 10 Mg Tab PO BID@0900,1700 [facility] Non-Formulary Medication 9.5 mg 08/25/20 09:00 Rivastigmine [Exelon] .ROUTE DAILY [facility] Ondansetron HCl 4 mg 08/24/20 20:47 Ondansetron 4 Mg/2 Ml Sdv IV Q4H PRN Nausea/Vomiting Pilocarpine HCl 0 ml 08/25/20 09:00 Pilocarpine 1% Ophth Soln 15 Ml Bottle EYERT 17 [facility] Potassium Chloride 20 meq 08/24/20 21:00 08/24/20 21:43 Potassium Chloride 20 Meq Tab.Er PO Not Given BID [facility] Quetiapine Fumarate 25 mg 08/25/20 09:00 Quetiapine 25 Mg Tab PO DAILY [facility] Quetiapine Fumarate 50 mg 08/24/20 21:00 08/24/20 21:43 Quetiapine 50 Mg Tab PO Not Given BEDTIME [facility] Senna/Docusate Sodium 1 tab 08/24/20 20:47 Docusate Sodium/Sennosides 50-8.6 Mg Tab PO BID PRN Constipation Sertraline HCl 50 mg 08/24/20 21:00 08/24/20 21:44 Sertraline 50 Mg Tab PO Not Given BID [facility] Discontinued Medications Generic Name Dose Route Start Last Admin Trade Name Freq PRN Reason Stop Dose Admin Lorazepam 1 mg 08/24/20 20:07 08/24/20 20:25 Lorazepam 2 Mg/Ml Sdv IVPUSH 08/24/20 20:08 1 mg NOW STA Administration Olanzapine 5 mg 08/24/20 20:08 08/24/20 20:26 Olanzapine 10 Mg Vial IM 08/24/20 20:09 5 mg NOW STA Administration Quetiapine Fumarate 50 mg 08/24/20 20:01 08/24/20 20:26 Quetiapine 25 Mg Tab PO 08/24/20 20:02 50 mg NOW STA Administration Departure - Departure Time of Disposition: 21:00 Disposition: Admitted As Inpatient 66 Condition: Good Clinical Impression: Metabolic encephalopathy, Dehydration, ALEJANDRINA (acute kidney injury), Dementia - Discharge Information Sepsis Event Note (ED) - Evaluation Sepsis Screening Result: No Definite Risk - Focused Exam Vital Signs: Vital Signs Temp Pulse Resp BP Pulse Ox 08/24/20 17:45 36.7 C 80 18 143/84 H 98 - My Orders Last 24 Hours: My Active Orders 08/24/20 Breakfast Heart Healthy Diet [DIET] 08/24/20 17:45 Sodium Chloride 0.9% [Normal Saline] 1,000 ml IV ASDIRECTED 08/24/20 17:53 Chest 1V Frontal [CR] Stat 08/24/20 20:47 Patient Status [ADT] Routine Bedrest Bathroom Privileges [RC] ASDIRECTED Oxygen Therapy [RC] PRN Vital Signs [RC] 08,12,16,20,00,04 Acetaminophen [TylenoL] 650 mg PO Q4H PRN Docusate Sodium/Sennosides [Senna Plus] 1 tab PO BID PRN Ondansetron [Zofran] 4 mg IV Q4H PRN Resuscitation Status Routine 08/24/20 20:49 Pulse Oximetry [RC] PRN 08/24/20 21:00 Enoxaparin [Lovenox] 30 mg SUBCUT Q24H Lovastatin [Mevacor] 40 mg PO BEDTIME Potassium Chloride [Klor-Con M20] 20 meq PO BID QUEtiapine [SEROquel] 50 mg PO BEDTIME Sertraline [Zoloft] 50 mg PO BID Sodium Chloride 0.9% [Normal Saline] 1,000 ml IV ASDIRECTED 08/25/20 05:11 BASIC METABOLIC PANEL,BMP [CHEM] AM CBC WITH AUTO DIFF [HEME] AM 08/25/20 09:00 Memantine [Namenda] 20 mg PO BID@0900,1700 Pilocarpine [Pilocar 1% Ophth Soln] 0 ml EYERT , QUEtiapine [SEROqueL] 25 mg PO DAILY Rivastigmine [Exelon] 9.5 mg .ROUTE DAILY - Assessment/Plan Last 24 Hours: My Active Orders 08/24/20 Breakfast Heart Healthy Diet [DIET] 08/24/20 17:45 Sodium Chloride 0.9% [Normal Saline] 1,000 ml IV ASDIRECTED 08/24/20 17:53 Chest 1V Frontal [CR] Stat 08/24/20 20:47 Patient Status [ADT] Routine Bedrest Bathroom Privileges [RC] ASDIRECTED Oxygen Therapy [RC] PRN Vital Signs [RC] 08,12,16,20,00,04 Acetaminophen [TylenoL] 650 mg PO Q4H PRN Docusate Sodium/Sennosides [Senna Plus] 1 tab PO BID PRN Ondansetron [Zofran] 4 mg IV Q4H PRN Resuscitation Status Routine 08/24/20 20:49 Pulse Oximetry [RC] PRN 08/24/20 21:00 Enoxaparin [Lovenox] 30 mg SUBCUT Q24H Lovastatin [Mevacor] 40 mg PO BEDTIME Potassium Chloride [Klor-Con M20] 20 meq PO BID QUEtiapine [SEROquel] 50 mg PO BEDTIME Sertraline [Zoloft] 50 mg PO BID Sodium Chloride 0.9% [Normal Saline] 1,000 ml IV ASDIRECTED 08/25/20 05:11 BASIC METABOLIC PANEL,BMP [CHEM] AM CBC WITH AUTO DIFF [HEME] AM 08/25/20 09:00 Memantine [Namenda] 20 mg PO BID@0900,1700 Pilocarpine [Pilocar 1% Ophth Soln] 0 ml EYERT 17 QUEtiapine [SEROqueL] 25 mg PO DAILY Rivastigmine [Exelon] 9.5 mg .ROUTE DAILY
[2020-08-25] MEDS: Sodium Chloride 0.9% 1,000 ML IV SCH ×3 (05:18→22:36)
[2020-08-25] MEDS: Potassium Chloride 20 MEQ Tab.ER PO SCH ×2 (08:21→21:05)
[2020-08-25] MEDS: Sertraline 50 MG Tab PO SCH ×2 (08:22→21:06)
[2020-08-25] MEDS: QUEtiapine 25 MG Tab PO SCH (08:22)
[2020-08-25] MEDS: Pilocarpine 1% Ophth Soln 15 ML Bottle EYERT SCH ×2 (08:23→18:05)
[2020-08-25] MEDS ORDERED: Memantine 10 MG Tab PO SCH (09:00)
--- NOTE | 2020-08-25 09:14 | PCM.HP.2 ---
H&P History of Present Illness - General Date of Service: 08/25/20 Admit Problem/Dx: Admission Diagnosis/Problem Admission Diagnosis/Problem Metabolic encephalopathy Source of Information: Family, Old Records History Limitations: Reports: Altered Mental Status - History of Present Illness Initial Comments - Free Text/Narative: Ms Mercer was brought in because of difficulty in ambulation,decreased oral intake and worsening confusion. She has a h/o Dementia and lives at the [facility] memory care unit for the last 1 year. Her symptoms got worse over the weekend,and was not able to get out of bed for 1-2 days. Also recently had a fall,unwitnessed and complained of mild back pain. However,X rays of the Pelvis,Lumbar spine done at the clinic were negative. She further has complained to the staff of non specific abdominal pain.Her past history also includes HTN and CKD. - Related Data Allergies/Adverse Reactions: Allergies Allergy/AdvReac Type Severity Reaction Status Date / Time No Known Allergies Allergy Verified 02/24/19 14:38 Home Medications: Home Meds Lovastatin 40 mg PO BEDTIME 11/04/14 [History] Allopurinol [Zyloprim] 100 mg PO DAILY 08/18/16 [History] Memantine HCl [Namenda] 20 mg PO 08/18/16 [History] Calcifediol [Rayaldee] 60 mcg PO BEDTIME 02/03/19 [History] Furosemide 20 mg PO 09 02/03/19 [History] Pilocarpine [Pilocar 1% Ophth Soln] 1 drop EYERT 02/03/19 [History] Acetaminophen [Tylenol Arthritis] 650 mg PO 02/24/19 [History] Aspirin [Halfprin] 81 mg PO 02/24/19 [History] Calcium Carbonate [Calcium] 500 mg PO 1700 02/24/19 [History] Potassium Chloride [Klor-Con M20] 20 meq PO BID 02/24/19 [History] Sertraline HCl 50 mg PO BID 02/24/19 [History] amLODIPine Besylate [Amlodipine Besylate] 10 mg PO 02/24/19 [History] QUEtiapine [SEROquel] 25 mg PO DAILY 08/24/20 [History] QUEtiapine [SEROquel] 50 mg PO BEDTIME 08/24/20 [History] Rivastigmine [Exelon] 9.5 mg .ROUTE DAILY 08/24/20 [History] Past Medical History HEENT History: Reports: Cataract, Glaucoma, Impaired Vision Cardiovascular History: Reports: Blood Clots/VTE/DVT, High Cholesterol, Hypertension, SOB on Exertion Gastrointestinal History: Reports: GERD Other Gastrointestinal History: heartburn with Genitourinary History: Reports: Chronic Renal Insuffiency, Renal Disease Other Genitourinary History: KIDNEY DYSFUNCTION D/T TOXIEMIA BACK WEDGER History: Reports: Musculoskeletal History: Reports: Back Pain, Chronic Neurological History: Reports: Alzheimers Disease Oncologic (Cancer) History: Reports: Other (See Below) Other Oncologic History: skin cancer - Infectious Disease History Infectious Disease History: Reports: Mumps - Past Surgical History HEENT Surgical History: Reports: Cataract Surgery, Oral Surgery Cardiovascular Surgical History: Reports: None GI Surgical History: Reports: Appendectomy, Colonoscopy Female Surgical History: Reports: Hysterectomy Neurological Surgical History: Reports: Lumbar Spine Musculoskeletal Surgical History: Reports: Hip Replacement Other Musculoskeletal Surgeries/Procedures:: recent ankle fracture, wears walking boot Social & Family History - Family History Family Medical History: No Pertinent Family History - Tobacco Use Tobacco Use Status *Q: Never Tobacco User Second Hand Smoke Exposure: No - Caffeine Use Caffeine Use: Reports: None - Recreational Drug Use Recreational Drug Use: No - Living Situation & Occupation Living situation: Reports: Occupation: Retired H&P Review of Systems - Review of Systems: Review Of Systems: Comprehensive ROS is negative, except as noted in HPI. Exam - Exam Exam: See Below - Vital Signs Vital Signs: Last Vital Signs Temp 97.4 F 08/25/20 08:30 Pulse 62 08/25/20 08:30 Resp 18 08/25/20 08:30 BP 115/60 08/25/20 08:30 Pulse Ox 96 08/25/20 08:30 Weight: 64.098 kg - Exam General: Alert. No: Oriented HEENT: PERRLA Neck: Supple Lungs: Clear to Auscultation Cardiovascular: Regular Rate GI/Abdominal Exam: Normal Bowel Sounds, Soft, Tender (LLQ) (Female) Exam: Deferred Rectal (Female) Exam: Deferred Back Exam: Normal Inspection Extremities: Normal Inspection Skin: Warm Neurological: Cranial Nerves Intact Neuro Extensive - Mental Status: Alert. No: Oriented x3 Psychiatric: Alert - Patient Data Lab Results Last 24 hrs: Laboratory Results - last 24 hr 08/24/20 08/24/20 08/24/20 Range/Units 17:00 17:00 17:00 WBC 12.8 H (3.0-10.3) x10-3/uL RBC 4.98 (3.60-5.20) x10(6)uL Hgb 14.9 (11.4-15.5) g/dL Hct 44.9 (34.2-48.2) % MCV 90.2 (76.7-100.5) fL MCH 29.9 (23.9-33.9) pg MCHC 33.1 (31.9-34.8) g/dL RDW 15.3 (12.3-16.5) % Plt Count 210 (151-488) x10(3)uL MPV 8.9 (7.1-12.4) fL Neut % (Auto) 86.1 H (30.8-76.2) % Lymph % (Auto) 4.5 L (18.4-52.1) % [place] % (Auto) 9.2 (4.4-15.7) % Eos % (Auto) 0.0 L (0.6-8.1) % Baso % (Auto) 0.2 (0.2-1.5) % Neut # (Auto) 11.1 H (1.5-6.3) x10-3/uL Lymph # (Auto) 0.6 L (1.0-4.4) x10-3/uL [place] # (Auto) 1.2 H (0.3-1.0) x10-3/uL Eos # (Auto) 0.0 (0.0-0.8) x10-3/uL Baso # (Auto) 0.0 (0.0-0.1) x10-3/uL Sodium 141 (135-145) mmol/L Potassium 4.3 (3.5-5.3) mmol/L Chloride 101 D (100-110) mmol/L Carbon Dioxide 26 (21-32) mmol/L BUN 41 H D (7-18) mg/dL Creatinine 2.7 H* (0.55-1.02) mg/dL Est Cr Clr Drug Dosing TNP Estimated GFR (MDRD) 17 L (>60) BUN/Creatinine Ratio 15.2 (9-20) Glucose 191 H D (80-116) mg/dL Calcium 11.4 H D (8.6-10.2) mg/dL Amylase 220 H (25-115) U/L Lipase (73-393) U/L Urine Color (YELLOW) Urine Appearance (CLEAR) Urine pH (5.0-6.5) Ur Specific [place] (1.010-1.025) Urine Protein (NEGATIVE) mg/dL Urine Glucose (UA) (NORMAL) mg/dL Urine Ketones (NEGATIVE) mg/dL Urine Occult Blood (NEGATIVE) Urine Nitrite (NEGATIVE) Urine Bilirubin (NEGATIVE) Urine Urobilinogen (NEGATIVE) mg/dL Ur Leukocyte Esterase (NEGATIVE) Urine RBC (0-5) Urine WBC (0-5) Ur Squamous Epith Cells (NS,R,O) Urine Bacteria (NS) SARS-CoV-2 RNA (BILL) (NEGATIVE) 08/24/20 08/24/20 08/24/20 Range/Units 17:00 17:34 19:30 WBC (3.0-10.3) x10-3/uL RBC (3.60-5.20) x10(6)uL Hgb (11.4-15.5) g/dL Hct (34.2-48.2) % MCV (76.7-100.5) fL MCH (23.9-33.9) pg MCHC (31.9-34.8) g/dL RDW (12.3-16.5) % Plt Count (151-488) x10(3)uL MPV (7.1-12.4) fL Neut % (Auto) (30.8-76.2) % Lymph % (Auto) (18.4-52.1) % [place] % (Auto) (4.4-15.7) % Eos % (Auto) (0.6-8.1) % Baso % (Auto) (0.2-1.5) % Neut # (Auto) (1.5-6.3) x10-3/uL Lymph # (Auto) (1.0-4.4) x10-3/uL [place] # (Auto) (0.3-1.0) x10-3/uL Eos # (Auto) (0.0-0.8) x10-3/uL Baso # (Auto) (0.0-0.1) x10-3/uL Sodium (135-145) mmol/L Potassium (3.5-5.3) mmol/L Chloride (100-110) mmol/L Carbon Dioxide (21-32) mmol/L BUN (7-18) mg/dL Creatinine (0.55-1.02) mg/dL Est Cr Clr Drug Dosing Estimated GFR (MDRD) (>60) BUN/Creatinine Ratio (9-20) Glucose (80-116) mg/dL Calcium (8.6-10.2) mg/dL Amylase (25-115) U/L Lipase 186 (73-393) U/L Urine Color Yellow (YELLOW) Urine Appearance Clear (CLEAR) Urine pH 6.0 (5.0-6.5) Ur Specific [place] 1.010 (1.010-1.025) Urine Protein Trace (NEGATIVE) mg/dL Urine Glucose (UA) Normal (NORMAL) mg/dL Urine Ketones Negative (NEGATIVE) mg/dL Urine Occult Blood Large H (NEGATIVE) Urine Nitrite Negative (NEGATIVE) Urine Bilirubin Negative (NEGATIVE) Urine Urobilinogen Normal (NEGATIVE) mg/dL Ur Leukocyte Esterase Negative (NEGATIVE) Urine RBC 5-10 H (0-5) Urine WBC 0-5 (0-5) Ur Squamous Epith Cells Few H (NS,R,O) Urine Bacteria Few H (NS) SARS-CoV-2 RNA (BILL) Negative (NEGATIVE) 08/25/20 08/25/20 Range/Units 05:55 05:55 WBC 9.7 (3.0-10.3) x10-3/uL RBC 4.09 (3.60-5.20) x10(6)uL Hgb 12.3 (11.4-15.5) g/dL Hct 37.2 (34.2-48.2) % MCV 90.9 (76.7-100.5) fL MCH 29.9 (23.9-33.9) pg MCHC 32.9 (31.9-34.8) g/dL RDW 15.2 (12.3-16.5) % Plt Count 163 (151-488) x10(3)uL MPV 8.8 (7.1-12.4) fL Neut % (Auto) 77.8 H (30.8-76.2) % Lymph % (Auto) 10.3 L (18.4-52.1) % [place] % (Auto) 11.1 (4.4-15.7) % Eos % (Auto) 0.6 (0.6-8.1) % Baso % (Auto) 0.2 (0.2-1.5) % Neut # (Auto) 7.5 H (1.5-6.3) x10-3/uL Lymph # (Auto) 1.0 (1.0-4.4) x10-3/uL [place] # (Auto) 1.1 H (0.3-1.0) x10-3/uL Eos # (Auto) 0.1 (0.0-0.8) x10-3/uL Baso # (Auto) 0.0 (0.0-0.1) x10-3/uL Sodium 146 H (135-145) mmol/L Potassium 3.8 (3.5-5.3) mmol/L Chloride 108 D (100-110) mmol/L Carbon Dioxide 26 (21-32) mmol/L BUN 30 H D (7-18) mg/dL Creatinine 1.9 H (0.55-1.02) mg/dL Est Cr Clr Drug Dosing 22.48 Estimated GFR (MDRD) 26 L (>60) BUN/Creatinine Ratio 15.8 (9-20) Glucose 115 (80-116) mg/dL Calcium 9.2 D (8.6-10.2) mg/dL Amylase (25-115) U/L Lipase (73-393) U/L Urine Color (YELLOW) Urine Appearance (CLEAR) Urine pH (5.0-6.5) Ur Specific [place] (1.010-1.025) Urine Protein (NEGATIVE) mg/dL Urine Glucose (UA) (NORMAL) mg/dL Urine Ketones (NEGATIVE) mg/dL Urine Occult Blood (NEGATIVE) Urine Nitrite (NEGATIVE) Urine Bilirubin (NEGATIVE) Urine Urobilinogen (NEGATIVE) mg/dL Ur Leukocyte Esterase (NEGATIVE) Urine RBC (0-5) Urine WBC (0-5) Ur Squamous Epith Cells (NS,R,O) Urine Bacteria (NS) SARS-CoV-2 RNA (BILL) (NEGATIVE) Result Diagrams: 08/25/20 05:55 08/25/20 05:55 Sepsis Event Note - Evaluation Sepsis Screening Result: No Definite Risk - Focused Exam Vital Signs: Vital Signs Temp Pulse Resp BP Pulse Ox 08/25/20 08:30 97.4 F 62 18 115/60 96 08/25/20 03:08 97.7 F 59 L 16 122/67 97 08/24/20 21:15 97.7 F 73 16 133/76 96 - Problem List (1) Acute on chronic kidney failure SNOMED Code(s): 792015444 ICD Code: N17.9 - ACUTE KIDNEY FAILURE, UNSPECIFIED; N18.9 - CHRONIC KIDNEY DISEASE, UNSPECIFIED Status: Acute Current Visit: Yes Qualifiers: Acute renal failure type: unspecified (2) HTN (hypertension) SNOMED Code(s): 42594113 ICD Code: I10 - ESSENTIAL (PRIMARY) HYPERTENSION Status: Chronic Current Visit: Yes Qualifiers: Hypertension type: essential hypertension Qualified Code(s): I10 - Essential (primary) hypertension (3) Abdominal pain SNOMED Code(s): 03146538 ICD Code: R10.9 - UNSPECIFIED ABDOMINAL PAIN Status: Acute Current Visit: Yes Qualifiers: Abdominal location: left lower quadrant Qualified Code(s): R10.32 - Left lower quadrant pain (4) Alzheimer's dementia SNOMED Code(s): 30157232 ICD Code: G30.9 - ALZHEIMER'S DISEASE, UNSPECIFIED; F02.80 - DEMENTIA IN OTH DISEASES CLASSD ELSWHR W/O BEHAVRL DISTURB Status: Chronic Current Visit: Yes Qualifiers: Alzheimer's disease onset: late-onset Dementia behavioral disturbance: with behavioral disturbance Qualified Code(s): G30.1 - Alzheimer's disease with late onset; F02.81 - Dementia in other diseases classified elsewhere with behavioral disturbance (5) Hyperparathyroidism SNOMED Code(s): 70772743 ICD Code: E21.3 - HYPERPARATHYROIDISM, UNSPECIFIED Status: Chronic Current Visit: No Problem List Initiated/Reviewed/Updated: Yes Orders Last 24hrs: Active Orders 24 hr Category Date Time Status Patient Status [ADT] Routine ADT 08/24/20 20:47 Active Bedrest Bathroom Privileges [RC] ASDIRECTED Care 08/24/20 20:47 Active Oxygen Therapy [RC] PRN Care 08/24/20 20:47 Active Pulse Oximetry [RC] PRN Care 08/24/20 20:49 Active Vital Signs [RC] 08,12,16,20,00,04 Care 08/24/20 20:47 Active OT Evaluation and Treatment [CONS] Routine Cons 08/25/20 09:07 Ordered PT Evaluation and Treatment [CONS] Routine Cons 08/25/20 09:07 Ordered Abdomen Pelvis w Cont [CT] Routine Exams 08/25/20 07:00 Ordered Chest 1V Frontal [CR] Stat Exams 08/24/20 17:53 Taken BASIC METABOLIC PANEL,BMP [CHEM] AM Lab 08/26/20 05:11 Ordered CBC WITH AUTO DIFF [HEME] AM Lab 08/26/20 05:11 Ordered Acetaminophen [TylenoL] Med 08/24/20 20:47 Active 650 mg PO Q4H PRN Docusate Sodium/Sennosides [Senna Plus] Med 08/24/20 20:47 Active 1 tab PO BID PRN Enoxaparin [Lovenox] Med 08/24/20 21:00 Active 30 mg SUBCUT Q24H Lovastatin [Mevacor] Med 08/24/20 21:00 Active 40 mg PO BEDTIME Memantine [Namenda] Med 08/25/20 09:00 Hold 20 mg PO BID@0900,1700 Ondansetron [Zofran] Med 08/24/20 20:47 Active 4 mg IV Q4H PRN Pilocarpine [Pilocar 1% Ophth Soln] Med 08/25/20 09:00 Active 0 ml EYERT 09,17 Potassium Chloride [Klor-Con M20] Med 08/24/20 21:00 Active 20 meq PO BID QUEtiapine [SEROqueL] Med 08/25/20 09:00 Active 25 mg PO DAILY QUEtiapine [SEROquel] Med 08/24/20 21:00 Active 50 mg PO BEDTIME Rivastigmine [Exelon] Med 08/25/20 09:00 Pending 9.5 mg .ROUTE DAILY Sertraline [Zoloft] Med 08/24/20 21:00 Active 50 mg PO BID Sodium Chloride 0.9% [Normal Saline] 1,000 ml Med 08/24/20 17:45 Active IV ASDIRECTED Sodium Chloride 0.9% [Normal Saline] 1,000 ml Med 08/24/20 21:00 Active IV ASDIRECTED Resuscitation Status Routine Resus Stat 08/24/20 20:47 Ordered Medication Orders Acetaminophen (Acetaminophen 325 Mg Tab) 650 mg PO Q4H PRN PRN Reason: Pain (Mild 1-3)/fever Enoxaparin Sodium (Enoxaparin 30 Mg/0.3 Ml Syringe) 30 mg SUBCUT Q24H [facility] Last Admin: 08/24/20 21:46 Dose: 30 mg Documented by: NARCISO Sodium Chloride (Normal Saline) 1,000 mls @ 999 mls/hr IV ASDIRECTED [facility] Last Admin: 08/24/20 18:25 Dose: 999 mls/hr Documented by: ADAL Sodium Chloride (Normal Saline) 1,000 mls @ 125 mls/hr IV ASDIRECTED [facility] Last Admin: 08/25/20 05:18 Dose: 125 mls/hr Documented by: Infusion: 08/25/20 05:18 Dose: 125 mls/hr Documented by: Admin: 08/24/20 21:47 Dose: 125 mls/hr Documented by: NARCISO Lovastatin (Lovastatin 40 Mg Tab) 40 mg PO BEDTIME [facility] Last Admin: 08/24/20 21:43 Dose: Not Given Documented by: NARCISO Memantine (Memantine 10 Mg Tab) 20 mg PO BID@0900,1700 [facility] Last Admin: 08/25/20 08:25 Dose: 20 mg Documented by: CECILIA Non-Formulary Medication (Rivastigmine [Exelon]) 9.5 mg .ROUTE DAILY [facility] Ondansetron HCl (Ondansetron 4 Mg/2 Ml Sdv) 4 mg IV Q4H PRN PRN Reason: Nausea/Vomiting Pilocarpine HCl (Pilocarpine 1% Ophth Soln 15 Ml Bottle) 0 ml EYERT [facility] Last Admin: 08/25/20 08:23 Dose: 1 drop Documented by: CECILIA Potassium Chloride (Potassium Chloride 20 Meq Tab.Er) 20 meq PO BID [facility] Last Admin: 08/25/20 08:21 Dose: 20 meq Documented by: Admin: 08/24/20 21:43 Dose: Not Given Documented by: NARCISO Quetiapine Fumarate (Quetiapine 25 Mg Tab) 25 mg PO DAILY [facility] Last Admin: 08/25/20 08:22 Dose: 25 mg Documented by: CECILIA Quetiapine Fumarate (Quetiapine 50 Mg Tab) 50 mg PO BEDTIME [facility] Last Admin: 08/24/20 21:43 Dose: Not Given Documented by: NARCISO Senna/Docusate Sodium (Docusate Sodium/Sennosides 50-8.6 Mg Tab) 1 tab PO BID PRN PRN Reason: Constipation Sertraline HCl (Sertraline 50 Mg Tab) 50 mg PO BID [facility] Last Admin: 08/25/20 08:22 Dose: 50 mg Documented by: Admin: 08/24/20 21:44 Dose: Not Given Documented by: NARCISO Assessment/Plan Comment:: She needed Zyprexa overnight due to agitation. Haldol or Seroquel are alternatives. Continue fluid replacement. Creatine is better. Consult PT/OT. Discuss disposition with family. CT abd today. ?Diverticulitis
[2020-08-25] MEDS: RIVASTIGMINE 9.5 MG TOP SCH (10:57)
[2020-08-25] MEDS: Acetaminophen 325 MG Tab PO PRN (12:09)
[2020-08-25] MEDS: traMADol 50 MG Tab PO SCH ×2 (13:35→21:06)
--- NOTE | 2020-08-25 16:47 | CR ---
INDICATION: Cough. CHEST ONE VIEW: :Portable AP upright view of the chest was obtained 08/24/20 and compared with 02/24/19 and 08/10/17. The heart appears to be enlarged. Fixed hiatal hernia is again noted and may be somewhat increased in size compared with the previous study. A definite area of consolidating pneumonia or effusion was not identified. There are some linear densities in the right midlung field and right lung base which may represent subsegmental atelectasis. IMPRESSION: 1. ASHD with cardiomegaly. No definite CHF. 2. Enlarging appearance of fixed hiatal hernia. 3. Possible areas of linear atelectasis in the right mid and lower lung field versus fibrosis since the previous study. MTDD
[2020-08-25] MEDS: Enoxaparin 30 MG/0.3 ML Syringe SUBCUT SCH (21:06)
[2020-08-26] MEDS: traMADol 50 MG Tab PO SCH (05:59)
[2020-08-26] MEDS: Sodium Chloride 0.9% 1,000 ML IV SCH (06:00)
[2020-08-26] MEDS: Acetaminophen 325 MG Tab PO PRN (08:02)
[2020-08-26] MEDS ORDERED: traMADol 50 MG Tab PO PRN (08:58)
--- NOTE | 2020-08-26 09:01 | PCM.PN ---
- General Info Date of Service: 08/26/20 Subjective Update: Ms Ramos feels better today. CT abdomen showed no acute process,built it revealed a scarum fracture. Functional Status: Reports: Pain Controlled - Review of Systems HEENT: Reports: No Symptoms Pulmonary: Reports: No Symptoms Cardiovascular: Reports: No Symptoms Gastrointestinal: Reports: No Symptoms Genitourinary: Reports: No Symptoms - Patient Data Vitals - Most Recent: Last Vital Signs Temp 97.5 F 08/26/20 04:00 Pulse 58 L 08/26/20 04:00 Resp 16 08/26/20 04:00 BP 136/66 08/26/20 04:00 Pulse Ox 95 08/26/20 04:00 Weight - Most Recent: 64.098 kg I&O - Last 24 Hours: Intake & Output 08/25/20 08/26/20 08/26/20 22:59 06:59 14:59 Intake Total 909 1014 Balance 909 1014 Lab Results Last 24 Hours: Laboratory Results - last 24 hr 08/26/20 08/26/20 Range/Units 07:00 07:00 WBC 7.1 (3.0-10.3) x10-3/uL RBC 3.79 (3.60-5.20) x10(6)uL Hgb 11.5 (11.4-15.5) g/dL Hct 34.7 (34.2-48.2) % MCV 91.4 (76.7-100.5) fL MCH 30.3 (23.9-33.9) pg MCHC 33.1 (31.9-34.8) g/dL RDW 15.2 (12.3-16.5) % Plt Count 150 L (151-488) x10(3)uL MPV 8.7 (7.1-12.4) fL Neut % (Auto) 72.7 (30.8-76.2) % Lymph % (Auto) 15.3 L (18.4-52.1) % [place] % (Auto) 9.3 (4.4-15.7) % Eos % (Auto) 2.4 (0.6-8.1) % Baso % (Auto) 0.3 (0.2-1.5) % Neut # (Auto) 5.2 (1.5-6.3) x10-3/uL Lymph # (Auto) 1.1 (1.0-4.4) x10-3/uL [place] # (Auto) 0.7 (0.3-1.0) x10-3/uL Eos # (Auto) 0.2 (0.0-0.8) x10-3/uL Baso # (Auto) 0.0 (0.0-0.1) x10-3/uL Sodium 142 (135-145) mmol/L Potassium 3.4 L (3.5-5.3) mmol/L Chloride 107 (100-110) mmol/L Carbon Dioxide 25 (21-32) mmol/L BUN 17 D (7-18) mg/dL Creatinine 1.3 H (0.55-1.02) mg/dL Est Cr Clr Drug Dosing 32.85 mL/min Estimated GFR (MDRD) 40 L (>60) BUN/Creatinine Ratio 13.1 (9-20) Glucose 94 (80-116) mg/dL Calcium 8.2 L (8.6-10.2) mg/dL Med Orders - Current: Current Medications Acetaminophen (Acetaminophen 325 Mg Tab) 650 mg PO Q4H PRN PRN Reason: Pain (Mild 1-3)/fever Last Admin: 08/26/20 08:02 Dose: 650 mg Documented by: Enoxaparin Sodium (Enoxaparin 30 Mg/0.3 Ml Syringe) 30 mg SUBCUT Q24H [facility] Last Admin: 08/25/20 21:06 Dose: 30 mg Documented by: Sodium Chloride (Normal Saline) 1,000 mls @ 999 mls/hr IV ASDIRECTED [facility] Last Admin: 08/24/20 18:25 Dose: 999 mls/hr Documented by: Lovastatin (Lovastatin 40 Mg Tab) 40 mg PO BEDTIME [facility] Last Admin: 08/25/20 21:05 Dose: 40 mg Documented by: Memantine (Memantine 10 Mg Tab) 10 mg PO BID [facility] Naproxen (Naproxen 500 Mg Tab) 500 mg PO Q12HR [facility] Rivastigmine [Exelon ] 9.5 Mg Patch *Ptom * 9.5 mg TOP DAILY [facility] Last Admin: 08/25/20 10:57 Dose: 9.5 mg Documented by: Ondansetron HCl (Ondansetron 4 Mg/2 Ml Sdv) 4 mg IV Q4H PRN PRN Reason: Nausea/Vomiting Pilocarpine HCl (Pilocarpine 1% Ophth Soln 15 Ml Bottle) 0 ml EYERT [facility] Last Admin: 08/25/20 18:05 Dose: 1 drop Documented by: Potassium Chloride (Potassium Chloride 20 Meq Tab.Er) 20 meq PO BID [facility] Last Admin: 08/25/20 21:05 Dose: 20 meq Documented by: Quetiapine Fumarate (Quetiapine 25 Mg Tab) 25 mg PO DAILY [facility] Last Admin: 08/25/20 08:22 Dose: 25 mg Documented by: Quetiapine Fumarate (Quetiapine 50 Mg Tab) 50 mg PO DAILY@1999 [facility] Last Admin: 08/25/20 21:05 Dose: 50 mg Documented by: Senna/Docusate Sodium (Docusate Sodium/Sennosides 50-8.6 Mg Tab) 1 tab PO BID PRN PRN Reason: Constipation Sertraline HCl (Sertraline 50 Mg Tab) 50 mg PO BID [facility] Last Admin: 08/25/20 21:06 Dose: 50 mg Documented by: Tramadol HCl (Tramadol 50 Mg Tab) 50 mg PO Q6H PRN PRN Reason: Breakthrough Pain Discontinued Medications Sodium Chloride (Normal Saline) 1,000 mls @ 125 mls/hr IV ASDIRECTED [facility] Last Admin: 08/26/20 06:00 Dose: 125 mls/hr Documented by: Lorazepam (Lorazepam 2 Mg/Ml Sdv) 1 mg IVPUSH NOW STA Stop: 08/24/20 20:08 Last Admin: 08/24/20 20:25 Dose: 1 mg Documented by: Memantine (Memantine 10 Mg Tab) 20 mg PO BID@0900,1700 [facility] Last Admin: 08/25/20 08:25 Dose: 20 mg Documented by: Olanzapine (Olanzapine 10 Mg Vial) 5 mg IM NOW STA Stop: 08/24/20 20:09 Last Admin: 08/24/20 20:26 Dose: 5 mg Documented by: Quetiapine Fumarate (Quetiapine 25 Mg Tab) 50 mg PO NOW STA Stop: 08/24/20 20:02 Last Admin: 08/24/20 20:26 Dose: 50 mg Documented by: Quetiapine Fumarate (Quetiapine 50 Mg Tab) 50 mg PO BEDTIME [facility] Last Admin: 08/24/20 21:43 Dose: Not Given Documented by: Tramadol HCl (Tramadol 50 Mg Tab) 50 mg PO Q8H [facility] Last Admin: 08/26/20 05:59 Dose: 50 mg Documented by: - Exam General: Alert, Cooperative HEENT: Pupils Equal Neck: Supple Lungs: Clear to Auscultation Cardiovascular: Regular Rate (Female) Exam: Deferred Extremities: Normal Inspection - Patient Data Lab Results Last 24 hrs: Laboratory Results - last 24 hr 08/26/20 08/26/20 Range/Units 07:00 07:00 WBC 7.1 (3.0-10.3) x10-3/uL RBC 3.79 (3.60-5.20) x10(6)uL Hgb 11.5 (11.4-15.5) g/dL Hct 34.7 (34.2-48.2) % MCV 91.4 (76.7-100.5) fL MCH 30.3 (23.9-33.9) pg MCHC 33.1 (31.9-34.8) g/dL RDW 15.2 (12.3-16.5) % Plt Count 150 L (151-488) x10(3)uL MPV 8.7 (7.1-12.4) fL Neut % (Auto) 72.7 (30.8-76.2) % Lymph % (Auto) 15.3 L (18.4-52.1) % [place] % (Auto) 9.3 (4.4-15.7) % Eos % (Auto) 2.4 (0.6-8.1) % Baso % (Auto) 0.3 (0.2-1.5) % Neut # (Auto) 5.2 (1.5-6.3) x10-3/uL Lymph # (Auto) 1.1 (1.0-4.4) x10-3/uL [place] # (Auto) 0.7 (0.3-1.0) x10-3/uL Eos # (Auto) 0.2 (0.0-0.8) x10-3/uL Baso # (Auto) 0.0 (0.0-0.1) x10-3/uL Sodium 142 (135-145) mmol/L Potassium 3.4 L (3.5-5.3) mmol/L Chloride 107 (100-110) mmol/L Carbon Dioxide 25 (21-32) mmol/L BUN 17 D (7-18) mg/dL Creatinine 1.3 H (0.55-1.02) mg/dL Est Cr Clr Drug Dosing 32.85 mL/min Estimated GFR (MDRD) 40 L (>60) BUN/Creatinine Ratio 13.1 (9-20) Glucose 94 (80-116) mg/dL Calcium 8.2 L (8.6-10.2) mg/dL Result Diagrams: 08/26/20 07:00 08/26/20 07:00 Sepsis Event Note - Evaluation Sepsis Screening Result: No Definite Risk - Focused Exam Vital Signs: Vital Signs Temp Pulse Resp BP Pulse Ox 08/26/20 04:00 97.5 F 58 L 16 136/66 95 08/26/20 01:00 97 F 50 L 16 115/59 L 95 08/25/20 21:00 97.4 F 65 16 121/58 L 95 - Problem List & Annotations (1) Acute on chronic kidney failure SNOMED Code(s): 917761053 Code(s): N17.9 - ACUTE KIDNEY FAILURE, UNSPECIFIED; N18.9 - CHRONIC KIDNEY DISEASE, UNSPECIFIED Status: Acute Current Visit: Yes Qualifiers: Acute renal failure type: unspecified (2) HTN (hypertension) SNOMED Code(s): 35610616 Code(s): I10 - ESSENTIAL (PRIMARY) HYPERTENSION Status: Chronic Current Visit: Yes Qualifiers: Hypertension type: essential hypertension Qualified Code(s): I10 - Essential (primary) hypertension (3) Abdominal pain SNOMED Code(s): 04144291 Code(s): R10.9 - UNSPECIFIED ABDOMINAL PAIN Status: Acute Current Visit: Yes Qualifiers: Abdominal location: left lower quadrant Qualified Code(s): R10.32 - Left lower quadrant pain (4) Alzheimer's dementia SNOMED Code(s): 60831622 Code(s): G30.9 - ALZHEIMER'S DISEASE, UNSPECIFIED; F02.80 - DEMENTIA IN OTH DISEASES CLASSD ELSWHR W/O BEHAVRL DISTURB Status: Chronic Current Visit: Yes Qualifiers: Alzheimer's disease onset: late-onset Dementia behavioral disturbance: with behavioral disturbance Qualified Code(s): G30.1 - Alzheimer's disease with late onset; F02.81 - Dementia in other diseases classified elsewhere with behavioral disturbance (5) Hyperparathyroidism SNOMED Code(s): 16173804 Code(s): E21.3 - HYPERPARATHYROIDISM, UNSPECIFIED Status: Chronic Current Visit: No (6) Sacrum and coccyx fracture SNOMED Code(s): 11806626, 770595314 Code(s): S32.10XA - UNSP FRACTURE OF SACRUM, INIT ENCNTR FOR CLOSED FRACTURE; S32.2XXA - FRACTURE OF COCCYX, INITIAL ENCOUNTER FOR CLOSED FRACTURE Status: Acute Current Visit: Yes Qualifiers: Encounter type: initial encounter Fracture type: closed Qualified Code(s): S32.10XA - Unspecified fracture of sacrum, initial encounter for closed fracture; S32.2XXA - Fracture of coccyx, initial encounter for closed fracture - Problem List Review Problem List Initiated/Reviewed/Updated: Yes - My Orders Last 24 Hours: My Active Orders 08/25/20 09:07 OT Evaluation and Treatment [CONS] Routine PT Evaluation and Treatment [CONS] Routine 08/25/20 12:46 Communication Order [RC] 0900,16,00 08/26/20 08:58 traMADol [Ultram] 50 mg PO Q6H PRN 08/26/20 09:00 Memantine [Namenda] 10 mg PO BID Naproxen [Naprosyn] 500 mg PO Q12HR - Plan Plan:: Use Tramadol PRN. Start regular Naproxen. PT/OT
[2020-08-26] MEDS: Potassium Chloride 20 MEQ Tab.ER PO SCH ×2 (09:05→20:02)
[2020-08-26] MEDS: Sertraline 50 MG Tab PO SCH ×2 (09:05→20:01)
[2020-08-26] MEDS: QUEtiapine 25 MG Tab PO SCH (09:06)
[2020-08-26] MEDS: Memantine 10 MG Tab PO SCH ×2 (09:06→20:02)
[2020-08-26] MEDS: Pilocarpine 1% Ophth Soln 15 ML Bottle EYERT SCH ×2 (09:06→17:07)
[2020-08-26] MEDS: Naproxen 500 MG Tab PO SCH ×2 (09:26→20:02)
[2020-08-26] MEDS: RIVASTIGMINE 9.5 MG TOP SCH (13:12)
--- NOTE | 2020-08-26 17:33 | CT ---
CT HEAD WITHOUT CONTRAST 7381 INDICATION: Photophobia. Spiral 3.75 mm axial sections were obtained through the brain without contrast with axial, sagittal, and coronal reconstructions 08/26/2020 and compared with MRI dated 08/03/2015. Total exam DLP was 1270.76 mGy-cm. There is minimal calcification in the lay of the internal carotid arteries. Hard beam artifact from dentition is noted limiting visualization of the posterior fossa. There is prominence of the Sylvian fissure on the left suggesting atrophy focally in that area. The ventricles appear to be more prominent than on the previous study suggesting central atrophy additionally that is progressive. Decreased density is noted periventricular and is slightly more prominent than on the previous MRI and more prominent on the left than on the right suggesting a mild degree of microvascular disease. No shift of midline structures was identified. No focal areas of abnormal density were identified to suggest an acute thrombotic CVA. No bleeding site or hematoma was seen. Mastoid air cells and paranasal sinuses appear to be well aerated. The cranium appears to be intact. The orbits showed no gross abnormalities with evidence of previous surgery suggested. IMPRESSION: 1. No acute intracranial abnormality. 2. Mild microvascular disease with internal carotid artery calcifications. 3. Central and left temporal cortical atrophy. MTDD
[2020-08-26] MEDS: Enoxaparin 30 MG/0.3 ML Syringe SUBCUT SCH (20:02)
[2020-08-27] MEDS: Potassium Chloride 20 MEQ Tab.ER PO SCH ×2 (08:22→20:04)
[2020-08-27] MEDS: Pilocarpine 1% Ophth Soln 15 ML Bottle EYERT SCH ×2 (08:23→16:42)
[2020-08-27] MEDS: Naproxen 500 MG Tab PO SCH ×2 (08:23→20:05)
[2020-08-27] MEDS: Memantine 10 MG Tab PO SCH ×2 (08:23→20:05)
[2020-08-27] MEDS: QUEtiapine 25 MG Tab PO SCH (08:24)
[2020-08-27] MEDS: Sertraline 50 MG Tab PO SCH ×2 (08:24→20:05)
[2020-08-27] MEDS: RIVASTIGMINE 9.5 MG TOP SCH (08:25)
--- NOTE | 2020-08-27 10:07 | PCM.PN ---
- General Info Date of Service: 08/27/20 Subjective Update: Ms. Mercer was is doing much better today. She's had chronic photophobia, CT of the head done yesterday was negative. Functional Status: Reports: Pain Controlled, Tolerating Diet - Review of Systems Pulmonary: Reports: No Symptoms Cardiovascular: Reports: No Symptoms Gastrointestinal: Reports: No Symptoms - Patient Data Vitals - Most Recent: Last Vital Signs Temp 97.4 F 08/27/20 03:35 Pulse 59 L 08/27/20 03:35 Resp 18 08/27/20 03:35 BP 128/75 08/27/20 03:35 Pulse Ox 97 08/27/20 03:35 Weight - Most Recent: 64.098 kg I&O - Last 24 Hours: Intake & Output 08/26/20 08/27/20 08/27/20 22:59 06:59 14:59 Intake Total 50 Balance 50 Lab Results Last 24 Hours: Laboratory Results - last 24 hr 08/26/20 Range/Units 12:07 POC Glucose Cancelled Med Orders - Current: Current Medications Acetaminophen (Acetaminophen 325 Mg Tab) 650 mg PO Q4H PRN PRN Reason: Pain (Mild 1-3)/fever Last Admin: 08/26/20 08:02 Dose: 650 mg Documented by: Enoxaparin Sodium (Enoxaparin 30 Mg/0.3 Ml Syringe) 30 mg SUBCUT Q24H [facility] Last Admin: 08/26/20 20:02 Dose: 30 mg Documented by: Lovastatin (Lovastatin 40 Mg Tab) 40 mg PO BEDTIME [facility] Last Admin: 08/26/20 20:01 Dose: 40 mg Documented by: Memantine (Memantine 10 Mg Tab) 10 mg PO BID [facility] Last Admin: 08/27/20 08:23 Dose: 10 mg Documented by: Naproxen (Naproxen 500 Mg Tab) 500 mg PO Q12H [facility] Last Admin: 08/27/20 08:23 Dose: 500 mg Documented by: Rivastigmine [Exelon ] 9.5 Mg Patch *Ptom * 9.5 mg TOP DAILY [facility] Last Admin: 08/27/20 08:25 Dose: 9.5 mg Documented by: Ondansetron HCl (Ondansetron 4 Mg/2 Ml Sdv) 4 mg IV Q4H PRN PRN Reason: Nausea/Vomiting Pilocarpine HCl (Pilocarpine 1% Ophth Soln 15 Ml Bottle) 0 ml EYERT , [facility] Last Admin: 08/27/20 08:23 Dose: 1 drop Documented by: Potassium Chloride (Potassium Chloride 20 Meq Tab.Er) 20 meq PO BID [facility] Last Admin: 08/27/20 08:22 Dose: 20 meq Documented by: Quetiapine Fumarate (Quetiapine 25 Mg Tab) 25 mg PO DAILY [facility] Last Admin: 08/27/20 08:24 Dose: 25 mg Documented by: Quetiapine Fumarate (Quetiapine 50 Mg Tab) 50 mg PO DAILY@1999 [facility] Last Admin: 08/26/20 19:42 Dose: 50 mg Documented by: Senna/Docusate Sodium (Docusate Sodium/Sennosides 50-8.6 Mg Tab) 1 tab PO BID PRN PRN Reason: Constipation Sertraline HCl (Sertraline 50 Mg Tab) 50 mg PO BID [facility] Last Admin: 08/27/20 08:24 Dose: 50 mg Documented by: Tramadol HCl (Tramadol 50 Mg Tab) 50 mg PO Q6H PRN PRN Reason: Breakthrough Pain Last Admin: 08/26/20 11:13 Dose: 50 mg Documented by: Discontinued Medications Sodium Chloride (Normal Saline) 1,000 mls @ 999 mls/hr IV ASDIRECTED [facility] Last Admin: 08/24/20 18:25 Dose: 999 mls/hr Documented by: Sodium Chloride (Normal Saline) 1,000 mls @ 125 mls/hr IV ASDIRECTED [facility] Last Admin: 08/26/20 06:00 Dose: 125 mls/hr Documented by: Lorazepam (Lorazepam 2 Mg/Ml Sdv) 1 mg IVPUSH NOW STA Stop: 08/24/20 20:08 Last Admin: 08/24/20 20:25 Dose: 1 mg Documented by: Memantine (Memantine 10 Mg Tab) 20 mg PO BID@0900,1700 [facility] Last Admin: 08/25/20 08:25 Dose: 20 mg Documented by: Olanzapine (Olanzapine 10 Mg Vial) 5 mg IM NOW STA Stop: 08/24/20 20:09 Last Admin: 08/24/20 20:26 Dose: 5 mg Documented by: Quetiapine Fumarate (Quetiapine 25 Mg Tab) 50 mg PO NOW STA Stop: 08/24/20 20:02 Last Admin: 08/24/20 20:26 Dose: 50 mg Documented by: Quetiapine Fumarate (Quetiapine 50 Mg Tab) 50 mg PO BEDTIME [facility] Last Admin: 08/24/20 21:43 Dose: Not Given Documented by: Tramadol HCl (Tramadol 50 Mg Tab) 50 mg PO Q8H [facility] Last Admin: 08/26/20 05:59 Dose: 50 mg Documented by: - Exam General: Alert, Cooperative. No: Oriented HEENT: Pupils Equal Neck: Supple Lungs: Clear to Auscultation Cardiovascular: Regular Rate Skin: Warm Neurological: No New Focal Deficit Psy/Mental Status: Alert - Patient Data Lab Results Last 24 hrs: Laboratory Results - last 24 hr 08/26/20 Range/Units 12:07 POC Glucose Cancelled Result Diagrams: 08/26/20 07:00 08/26/20 07:00 Sepsis Event Note - Evaluation Sepsis Screening Result: No Definite Risk - Focused Exam Vital Signs: Vital Signs Temp Pulse Resp BP Pulse Ox 08/27/20 03:35 97.4 F 59 L 18 128/75 97 08/27/20 00:00 97.3 F 55 L 16 139/65 96 - Problem List & Annotations (1) Alzheimer's dementia SNOMED Code(s): 43732578 Code(s): G30.9 - ALZHEIMER'S DISEASE, UNSPECIFIED; F02.80 - DEMENTIA IN OTH DISEASES CLASSD ELSWHR W/O BEHAVRL DISTURB Status: Chronic Current Visit: Yes Qualifiers: Alzheimer's disease onset: late-onset Dementia behavioral disturbance: with behavioral disturbance Qualified Code(s): G30.1 - Alzheimer's disease with late onset; F02.81 - Dementia in other diseases classified elsewhere with behavioral disturbance (2) Acute on chronic kidney failure SNOMED Code(s): 284997187 Code(s): N17.9 - ACUTE KIDNEY FAILURE, UNSPECIFIED; N18.9 - CHRONIC KIDNEY DISEASE, UNSPECIFIED Status: Acute Current Visit: Yes Qualifiers: Acute renal failure type: unspecified (3) HTN (hypertension) SNOMED Code(s): 11068454 Code(s): I10 - ESSENTIAL (PRIMARY) HYPERTENSION Status: Chronic Current Visit: Yes Qualifiers: Hypertension type: essential hypertension Qualified Code(s): I10 - Essential (primary) hypertension (4) Abdominal pain SNOMED Code(s): 57054000 Code(s): R10.9 - UNSPECIFIED ABDOMINAL PAIN Status: Acute Current Visit: Yes Qualifiers: Abdominal location: left lower quadrant Qualified Code(s): R10.32 - Left lower quadrant pain (5) Hyperparathyroidism SNOMED Code(s): 84044658 Code(s): E21.3 - HYPERPARATHYROIDISM, UNSPECIFIED Status: Chronic Current Visit: No (6) Sacrum and coccyx fracture SNOMED Code(s): 79964807, 414322050 Code(s): S32.10XA - UNSP FRACTURE OF SACRUM, INIT ENCNTR FOR CLOSED FRACTURE; S32.2XXA - FRACTURE OF COCCYX, INITIAL ENCOUNTER FOR CLOSED FRACTURE Status: Acute Current Visit: Yes Qualifiers: Encounter type: initial encounter Fracture type: closed Qualified Code(s) : S32.10XA - Unspecified fracture of sacrum, initial encounter for closed fracture; S32.2XXA - Fracture of coccyx, initial encounter for closed fracture - Problem List Review Problem List Initiated/Reviewed/Updated: Yes - My Orders Last 24 Hours: My Active Orders 08/26/20 10:40 Convert IV to Saline Lock [OM.PC] Routine - Plan Plan:: Use Tramadol PRN. Continue scheduled regular Naproxen. PT/OT. DC to [facility] tomorrow
[2020-08-27] MEDS: Enoxaparin 30 MG/0.3 ML Syringe SUBCUT SCH (20:04)
[2020-08-28 08:00] VITALS: BP 147/81
[2020-08-28 08:03] VITALS: PULSE 141
[2020-08-28] MEDS: Potassium Chloride 20 MEQ Tab.ER PO SCH (08:10)
[2020-08-28] MEDS: Naproxen 500 MG Tab PO SCH (08:11)
[2020-08-28] MEDS: Memantine 10 MG Tab PO SCH (08:11)
[2020-08-28] MEDS: Pilocarpine 1% Ophth Soln 15 ML Bottle EYERT SCH (08:11)
[2020-08-28] MEDS: QUEtiapine 25 MG Tab PO SCH (08:13)
[2020-08-28] MEDS: Sertraline 50 MG Tab PO SCH (08:13)
[2020-08-28] MEDS: RIVASTIGMINE 9.5 MG TOP SCH (08:13)
[2020-08-28] MEDS ORDERED: Glycerin Adult 2 GM Supp RECTAL ONE (09:37)
--- NOTE | 2020-08-28 11:09 | PCM.DCSUM1 ---
Discharge Summary - Hospital Course HPI Initial Comments: Ms Mercer was brought in because of difficulty in ambulation, decreased oral intake and worsening confusion. She has a h/o Dementia and lives at the [facility] memory care unit for the last 1 year. Her symptoms got worse over the weekend, and was not able to get out of bed for 1-2 days. Also recently had a fall, unwitnessed and complained of mild back pain. However, X rays of the Pelvis, Lumbar spine done at the clinic were negative. She further has complained to the staff of non specific abdominal pain. Her past history also includes HTN and CKD. Seen at clinic initially and sent over the ER, had diarrhea stool at clinic and nurse noted hard stool in rectum, gave enema with minimal results. Diagnosis: Stroke: No - Discharge Data Discharge Date: 08/28/20 (Swing bed) Discharge Disposition: DC/Tfer W/I Hosp To [place] [id number] Condition: Fair - Referral to Home Health Primary Care Physician: Solo Gtz MD - Patient Summary/Data Consults: Consultations 08/25/20 09:07 OT Evaluation and Treatment [CONS] Routine Please Evaluate and Treat. OT Reason for Consult: ADL's This query below is only for informational purposes and is not editable. Admission Diagnosis/Problem: Metabolic encephalopathy PT Evaluation and Treatment [CONS] Routine Please Evaluate and Treat. PT Reason for Consult: Ambulation This query below is only for informational purposes and is not editable. Admission Diagnosis/Problem: Metabolic encephalopathy Hospital Course: She received IVF on admission, creatinine improved from 2.7, to 1.3. Her lasix was held during acute stay. Trazodone was also held as she was started on Tramadol for pain. She had CT abdomen/pelvis done in ER, found sacral fracture, had fallen 2 weeks ago, had negative x-ray done in clinic. Pain controlled with Tylenol, Naproxen and Tramadol. She has had 3 stools yesterday but small amounts, one was diarrhea. Will be moved to swing bed for continued rehab. - Patient Instructions Diet: Regular Diet as Tolerated Activity: As Tolerated Other/Special Instructions: Transfer to Swing bed - Discharge Plan *PRESCRIPTION DRUG MONITORING PROGRAM REVIEWED*: Not Applicable *COPY OF PRESCRIPTION DRUG MONITORING REPORT IN PATIENT LADAN: Not Applicable Home Medications: Home Meds Lovastatin 40 mg PO BEDTIME 11/04/14 [History] Pilocarpine [Pilocar 1% Ophth Soln] 1 drop EYERT BID 02/03/19 [History] Acetaminophen [Tylenol Arthritis] 650 mg PO BID PRN 02/24/19 [History] Aspirin [Halfprin] 81 mg PO DAILY 02/24/19 [History] Calcium Carbonate [Calcium] 500 mg PO DAILY 02/24/19 [History] Potassium Chloride [Klor-Con M20] 20 meq PO BID 02/24/19 [History] Sertraline HCl 50 mg PO BID 02/24/19 [History] amLODIPine Besylate [Amlodipine Besylate] 10 mg PO BEDTIME 02/24/19 [History] QUEtiapine [SEROquel] 25 mg PO DAILY 08/24/20 [History] Rivastigmine [Exelon] 9.5 mg .ROUTE DAILY 08/24/20 [History] Amoxicillin 500 mg PO ASDIRECTED 08/25/20 [History] Carboxymethylcellulose Sodium [Refresh Tears] 1 drop EYEBOTH QID 08/25/20 [History] Furosemide [Lasix] 20 mg PO Q48H 08/25/20 [History] Furosemide [Lasix] 40 mg PO Q48H 08/25/20 [History] Loperamide [Imodium AD] 2 mg PO BID PRN 08/25/20 [History] Memantine HCl [Namenda Xr] 28 mg PO DAILY 08/25/20 [History] allopurinoL [Zyloprim] 150 mg PO DAILY 08/25/20 [History] calcitrioL [Calcitriol] 0.25 mcg PO BEDTIME 08/25/20 [History] traZODone 75 mg PO BEDTIME 08/25/20 [History] valACYclovir HCl [Valacyclovir] 2,000 mg PO Q12H PRN 08/25/20 [History] Docusate Sodium/Sennosides [Senna Plus] 1 tab PO BID PRN tablet 08/28/20 [Rx] Naproxen [Naprosyn] 500 mg PO Q12H tablet 08/28/20 [Rx] QUEtiapine [SEROquel] 50 mg PO DAILY@1800 #0 08/28/20 [Rx] traMADol [Ultram] 50 mg PO Q6H PRN tablet 08/28/20 [Rx] Forms: ED Department Discharge Referrals: Solo Gtz MD [Primary Care Provider] - - Discharge Summary/Plan Comment DC Time >30 min.: No - General Info Date of Service: 08/28/20 Subjective Update: Denies any shortness of breath, chest pain, complains of legs hurting. Daughter stated she hadn't had bowel movement since the clinic where they had to do an enema for rectal stool ball, had minimal results with this. Nursing noted a diarrhea stool and some minimal formed stools yesterday. Had blister on buttocks from prolonged sitting on toilet at assisted living, improved per daughter and n ursing. - Patient Data Vitals - Most Recent: Last Vital Signs Temp 98.1 F 08/28/20 08:00 Pulse 141 H 08/28/20 08:00 Resp 18 08/28/20 08:00 BP 147/81 H 08/28/20 07:59 Pulse Ox 98 08/28/20 08:00 Weight - Most Recent: 141 lb 5 oz I&O - Last 24 hours: Intake & Output 08/27/20 08/28/20 08/28/20 22:59 06:59 14:59 Intake Total 200 Balance 200 Med Orders - Current: Current Medications Acetaminophen (Acetaminophen 325 Mg Tab) 650 mg PO Q4H PRN PRN Reason: Pain (Mild 1-3)/fever Last Admin: 08/26/20 08:02 Dose: 650 mg Documented by: Enoxaparin Sodium (Enoxaparin 30 Mg/0.3 Ml Syringe) 30 mg SUBCUT Q24H [facility] Last Admin: 08/27/20 20:04 Dose: 30 mg Documented by: Lovastatin (Lovastatin 40 Mg Tab) 40 mg PO BEDTIME [facility] Last Admin: 08/27/20 20:05 Dose: 40 mg Documented by: Memantine (Memantine 10 Mg Tab) 10 mg PO BID [facility] Last Admin: 08/28/20 08:11 Dose: 10 mg Documented by: Naproxen (Naproxen 500 Mg Tab) 500 mg PO Q12H [facility] Last Admin: 08/28/20 08:11 Dose: 500 mg Documented by: Rivastigmine [Exelon ] 9.5 Mg Patch *Ptom * 9.5 mg TOP DAILY [facility] Last Admin: 08/28/20 08:13 Dose: 9.5 mg Documented by: Ondansetron HCl (Ondansetron 4 Mg/2 Ml Sdv) 4 mg IV Q4H PRN PRN Reason: Nausea/Vomiting Pilocarpine HCl (Pilocarpine 1% Ophth Soln 15 Ml Bottle) 0 ml EYERT [facility] Last Admin: 08/28/20 08:11 Dose: 1 drop Documented by: Potassium Chloride (Potassium Chloride 20 Meq Tab.Er) 20 meq PO BID [facility] Last Admin: 08/28/20 08:10 Dose: 20 meq Documented by: Quetiapine Fumarate (Quetiapine 25 Mg Tab) 25 mg PO DAILY [facility] Last Admin: 08/28/20 08:13 Dose: 25 mg Documented by: Quetiapine Fumarate (Quetiapine 50 Mg Tab) 50 mg PO DAILY@1800 [facility] Last Admin: 08/27/20 18:02 Dose: 50 mg Documented by: Senna/Docusate Sodium (Docusate Sodium/Sennosides 50-8.6 Mg Tab) 1 tab PO BID PRN PRN Reason: Constipation Sertraline HCl (Sertraline 50 Mg Tab) 50 mg PO BID [facility] Last Admin: 08/28/20 08:13 Dose: 50 mg Documented by: Tramadol HCl (Tramadol 50 Mg Tab) 50 mg PO Q6H PRN PRN Reason: Breakthrough Pain Last Admin: 08/26/20 11:13 Dose: 50 mg Documented by: Discontinued Medications Glycerin (Glycerin Adult 2 Gm Supp) 1 supp RECTAL ONETIME ONE Stop: 08/28/20 09:38 Sodium Chloride (Normal Saline) 1,000 mls @ 999 mls/hr IV ASDIRECTED [facility] Last Admin: 08/24/20 18:25 Dose: 999 mls/hr Documented by: Sodium Chloride (Normal Saline) 1,000 mls @ 125 mls/hr IV ASDIRECTED [facility] Last Admin: 08/26/20 06:00 Dose: 125 mls/hr Documented by: Lorazepam (Lorazepam 2 Mg/Ml Sdv) 1 mg IVPUSH NOW STA Stop: 08/24/20 20:08 Last Admin: 08/24/20 20:25 Dose: 1 mg Documented by: Memantine (Memantine 10 Mg Tab) 20 mg PO BID@0900,1700 [facility] Last Admin: 08/25/20 08:25 Dose: 20 mg Documented by: Olanzapine (Olanzapine 10 Mg Vial) 5 mg IM NOW STA Stop: 08/24/20 20:09 Last Admin: 08/24/20 20:26 Dose: 5 mg Documented by: Quetiapine Fumarate (Quetiapine 25 Mg Tab) 50 mg PO NOW STA Stop: 08/24/20 20:02 Last Admin: 08/24/20 20:26 Dose: 50 mg Documented by: Quetiapine Fumarate (Quetiapine 50 Mg Tab) 50 mg PO BEDTIME [facility] Last Admin: 08/24/20 21:43 Dose: Not Given Documented by: Quetiapine Fumarate (Quetiapine 50 Mg Tab) 50 mg PO DAILY@1999 [facility] Last Admin: 08/26/20 19:42 Dose: 50 mg Documented by: Tramadol HCl (Tramadol 50 Mg Tab) 50 mg PO Q8H [facility] Last Admin: 08/26/20 05:59 Dose: 50 mg Documented by: - Exam General: Reports: Alert, Oriented (person, pleasantly confused.), Cooperative, No Acute Distress Lungs: Reports: Clear to Auscultation, Normal Respiratory Effort Cardiovascular: Reports: Regular Rate, Regular Rhythm GI/Abdominal Exam: Soft, Non-Tender, No Distention, Abnormal Bowel Sounds (hypoactive) (Female) Exam: Deferred Rectal (Female) Exam: Other (Erythema bilateral buttocks L>R improving, no ecchymosis to sacrum.) Extremities: No Pedal Edema Wound/Incisions: Reports: Erythema Improving
== END 2020-08-28 11:00 | disposition swing bed (61) | DRG 682 ==
LOC: FB.ED 16:08 → FB.MS 20:56
PROVIDERS: ADMIT Emergency Medicine; ATTEND Family Medicine
DX: N17.9 Acute kidney failure, unspecified (principal); G93.41 Metabolic encephalopathy; S32.10XA Unspecified fracture of sacrum, initial encounter for closed fracture; S32.2XXA Fracture of coccyx, initial encounter for closed fracture; F02.81 Dementia in other diseases classified elsewhere, unspecified severity, with behavioral disturbance; G30.1 Alzheimer's disease with late onset; G30.9 Alzheimer's disease, unspecified; R10.32 Left lower quadrant pain; E21.3 Hyperparathyroidism, unspecified; F02.80 Dementia in other diseases classified elsewhere, unspecified severity, without behavioral disturbance, psychotic disturbance, mood disturbance, and anxiety; H54.7 Unspecified visual loss; E78.00 Pure hypercholesterolemia, unspecified; K21.9 Gastro-esophageal reflux disease without esophagitis; I12.9 Hypertensive chronic kidney disease with stage 1 through stage 4 chronic kidney disease, or unspecified chronic kidney disease; Z20.822 Contact with and (suspected) exposure to COVID-19; N18.9 Chronic kidney disease, unspecified; E86.0 Dehydration; Z96.649 Presence of unspecified artificial hip joint; G89.29 Other chronic pain; Z85.828 Personal history of other malignant neoplasm of skin; M54.9 Dorsalgia, unspecified; W19.XXXA Unspecified fall, initial encounter; Z98.49 Cataract extraction status, unspecified eye; Z90.710 Acquired absence of both cervix and uterus; Z86.718 Personal history of other venous thrombosis and embolism; Z79.82 Long term (current) use of aspirin; Z79.899 Other long term (current) drug therapy
CPT/HCPCS: 36415; 71045; 80048; 81001; 82150; 83690; 85025; 99283; A9270; J2060; J3490; J7030; U0002; 70450; 74176; 97116-GP; 97161-GP; 97165-GO; 97530-GP; J1650

== ENCOUNTER 2020-08-28 10:22 | Inpatient (IN) | payer MEDICARE, BC ==
[2020-08-28] MEDS ORDERED: Acetaminophen 650 MG Tab.ER PO PRN (11:32)
--- NOTE | 2020-08-28 11:37 | PCM.HP.2 ---
H&P History of Present Illness - General Date of Service: 08/28/20 Admit Problem/Dx: Admission Diagnosis/Problem Admission Diagnosis/Problem Rehabilitation therapy - History of Present Illness Initial Comments - Free Text/Narative: ACUTE CARE HPI: Ms Mercer was brought in because of difficulty in ambulation, decreased oral intake and worsening confusion. She has a h/o Dementia and lives at the [facility] memory care unit for the last 1 year. Her symptoms got worse over the weekend, and was not able to get out of bed for 1-2 days. Also recently had a fall, unwitnessed and complained of mild back pain. However, X rays of the Pelvis, Lumbar spine done at the clinic were negative. She further has complained to the staff of non specific abdominal pain. Her past history also includes HTN and CKD. Seen at clinic initially and sent over the ER, had diarrhea stool at clinic and nurse noted hard stool in rectum, gave enema with minimal results. HOSPITAL COURSE: She received IVF on admission, creatinine improved from 2.7, to 1.3. Her lasix was held during acute stay. Trazodone was also held as she was started on Tramadol for pain. She had CT abdomen/pelvis done in ER, found sacral fracture, had fallen 2 weeks ago, had negative x-ray done in clinic. Pain controlled with Tylenol, Naproxen and Tramadol. She has had 3 stools yesterday but small amounts, one was diarrhea. Will be moved to swing bed for continued rehab. - Related Data Allergies/Adverse Reactions: Allergies Allergy/AdvReac Type Severity Reaction Status Date / Time No Known Allergies Allergy Verified 02/24/19 14:38 Home Medications: Home Meds Lovastatin 40 mg PO BEDTIME 11/04/14 [History] Pilocarpine [Pilocar 1% Ophth Soln] 1 drop EYERT BID 02/03/19 [History] Acetaminophen [Tylenol Arthritis] 650 mg PO BID PRN 02/24/19 [History] Aspirin [Halfprin] 81 mg PO DAILY 02/24/19 [History] Calcium Carbonate [Calcium] 500 mg PO DAILY 02/24/19 [History] Potassium Chloride [Klor-Con M20] 20 meq PO BID 02/24/19 [History] Sertraline HCl 50 mg PO BID 02/24/19 [History] amLODIPine Besylate [Amlodipine Besylate] 10 mg PO BEDTIME 02/24/19 [History] QUEtiapine [SEROquel] 25 mg PO DAILY 08/24/20 [History] Rivastigmine [Exelon] 9.5 mg .ROUTE DAILY 08/24/20 [History] Amoxicillin 500 mg PO ASDIRECTED 08/25/20 [History] Carboxymethylcellulose Sodium [Refresh Tears] 1 drop EYEBOTH QID 08/25/20 [History] Furosemide [Lasix] 20 mg PO Q48H 08/25/20 [History] Furosemide [Lasix] 40 mg PO Q48H 08/25/20 [History] Loperamide [Imodium AD] 2 mg PO BID PRN 08/25/20 [History] Memantine HCl [Namenda Xr] 28 mg PO DAILY 08/25/20 [History] allopurinoL [Zyloprim] 150 mg PO DAILY 08/25/20 [History] calcitrioL [Calcitriol] 0.25 mcg PO BEDTIME 08/25/20 [History] traZODone 75 mg PO BEDTIME 08/25/20 [History] valACYclovir HCl [Valacyclovir] 2,000 mg PO Q12H PRN 08/25/20 [History] Docusate Sodium/Sennosides [Senna Plus] 1 tab PO BID PRN tablet 08/28/20 [Rx] Naproxen [Naprosyn] 500 mg PO Q12H tablet 08/28/20 [Rx] QUEtiapine [SEROquel] 50 mg PO DAILY@1800 #0 08/28/20 [Rx] traMADol [Ultram] 50 mg PO Q6H PRN tablet 08/28/20 [Rx] Past Medical History HEENT History: Reports: Cataract, Glaucoma, Impaired Vision Cardiovascular History: Reports: Blood Clots/VTE/DVT, High Cholesterol, Hypertension, SOB on Exertion Gastrointestinal History: Reports: GERD Other Gastrointestinal History: heartburn with Genitourinary History: Reports: Chronic Renal Insuffiency, Renal Disease Other Genitourinary History: KIDNEY DYSFUNCTION D/T TOXIEMIA 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: Musculoskeletal History: Reports: Back Pain, Chronic Neurological History: Reports: Alzheimers Disease Oncologic (Cancer) History: Reports: Other (See Below) Other Oncologic History: skin cancer - Infectious Disease History Infectious Disease History: Reports: Mumps - Past Surgical History HEENT Surgical History: Reports: Cataract Surgery, Oral Surgery Cardiovascular Surgical History: Reports: None GI Surgical History: Reports: Appendectomy, Colonoscopy Female Surgical History: Reports: Hysterectomy Neurological Surgical History: Reports: Lumbar Spine Musculoskeletal Surgical History: Reports: Hip Replacement Other Musculoskeletal Surgeries/Procedures:: recent ankle fracture, wears walking boot Social & Family History - Family History Family Medical History: No Pertinent Family History - Caffeine Use Caffeine Use: Reports: None - Living Situation & Occupation Living situation: Reports: Occupation: Retired H&P Review of Systems - Review of Systems: Review Of Systems: See Below General: Reports: Weakness Pulmonary: Reports: No Symptoms Cardiovascular: Reports: No Symptoms Gastrointestinal: Reports: Constipation, Diarrhea Genitourinary: Reports: No Symptoms Musculoskeletal: Reports: Leg Pain Skin: Reports: Erythema Exam - Exam Exam: See Below - Vital Signs Weight: 141 lb - Exam General: Alert, Oriented (person, pleasantly confused), Cooperative. No: Mild Distress Lungs: Clear to Auscultation, Normal Respiratory Effort Cardiovascular: Regular Rate, Regular Rhythm GI/Abdominal Exam: Soft, Non-Tender, No Distention, Abnormal Bowel Sounds (hypoactive BS x 4) (Female) Exam: Deferred Rectal (Female) Exam: Other (erythema on bilateral buttock L>R, no sacral ecchymosis or ulcers.) Extremities: No Pedal Edema Sepsis Event Note - Evaluation Sepsis Screening Result: No Definite Risk *Q Meaningful Use (ADM) - VTE *Q VTE Mechanical Contraindications *Q: At Risk for Falls - VTE Risk Assess *Q Each Risk Factor Represents 1 Point: None Total Score 1 Point Risk Factors: 0 Each Risk Factor Represents 2 Points: None Total Score 2 Point Risk Factors: 0 Each Risk Factor Represents 3 Points: Age 75 Years or Greater Total Score 3 Point Risk Factors: 3 Each Risk Factor Represents 5 Points: Hip, Pelvis or Leg Fracture, Less than 1 month Total Score 5 Point Risk Factors: 5 Venous Thromboembolism Risk Factor Score *Q: 8 - Problem List (1) Weakness generalized SNOMED Code(s): 02549949 ICD Code: R53.1 - WEAKNESS Status: Acute Current Visit: Yes (2) Sacrum and coccyx fracture SNOMED Code(s): 84126683, 931690006 ICD Code: S32.10XA - UNSP FRACTURE OF SACRUM, INIT ENCNTR FOR CLOSED FRACTURE; S32.2XXA - FRACTURE OF COCCYX, INITIAL ENCOUNTER FOR CLOSED FRACTURE Status: Acute Current Visit: No Onset Date: ~08/2020 Qualifiers: Encounter type: initial encounter Fracture type: closed Qualified Code(s): S32.10XA - Unspecified fracture of sacrum, initial encounter for closed fracture; S32.2XXA - Fracture of coccyx, initial encounter for closed fracture (3) Alzheimer's dementia SNOMED Code(s): 15281555 ICD Code: G30.9 - ALZHEIMER'S DISEASE, UNSPECIFIED; F02.80 - DEMENTIA IN OTH DISEASES CLASSD ELSWHR W/O BEHAVRL DISTURB Status: Chronic Current Visit: No Qualifiers: Alzheimer's disease onset: late-onset Dementia behavioral disturbance: with behavioral disturbance Qualified Code(s): G30.1 - Alzheimer's disease with late onset; F02.81 - Dementia in other diseases classified elsewhere with behavioral disturbance (4) CKD (chronic kidney disease) SNOMED Code(s): 418419285 ICD Code: N18.9 - CHRONIC KIDNEY DISEASE, UNSPECIFIED Status: Chronic Current Visit: No (5) HTN (hypertension) SNOMED Code(s): 63605258 ICD Code: I10 - ESSENTIAL (PRIMARY) HYPERTENSION Status: Chronic Current Visit: No (6) Hiatal hernia SNOMED Code(s): 78772965 ICD Code: K44.9 - DIAPHRAGMATIC HERNIA WITHOUT OBSTRUCTION OR GANGRENE Status: Chronic Current Visit: No (7) Vitamin D deficiency SNOMED Code(s): 59315488 ICD Code: E55.9 - VITAMIN D DEFICIENCY, UNSPECIFIED Status: Chronic Current Visit: No Problem List Initiated/Reviewed/Updated: Yes Orders Last 24hrs: Active Orders 24 hr Category Date Time Status Patient Status [ADT] Routine ADT 08/28/20 11:29 Active Height and Weight [RC] WEEKLY Care 08/28/20 11:29 Active Oxygen Therapy [RC] PRN Care 08/28/20 11:29 Active Up With Assistance [RC] ASDIRECTED Care 08/28/20 11:29 Active Up to Chair [RC] ASDIRECTED Care 08/28/20 11:29 Active VTE/DVT Education [RC] Per Unit Routine Care 08/28/20 11:29 Active Vital Signs [RC] PER UNIT ROUTINE Care 08/28/20 11:29 Active OT Evaluation and Treatment [CONS] Routine Cons 08/28/20 11:29 Active PT Evaluation and Treatment [CONS] Routine Cons 08/28/20 11:29 Active Regular Diet [DIET] Diet 08/28/20 Lunch Active Acetaminophen [Tylenol Arthritis Pain] Med 08/28/20 11:32 Ordered 650 mg PO BID PRN Aspirin [Halfprin] Med 08/29/20 09:00 Ordered 81 mg PO DAILY Calcium Carbonate [Oyster Shell Calcium] Med 08/29/20 09:00 Ordered 500 mg PO DAILY Carboxymethylcellulose Sodium [Refresh Tears 0.5%] Med 08/28/20 13:00 Ordered DOSE ml EYEBOTH QID Docusate Sodium/Sennosides [Senna Plus] Med 08/28/20 11:32 Ordered 1 tab PO BID PRN Loperamide [Imodium AD] Med 08/28/20 11:32 Ordered 2 mg PO BID PRN Lovastatin [Mevacor] Med 08/28/20 21:00 Ordered 40 mg PO BEDTIME Memantine HCl [Namenda Xr] Med 08/29/20 09:00 Ordered 28 mg PO DAILY Naproxen [Naprosyn] Med 08/28/20 11:45 Ordered 500 mg PO Q12H Pilocarpine [Pilocar 1% Ophth Soln] Med 08/28/20 21:00 Ordered DOSE ml EYERT BID QUEtiapine [SEROqueL] Med 08/29/20 09:00 Ordered 25 mg PO DAILY QUEtiapine [SEROquel] Med 08/28/20 18:00 Ordered 50 mg PO DAILY@1800 Rivastigmine [Exelon] Med 08/29/20 09:00 Ordered 9.5 mg TRDERM DAILY Sertraline [Zoloft] Med 08/28/20 21:00 Ordered 50 mg PO BID allopurinoL [Zyloprim] Med 08/29/20 09:00 Ordered 150 mg PO DAILY amLODIPine [Norvasc] Med 08/28/20 21:00 Ordered 10 mg PO BEDTIME calcitrioL [Rocaltrol] Med 08/28/20 21:00 Ordered 0.25 mcg PO BEDTIME traMADol [Ultram] Med 08/28/20 11:32 Ordered 50 mg PO Q6H PRN Antiembolic Hose [OM.PC] Per Unit Routine Oth 08/28/20 11:31 Ordered Resuscitation Status Routine Resus Stat 08/28/20 11:29 Ordered Medication Orders Acetaminophen (Acetaminophen 650 Mg Tab.Er) 650 mg PO BID PRN PRN Reason: Pain Allopurinol (Allopurinol 100 Mg Tab) 150 mg PO DAILY [facility] Amlodipine Besylate (Amlodipine 10 Mg Tab) 10 mg PO BEDTIME [facility] Artificial Tears (Carboxymethylcellulose Sodium 0.5% Ophth Soln 15 Ml Bottle) ml EYEBOTH QID [facility] Aspirin (Aspirin 81 Mg Tab.Ec) 81 mg PO DAILY [facility] Calcitriol (Calcitriol 0.25 Mcg Cap) 0.25 mcg PO BEDTIME [facility] Calcium Carbonate/Glycine (Calcium Carbonate 500 Mg Tablet) 500 mg PO DAILY [facility] Lovastatin (Lovastatin 40 Mg Tab) 40 mg PO BEDTIME [facility] Naproxen (Naproxen 500 Mg Tab) 500 mg PO Q12H [facility] Non-Formulary Medication (Loperamide [Imodium Ad]) 2 mg PO BID PRN PRN Reason: Diarrhea Non-Formulary Medication (Memantine Hcl [Namenda Xr]) 28 mg PO DAILY [facility] Pilocarpine HCl (Pilocarpine 1% Ophth Soln 15 Ml Bottle) ml EYERT BID [facility] Quetiapine Fumarate (Quetiapine 25 Mg Tab) 25 mg PO DAILY [facility] Quetiapine Fumarate (Quetiapine 50 Mg Tab) 50 mg PO DAILY@1800 [facility] Rivastigmine (Rivastigmine 9.5 Mg/24 Hr Transdermal Patch) 9.5 mg TRDERM DAILY [facility] Senna/Docusate Sodium (Docusate Sodium/Sennosides 50-8.6 Mg Tab) 1 tab PO BID PRN PRN Reason: Constipation Sertraline HCl (Sertraline 25 Mg Tab) 50 mg PO BID [facility] Tramadol HCl (Tramadol 50 Mg Tab) 50 mg PO Q6H PRN PRN Reason: Breakthrough Pain Assessment/Plan Comment:: 1. Admit to swing bed for further rehab for sacral fracture. Acute kidney injury resolved, dehydration resolved. 2. PT/OT evaluated & treat for ambulation & ADLs. 3. Dementia: continue her Seroquel, will hold Trazodone to avoid serotonin syndrome. She was started on Tramadol as needed for pain, and will continue Sertraline. Once she is no longer requiring Tramadol then will resume Trazodone. 4. CKD/HTN: continue to monitor her blood pressures and peripheral edema, if needed will restart her Lasix and Potassium. 5. Activity: up with assistance and up to chair for meals. 6. Diet: Regular. 7. DVT prophylaxis: TEDs BLE. 8. CODE STATUS: DNR/DNI. 9. Discharge plan: Plan is to discharge to [facility] next week. - Mortality Measure Prognosis:: Poor
[2020-08-28] MEDS ORDERED: Loperamide 2 MG Cap PO PRN (12:02)
[2020-08-28] MEDS: Carboxymethylcellulose Sodium 0.5% Ophth Soln 15 ML Bottle EYEBOTH SCH ×3 (13:41→20:03)
[2020-08-28] MEDS: traMADol 50 MG Tab PO PRN (18:10)
[2020-08-28] MEDS: Pilocarpine 1% Ophth Soln 15 ML Bottle EYERT SCH (20:00)
[2020-08-28] MEDS: Memantine 10 MG Tab PO SCH (20:02)
[2020-08-28] MEDS: Sertraline 50 MG Tab PO SCH (20:03)
[2020-08-28] MEDS: Calcitriol 0.25 MCG Cap PO SCH (20:03)
[2020-08-28] MEDS: amLODIPine 10 MG Tab PO SCH (20:04)
[2020-08-28] MEDS: Naproxen 500 MG Tab PO SCH (20:06)
[2020-08-29] MEDS: Rivastigmine 9.5 MG/24 HR Transdermal Patch TRDERM SCH (08:49)
[2020-08-29] MEDS: Allopurinol 300 MG Tab PO SCH (08:52)
[2020-08-29] MEDS: Carboxymethylcellulose Sodium 0.5% Ophth Soln 15 ML Bottle EYEBOTH SCH ×4 (08:53→20:14)
[2020-08-29] MEDS: Pilocarpine 1% Ophth Soln 15 ML Bottle EYERT SCH ×2 (08:54→20:13)
[2020-08-29] MEDS: Aspirin 81 MG Tab.EC PO SCH (08:54)
[2020-08-29] MEDS: Memantine 10 MG Tab PO SCH ×2 (08:55→20:08)
[2020-08-29] MEDS: Naproxen 500 MG Tab PO SCH ×2 (08:56→20:08)
[2020-08-29] MEDS: Sertraline 50 MG Tab PO SCH ×2 (08:56→20:08)
[2020-08-29] MEDS: Calcium Carbonate 500 MG Tablet PO SCH (08:58)
[2020-08-29] MEDS: QUEtiapine 25 MG Tab PO SCH (08:58)
[2020-08-29] MEDS: amLODIPine 10 MG Tab PO SCH (20:08)
[2020-08-29] MEDS: Calcitriol 0.25 MCG Cap PO SCH (20:08)
[2020-08-30] MEDS: Naproxen 500 MG Tab PO SCH ×2 (08:00→21:39)
[2020-08-30] MEDS: Aspirin 81 MG Tab.EC PO SCH (08:00)
[2020-08-30] MEDS: Calcium Carbonate 500 MG Tablet PO SCH (08:00)
[2020-08-30] MEDS: Memantine 10 MG Tab PO SCH ×2 (08:00→21:40)
[2020-08-30] MEDS: Carboxymethylcellulose Sodium 0.5% Ophth Soln 15 ML Bottle EYEBOTH SCH ×4 (08:03→21:41)
[2020-08-30] MEDS: Pilocarpine 1% Ophth Soln 15 ML Bottle EYERT SCH ×2 (08:03→21:39)
[2020-08-30] MEDS: Sertraline 50 MG Tab PO SCH ×2 (08:04→21:39)
[2020-08-30] MEDS: QUEtiapine 25 MG Tab PO SCH (08:05)
[2020-08-30] MEDS: Allopurinol 300 MG Tab PO SCH (08:06)
[2020-08-30] MEDS: Rivastigmine 9.5 MG/24 HR Transdermal Patch TRDERM SCH (08:07)
[2020-08-30] MEDS: traMADol 50 MG Tab PO PRN (18:03)
[2020-08-30] MEDS: Calcitriol 0.25 MCG Cap PO SCH (21:39)
[2020-08-30] MEDS: amLODIPine 10 MG Tab PO SCH (21:40)
[2020-08-31] MEDS: Allopurinol 300 MG Tab PO SCH (08:32)
[2020-08-31] MEDS: Aspirin 81 MG Tab.EC PO SCH (08:32)
[2020-08-31] MEDS: Naproxen 500 MG Tab PO SCH ×2 (08:33→21:08)
[2020-08-31] MEDS: Sertraline 50 MG Tab PO SCH ×2 (08:33→21:08)
[2020-08-31] MEDS: Calcium Carbonate 500 MG Tablet PO SCH (08:33)
[2020-08-31] MEDS: Memantine 10 MG Tab PO SCH ×2 (08:34→21:07)
[2020-08-31] MEDS: Rivastigmine 9.5 MG/24 HR Transdermal Patch TRDERM SCH (08:34)
[2020-08-31] MEDS: QUEtiapine 25 MG Tab PO SCH (08:34)
[2020-08-31] MEDS: Carboxymethylcellulose Sodium 0.5% Ophth Soln 15 ML Bottle EYEBOTH SCH ×4 (08:37→21:08)
[2020-08-31] MEDS: Pilocarpine 1% Ophth Soln 15 ML Bottle EYERT SCH ×2 (08:37→21:08)
[2020-08-31] MEDS: amLODIPine 10 MG Tab PO SCH (21:07)
[2020-08-31] MEDS: Calcitriol 0.25 MCG Cap PO SCH (21:08)
[2020-09-01] MEDS ORDERED: Bisacodyl 10 MG Supp RECTAL PRN (04:30)
[2020-09-01] MEDS: Rivastigmine 9.5 MG/24 HR Transdermal Patch TRDERM SCH (08:05)
[2020-09-01] MEDS: Aspirin 81 MG Tab.EC PO SCH (08:06)
[2020-09-01] MEDS: Memantine 10 MG Tab PO SCH ×2 (08:06→20:33)
[2020-09-01] MEDS: Naproxen 500 MG Tab PO SCH ×2 (08:07→20:33)
[2020-09-01] MEDS: Calcium Carbonate 500 MG Tablet PO SCH (08:07)
[2020-09-01] MEDS: QUEtiapine 25 MG Tab PO SCH (08:07)
[2020-09-01] MEDS: Carboxymethylcellulose Sodium 0.5% Ophth Soln 15 ML Bottle EYEBOTH SCH ×4 (08:07→20:35)
[2020-09-01] MEDS: Pilocarpine 1% Ophth Soln 15 ML Bottle EYERT SCH ×2 (08:07→20:33)
[2020-09-01] MEDS: Allopurinol 300 MG Tab PO SCH (08:08)
[2020-09-01] MEDS: Sertraline 50 MG Tab PO SCH ×2 (08:08→20:34)
[2020-09-01] MEDS: Calcitriol 0.25 MCG Cap PO SCH (20:33)
[2020-09-01] MEDS: amLODIPine 10 MG Tab PO SCH (20:34)
[2020-09-01] MEDS: Acetaminophen 650 MG Tab.ER PO SCH (20:35)
[2020-09-02] MEDS: Rivastigmine 9.5 MG/24 HR Transdermal Patch TRDERM SCH (08:13)
[2020-09-02] MEDS: Aspirin 81 MG Tab.EC PO SCH (08:14)
[2020-09-02] MEDS: Memantine 10 MG Tab PO SCH (08:14)
[2020-09-02] MEDS: Naproxen 500 MG Tab PO SCH (08:15)
[2020-09-02] MEDS: Pilocarpine 1% Ophth Soln 15 ML Bottle EYERT SCH (08:15)
[2020-09-02] MEDS: Calcium Carbonate 500 MG Tablet PO SCH (08:15)
[2020-09-02] MEDS: Carboxymethylcellulose Sodium 0.5% Ophth Soln 15 ML Bottle EYEBOTH SCH ×2 (08:16→12:31)
[2020-09-02] MEDS: QUEtiapine 25 MG Tab PO SCH (08:16)
[2020-09-02] MEDS: Sertraline 50 MG Tab PO SCH (08:17)
[2020-09-02] MEDS: Allopurinol 300 MG Tab PO SCH (08:17)
[2020-09-02] MEDS: Acetaminophen 650 MG Tab.ER PO SCH (08:17)
--- NOTE | 2020-09-02 10:23 | PCM.DCSUM1 ---
Discharge Summary - Hospital Course HPI Initial Comments: ACUTE CARE HPI: Ms Mercer was brought in because of difficulty in ambulation, decreased oral intake and worsening confusion. She has a h/o Dementia and lives at the [facility] memory care unit for the last 1 year. Her symptoms got worse over the weekend, and was not able to get out of bed for 1-2 days. Also recently had a fall, unwitnessed and complained of mild back pain. However, X rays of the Pelvis, Lumbar spine done at the clinic were negative. She further has complained to the staff of non specific abdominal pain. Her past history also includes HTN and CKD. Seen at clinic initially and sent over the ER, had diarrhea stool at clinic and nurse noted hard stool in rectum, gave enema with minimal results. ACUTE CARE HOSPITAL COURSE: She received IVF on admission, creatinine improved from 2.7, to 1.3. Her lasix was held during acute stay. Trazodone was also held as she was started on Tramadol for pain. She had CT abdomen/pelvis done in ER, found sacral fracture, had fallen 2 weeks ago, had negative x-ray done in clinic. Pain controlled with Tylenol, Naproxen and Tramadol. She has had 3 stools yesterday but small amounts, one was diarrhea. Will be moved to swing bed for continued rehab. Diagnosis: Stroke: No - Discharge Data Discharge Date: 09/02/20 Discharge Disposition: Home, W Home Health Agency 06 Condition: Good - Referral to Home Health Date of Face to Face Encounter: 09/02/20 Reason for Homebound Status: [facility] care Primary Care Physician: Solo Gtz MD Skilled Need: SN, PT, OT - Discharge Diagnosis/Problem(s) (1) Weakness generalized SNOMED Code(s): 97664682 ICD Code: R53.1 - WEAKNESS Status: Resolved Current Visit: Yes (2) Sacrum and coccyx fracture SNOMED Code(s): 57438436, 226157630 ICD Code: S32.10XA - UNSP FRACTURE OF SACRUM, INIT ENCNTR FOR CLOSED FRACTURE; S32.2XXA - FRACTURE OF COCCYX, INITIAL ENCOUNTER FOR CLOSED FRACTURE Status: Acute Current Visit: No Onset Date: ~08/2020 Qualifiers: Encounter type: initial encounter Fracture type: closed Qualified Code(s): S32.10XA - Unspecified fracture of sacrum, initial encounter for closed fracture; S32.2XXA - Fracture of coccyx, initial encounter for closed fracture (3) Alzheimer's dementia SNOMED Code(s): 20150777 ICD Code: G30.9 - ALZHEIMER'S DISEASE, UNSPECIFIED; F02.80 - DEMENTIA IN OTH DISEASES CLASSD ELSWHR W/O BEHAVRL DISTURB Status: Chronic Current Visit: No Qualifiers: Alzheimer's disease onset: late-onset Dementia behavioral disturbance: with behavioral disturbance Qualified Code(s): G30.1 - Alzheimer's disease with late onset; F02.81 - Dementia in other diseases classified elsewhere with behavioral disturbance (4) CKD (chronic kidney disease) SNOMED Code(s): 165794785 ICD Code: N18.9 - CHRONIC KIDNEY DISEASE, UNSPECIFIED Status: Chronic Current Visit: No (5) HTN (hypertension) SNOMED Code(s): 93765545 ICD Code: I10 - ESSENTIAL (PRIMARY) HYPERTENSION Status: Chronic Current Visit: No (6) Hiatal hernia SNOMED Code(s): 36721356 ICD Code: K44.9 - DIAPHRAGMATIC HERNIA WITHOUT OBSTRUCTION OR GANGRENE Status: Chronic Current Visit: No (7) Vitamin D deficiency SNOMED Code(s): 11935957 ICD Code: E55.9 - VITAMIN D DEFICIENCY, UNSPECIFIED Status: Chronic Current Visit: No - Patient Summary/Data Consults: Consultations 08/28/20 11:29 OT Evaluation and Treatment [CONS] Routine Please Evaluate and Treat. OT Reason for Consult: ADL's This query below is only for informational purposes and is not editable. PT Evaluation and Treatment [CONS] Routine Please Evaluate and Treat. PT Reason for Consult: Ambulation This query below is only for informational purposes and is not editable. Hospital Course: iJa has progressed well with therapy, ambulating in the halls with stand by assist. [facility] Bob came for care conference yesterday and felt she was back to point that they could take her back to memory care, wanted to take her today, 09/02. Her blood pressures have been well controlled with amlodipine. Lasix had been held on acute care stay, has not required it so discontinued Lasix and Potassium. She has only used 2 doses of Tramadol, last dose was Wednesday 08/30. Scheduled Naproxen was started in acute care, family and [facility] staff requested making her Tylenol scheduled so this was done yesterday. Toenails were trimmed yesterday, [facility] were asked by family yesterday to have this done on monthly basis and they plan on setting this up. PT recommended Home Health PT/OT for continued strengthening/ADLs. - Patient Instructions Diet: Usual Diet as Tolerated Activity: As Tolerated Showering/Bathing: May Shower Notify Provider of: Fever, Increased Pain, Nausea and/or Vomiting Other/Special Instructions: Follow up with Dr Gtz in 1 week. - Discharge Plan *PRESCRIPTION DRUG MONITORING PROGRAM REVIEWED*: Not Applicable *COPY OF PRESCRIPTION DRUG MONITORING REPORT IN PATIENT LADAN: Not Applicable Prescriptions/Med Rec: Naproxen [Naprosyn] 500 mg PO Q12H 30 Days #60 tablet Docusate Sodium/Sennosides [Senna Plus] 1 tab PO BID PRN 30 Days #30 tablet PRN Reason: Constipation Acetaminophen [Tylenol Arthritis] 650 mg PO BID 30 Days #60 tab Home Medications: Home Meds Lovastatin 40 mg PO BEDTIME 11/04/14 [History] Pilocarpine [Pilocar 1% Ophth Soln] 1 drop EYERT BID 02/03/19 [History] Aspirin [Halfprin] 81 mg PO DAILY 02/24/19 [History] Calcium Carbonate [Calcium] 500 mg PO DAILY 02/24/19 [History] Sertraline HCl 50 mg PO BID 02/24/19 [History] amLODIPine Besylate [Amlodipine Besylate] 10 mg PO BEDTIME 02/24/19 [History] QUEtiapine [SEROquel] 25 mg PO DAILY 08/24/20 [History] Rivastigmine [Exelon] 9.5 mg .ROUTE DAILY 08/24/20 [History] Amoxicillin 500 mg PO ASDIRECTED 08/25/20 [History] Carboxymethylcellulose Sodium [Refresh Tears] 1 drop EYEBOTH QID 08/25/20 [History] Loperamide [Imodium AD] 2 mg PO BID PRN 08/25/20 [History] Memantine HCl [Namenda Xr] 28 mg PO DAILY 08/25/20 [History] allopurinoL [Zyloprim] 150 mg PO DAILY 08/25/20 [History] calcitrioL [Calcitriol] 0.25 mcg PO BEDTIME 08/25/20 [History] traZODone 75 mg PO BEDTIME 08/25/20 [History] valACYclovir HCl [Valacyclovir] 2,000 mg PO Q12H PRN 08/25/20 [History] QUEtiapine [SEROquel] 50 mg PO DAILY@1800 #0 08/28/20 [Rx] Acetaminophen [Tylenol Arthritis] 650 mg PO BID 30 Days #60 tab 09/01/20 [Rx] Docusate Sodium/Sennosides [Senna Plus] 1 tab PO BID PRN 30 Days #30 tablet 09/01/20 [Rx] Naproxen [Naprosyn] 500 mg PO Q12H 30 Days #60 tablet 09/01/20 [Rx] Oxygen Therapy Mode: Room Air Patient Handouts: Docusate Sodium; Senna tablets or capsules, Acetaminophen biphasic or extended-release tablets, Naproxen delayed-release tablets Referrals: Solo Gtz MD [Primary Care Provider] - - Discharge Summary/Plan Comment DC Time >30 min.: No - General Info Date of Service: 09/02/20 Subjective Update: feeling good this morning. Denies any shortness of breath, chest or abdominal pain. Denied any pain with walking this morning. Nurses did find her trying to disimpact herself had small stool. Clipped her toenails yesterday. - Patient Data Vitals - Most Recent: Last Vital Signs Temp 98.1 F 09/01/20 20:00 Pulse 62 09/01/20 20:00 Resp 18 09/01/20 20:00 BP 119/61 09/01/20 20:34 Pulse Ox 97 09/01/20 20:00 Weight - Most Recent: 141 lb I&O - Last 24 hours: Intake & Output 09/01/20 09/02/20 09/02/20 22:59 06:59 14:59 Intake Total 200 Balance 200 Med Orders - Current: Current Medications Acetaminophen (Acetaminophen 650 Mg Tab.Er) 650 mg PO BID [facility] Last Admin: 09/02/20 08:17 Dose: 650 mg Documented by: Allopurinol (Allopurinol 300 Mg Tab) 150 mg PO DAILY [facility] Last Admin: 09/02/20 08:17 Dose: 150 mg Documented by: Amlodipine Besylate (Amlodipine 10 Mg Tab) 10 mg PO BEDTIME [facility] Last Admin: 09/01/20 20:34 Dose: 10 mg Documented by: Artificial Tears (Carboxymethylcellulose Sodium 0.5% Ophth Soln 15 Ml Bottle) 0 ml EYEBOTH QID [facility] Last Admin: 09/02/20 08:16 Dose: 1 drop Documented by: Aspirin (Aspirin 81 Mg Tab.Ec) 81 mg PO DAILY [facility] Last Admin: 09/02/20 08:14 Dose: 81 mg Documented by: Bisacodyl (Bisacodyl 10 Mg Supp) 10 mg RECTAL DAILY PRN PRN Reason: Constipation Last Admin: 09/01/20 04:57 Dose: 10 mg Documented by: Calcitriol (Calcitriol 0.25 Mcg Cap) 0.25 mcg PO BEDTIME [facility] Last Admin: 09/01/20 20:33 Dose: 0.25 mcg Documented by: Calcium Carbonate/Glycine (Calcium Carbonate 500 Mg Tablet) 500 mg PO DAILY [facility] Last Admin: 09/02/20 08:15 Dose: 500 mg Documented by: Loperamide HCl (Loperamide 2 Mg Cap) 2 mg PO BID PRN PRN Reason: Diarrhea Lovastatin (Lovastatin 40 Mg Tab) 40 mg PO BEDTIME [facility] Last Admin: 09/01/20 20:32 Dose: 40 mg Documented by: Memantine (Memantine 10 Mg Tab) 10 mg PO BID [facility] Last Admin: 09/02/20 08:14 Dose: 10 mg Documented by: Naproxen (Naproxen 500 Mg Tab) 500 mg PO Q12H [facility] Last Admin: 09/02/20 08:15 Dose: 500 mg Documented by: Pilocarpine HCl (Pilocarpine 1% Ophth Soln 15 Ml Bottle) 0 ml EYERT BID [facility] Last Admin: 09/02/20 08:15 Dose: 1 drop Documented by: Quetiapine Fumarate (Quetiapine 25 Mg Tab) 25 mg PO DAILY [facility] Last Admin: 09/02/20 08:16 Dose: 25 mg Documented by: Quetiapine Fumarate (Quetiapine 50 Mg Tab) 50 mg PO DAILY@1800 [facility] Last Admin: 09/01/20 17:05 Dose: 50 mg Documented by: Rivastigmine (Rivastigmine 9.5 Mg/24 Hr Transdermal Patch) 9.5 mg TRDERM DAILY [facility] Last Admin: 09/02/20 08:13 Dose: 9.5 mg Documented by: Senna/Docusate Sodium (Docusate Sodium/Sennosides 50-8.6 Mg Tab) 1 tab PO BID PRN PRN Reason: Constipation Last Admin: 08/31/20 21:13 Dose: 1 tab Documented by: Sertraline HCl (Sertraline 50 Mg Tab) 50 mg PO BID [facility] Last Admin: 09/02/20 08:17 Dose: 50 mg Documented by: Discontinued Medications Acetaminophen (Acetaminophen 650 Mg Tab.Er) 650 mg PO BID PRN PRN Reason: Pain Tramadol HCl (Tramadol 50 Mg Tab) 50 mg PO Q6H PRN PRN Reason: Breakthrough Pain Last Admin: 08/30/20 18:03 Dose: 50 mg Documented by: - Exam General: Reports: Alert, Oriented (person), Cooperative, No Acute Distress Lungs: Reports: Clear to Auscultation, Normal Respiratory Effort Cardiovascular: Reports: Regular Rate, Regular Rhythm GI/Abdominal Exam: Normal Bowel Sounds, Soft, Non-Tender, No Distention *Q Meaningful Use (DIS) - VTE *Q VTE Mechanical Contraindications *Q: At Risk for Falls
[2020-09-02 11:07] VITALS: BP 143/66; PULSE 60
== END 2020-09-02 13:21 | disposition home health service (06) | DRG 560 ==
LOC: FB.MS 11:00
PROVIDERS: ADMIT Family Medicine; ATTEND Family Medicine
DX: S32.2XXD Fracture of coccyx, subsequent encounter for fracture with routine healing (principal); F02.81 Dementia in other diseases classified elsewhere, unspecified severity, with behavioral disturbance; N17.9 Acute kidney failure, unspecified; R53.1 Weakness; G30.1 Alzheimer's disease with late onset; N18.9 Chronic kidney disease, unspecified; K44.9 Diaphragmatic hernia without obstruction or gangrene; E55.9 Vitamin D deficiency, unspecified; I12.9 Hypertensive chronic kidney disease with stage 1 through stage 4 chronic kidney disease, or unspecified chronic kidney disease; H54.7 Unspecified visual loss; H40.9 Unspecified glaucoma; K21.9 Gastro-esophageal reflux disease without esophagitis; M54.9 Dorsalgia, unspecified; G89.29 Other chronic pain; E86.0 Dehydration; Z66 Do not resuscitate; E21.3 Hyperparathyroidism, unspecified; Z79.82 Long term (current) use of aspirin; Z79.899 Other long term (current) drug therapy; Z85.828 Personal history of other malignant neoplasm of skin; Z86.718 Personal history of other venous thrombosis and embolism; Z90.49 Acquired absence of other specified parts of digestive tract; Z90.710 Acquired absence of both cervix and uterus
CPT/HCPCS: 97112-GP; 97116-GP; 97530-GO; 97530-GP; 97535-GO; A9270-GY

== ENCOUNTER 2020-10-21 15:48 | Emergency (ER) | payer MEDICARE, BC ==
[2020-10-21] MEDS ORDERED: Lidocaine 2% Jelly 30 ML Tube TOP ONE (16:00)
[2020-10-21] MEDS ORDERED: Lidocaine 2% HCl 6 ML JEL.PF.APP ONE (16:15)
--- NOTE | 2020-10-21 17:15 | EDM.PDOC ---
ED HPI GENERAL MEDICAL PROBLEM - General Chief Complaint: Head Injury Stated Complaint: FALL/HIT HEAD Time Seen by Provider: 10/21/20 16:20 Source of Information: Reports: EMS, Family History Limitations: Reports: No Limitations - History of Present Illness INITIAL COMMENTS - FREE TEXT/NARRATIVE: Patient came from [facility] because she tripped and fell. She sustained an abrasion and goos egg bump hematoma over the left frontal area. there was no LOC after the fall. - Related Data Allergies Allergy/AdvReac Type Severity Reaction Status Date / Time No Known Allergies Allergy Verified 02/24/19 14:38 Home Meds: Home Meds Lovastatin 40 mg PO BEDTIME 11/04/14 [History] Pilocarpine [Pilocar 1% Ophth Soln] 1 drop EYERT BID 02/03/19 [History] Aspirin [Halfprin] 81 mg PO DAILY 02/24/19 [History] Calcium Carbonate [Calcium] 500 mg PO DAILY 02/24/19 [History] Sertraline HCl 50 mg PO BID 02/24/19 [History] amLODIPine Besylate [Amlodipine Besylate] 10 mg PO BEDTIME 02/24/19 [History] QUEtiapine [SEROquel] 25 mg PO DAILY 08/24/20 [History] Rivastigmine [Exelon] 9.5 mg .ROUTE DAILY 08/24/20 [History] Amoxicillin 500 mg PO ASDIRECTED 08/25/20 [History] Carboxymethylcellulose Sodium [Refresh Tears] 1 drop EYEBOTH QID 08/25/20 [History] Loperamide [Imodium AD] 2 mg PO BID PRN 08/25/20 [History] Memantine HCl [Namenda Xr] 28 mg PO DAILY 08/25/20 [History] allopurinoL [Zyloprim] 150 mg PO DAILY 08/25/20 [History] calcitrioL [Calcitriol] 0.25 mcg PO BEDTIME 08/25/20 [History] traZODone 75 mg PO BEDTIME 08/25/20 [History] valACYclovir HCl [Valacyclovir] 2,000 mg PO Q12H PRN 08/25/20 [History] QUEtiapine [SEROquel] 50 mg PO DAILY@1800 #0 08/28/20 [Rx] Acetaminophen [Tylenol Arthritis] 650 mg PO BID 30 Days #60 tab 09/01/20 [Rx] Docusate Sodium/Sennosides [Senna Plus] 1 tab PO BID PRN 30 Days #30 tablet 09/01/20 [Rx] Naproxen [Naprosyn] 500 mg PO Q12H 30 Days #60 tablet 09/01/20 [Rx] Past Medical History HEENT History: Reports: Cataract, Glaucoma, Impaired Vision Cardiovascular History: Reports: Blood Clots/VTE/DVT, High Cholesterol, Hypertension, SOB on Exertion Gastrointestinal History: Reports: GERD Other Gastrointestinal History: heartburn with Genitourinary History: Reports: Chronic Renal Insuffiency, Renal Disease Other Genitourinary History: KIDNEY DYSFUNCTION D/T TOXIEMIA 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: Musculoskeletal History: Reports: Back Pain, Chronic Neurological History: Reports: Alzheimers Disease Oncologic (Cancer) History: Reports: Other (See Below) Other Oncologic History: skin cancer - Infectious Disease History Infectious Disease History: Reports: Mumps - Past Surgical History HEENT Surgical History: Reports: Cataract Surgery, Oral Surgery Cardiovascular Surgical History: Reports: None GI Surgical History: Reports: Appendectomy, Colonoscopy Female Surgical History: Reports: Hysterectomy Neurological Surgical History: Reports: Lumbar Spine Musculoskeletal Surgical History: Reports: Hip Replacement Other Musculoskeletal Surgeries/Procedures:: recent ankle fracture, wears walking boot Social & Family History - Family History Family Medical History: No Pertinent Family History - Caffeine Use Caffeine Use: Reports: None - Living Situation & Occupation Living situation: Reports: Occupation: Retired ED ROS GENERAL - Review of Systems Review Of Systems: See Below Constitutional: Reports: No Symptoms HEENT: Reports: No Symptoms Respiratory: Reports: No Symptoms Cardiovascular: Reports: No Symptoms Endocrine: Reports: No Symptoms GI/Abdominal: Reports: No Symptoms : Reports: No Symptoms Musculoskeletal: Reports: No Symptoms Skin: Reports: No Symptoms Neurological: Reports: No Symptoms Psychiatric: Reports: No Symptoms Hematologic/Lymphatic: Reports: No Symptoms ED EXAM, HEAD INJURY - Physical Exam Exam: See Below Exam Limited By: No Limitations General Appearance: Alert Head: Normocephalic, Other (abarsion and hematoma left frontal area) Nexus Criteria: Posterior, Midline Cervical Tenderness Ears: Normal External Exam, Normal Canal Nose: Normal Inspection, Normal Mucousa Throat/Mouth: Normal Inspection Neck: Non-Tender, Full Range of Motion, Normal Alignment Respiratory: No Respiratory Distress, Lungs Clear, Normal Breath Sounds Cardiovascular: Normal Peripheral Pulses, Regular Rate, Rhythm, No Edema GI/Abdominal Exam: Normal Bowel Sounds, Soft, Non-Tender Back Exam: Normal Inspection, Full Range of Motion Extremities: Normal Inspection, Normal Range of Motion, Non-Tender 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, No Motor/Sensory Deficits, Alert Skin: Normal Color, Warm/Dry Course - Vital Signs Text/Narrative:: Head CT - Orders/Labs/Meds Orders: Active Orders 24 hr Category Date Time Status Head wo Cont [CT] Stat Exams 10/21/20 16:00 Ordered Acetaminophen [Tylenol Extra Strength] Med 10/21/20 17:17 Stat 1,000 mg PO NOW STA Meds: Medications Discontinued Medications Generic Name Dose Route Start Last Admin Trade Name Raysa PRN Reason Stop Dose Admin Lidocaine HCl 1 ml 10/21/20 16:00 10/21/20 17:17 Lidocaine 2% Jelly 30 Ml Tube TOP 10/21/20 16:01 Not Given ONETIME ONE Lidocaine HCl 6 ml 10/21/20 16:15 10/21/20 16:13 Lidocaine 2% Hcl 6 Ml Jel.Pf.Rena .XX 10/21/20 16:16 6 ml ONETIME ONE Administration Departure - Departure Time of Disposition: 17:30 Disposition: DC[facility] Condition: Good Clinical Impression: Head injury, Fall - Discharge Information Instructions: Head Injury, Adult, [id number], Hematoma, [id number] Forms: ED Department Discharge Additional Instructions: Please read discharge instructions on head injury Take tylenol 1000 mg every 8 hours as needed for pain Follow up as needed - My Orders Last 24 Hours: My Active Orders 10/21/20 16:00 Head wo Cont [CT] Stat 10/21/20 17:17 Acetaminophen [Tylenol Extra Strength] 1,000 mg PO NOW STA - Assessment/Plan Last 24 Hours: My Active Orders 10/21/20 16:00 Head wo Cont [CT] Stat 10/21/20 17:17 Acetaminophen [Tylenol Extra Strength] 1,000 mg PO NOW STA
[2020-10-21] MEDS ORDERED: Acetaminophen 500 MG Tab PO STA (17:17)
--- NOTE | 2020-10-21 17:25 | CT ---
INDICATION: Fall, left frontal hematoma. CT HEAD WITHOUT CONTRAST: Spiral 3.75 mm axial sections were obtained through the brain without contrast with axial, sagittal and coronal reconstructions 10/21/20 and compared with 08/26/20. Total exam DLP was 1219.22 milligray/cm. The paranasal sinuses and mastoid air cells appear to be well aerated. No cranial fracture site was identified. The orbits appear to be intact. There is a large left frontal scalp hematoma with no underlying fracture site in the cranium. Calcifications are noted in the internal carotid arteries. There is again noted central and left temporal atrophy with a mild degree of cortical atrophy in general. No definite shift of midline structures was seen. The lateral ventricles are slightly prominent compatible with the atrophy mentioned above. Periventricular white matter changes are minimal and compatible with a mild degree of microvascular disease, although other cause of leukoencephalopathy cannot be excluded. No evidence of hemorrhage or hematoma was identified - no acute intracranial abnormality was suggested. IMPRESSION: 1. No acute intracranial abnormality. 2. Central and cortical atrophy especially left temporal cortical atrophy. 3. Mild degree of white matter changes compatible with microvascular disease with internal carotid artery calcifications again noted. 4. Large left frontal scalp hematoma with no underlying cranial fracture site. Report was called to Dr. Marte at 1653 hours 10/21/20. [facility]
[2020-10-21 21:51] VITALS: BP 160/76; PULSE 62
== END 2020-10-21 18:00 ==
LOC: FB.ED 15:48
DX: S00.03XA Contusion of scalp, initial encounter (principal); E78.00 Pure hypercholesterolemia, unspecified; I10 Essential (primary) hypertension; I12.9 Hypertensive chronic kidney disease with stage 1 through stage 4 chronic kidney disease, or unspecified chronic kidney disease; N18.9 Chronic kidney disease, unspecified; G30.9 Alzheimer's disease, unspecified; F02.80 Dementia in other diseases classified elsewhere, unspecified severity, without behavioral disturbance, psychotic disturbance, mood disturbance, and anxiety; Z79.82 Long term (current) use of aspirin; W01.0XXA Fall on same level from slipping, tripping and stumbling without subsequent striking against object, initial encounter
CPT/HCPCS: 70450; 99282; 99284-25; A9270-GY

== ENCOUNTER 2020-11-07 09:25 | Emergency (ER) | payer MEDICARE, BC ==
[2020-11-07] MEDS ORDERED: Sodium Chloride 0.9% 10 ML Syringe FLUSH PRN (09:54)
[2020-11-07] MEDS ORDERED: Sodium Chloride 0.9% 500 ML IV ONE (09:55)
[2020-11-07 10:06] VITALS: BP 97/47; PULSE 76
--- NOTE | 2020-11-07 10:11 | EDM.PDOC ---
ED HPI GENERAL MEDICAL PROBLEM - General Chief Complaint: Gastrointestinal Problem Stated Complaint: CONSTIPATED Time Seen by Provider: 11/07/20 10:06 Source of Information: Reports: Family, [facility] Records History Limitations: Reports: Other (Dementia) - History of Present Illness INITIAL COMMENTS - FREE TEXT/NARRATIVE: Patient is unable to give a complete history due to dementia. Per [facility] staff, patient was sent to the ED for constipation so that she could be given an enema. She had a small hard BM yesterday, but no BM prior to that for 1 week. Patient complains of back pain, but no abdominal pain. There has been no vomiting. She had similar symptoms August 2020 due to fecal impaction. - Related Data Allergies Allergy/AdvReac Type Severity Reaction Status Date / Time No Known Allergies Allergy Verified 11/07/20 09:29 Home Meds: Home Meds Lovastatin 40 mg PO BEDTIME 11/04/14 [History] Pilocarpine [Pilocar 1% Ophth Soln] 1 drop EYERT BID 02/03/19 [History] Aspirin [Halfprin] 81 mg PO DAILY 02/24/19 [History] Calcium Carbonate [Calcium] 500 mg PO DAILY 02/24/19 [History] Sertraline HCl 50 mg PO BID 02/24/19 [History] amLODIPine Besylate [Amlodipine Besylate] 10 mg PO BEDTIME 02/24/19 [History] QUEtiapine [SEROquel] 25 mg PO DAILY 08/24/20 [History] Rivastigmine [Exelon] 9.5 mg .ROUTE DAILY 08/24/20 [History] Amoxicillin 500 mg PO ASDIRECTED 08/25/20 [History] Carboxymethylcellulose Sodium [Refresh Tears] 1 drop EYEBOTH QID 08/25/20 [History] Loperamide [Imodium AD] 2 mg PO BID PRN 08/25/20 [History] Memantine HCl [Namenda Xr] 28 mg PO DAILY 08/25/20 [History] allopurinoL [Zyloprim] 150 mg PO DAILY 08/25/20 [History] calcitrioL [Calcitriol] 0.25 mcg PO BEDTIME 08/25/20 [History] traZODone 75 mg PO BEDTIME 08/25/20 [History] valACYclovir HCl [Valacyclovir] 2,000 mg PO Q12H PRN 08/25/20 [History] QUEtiapine [SEROquel] 50 mg PO DAILY@1800 #0 08/28/20 [Rx] Acetaminophen [Tylenol Arthritis] 650 mg PO BID 30 Days #60 tab 09/01/20 [Rx] Docusate Sodium/Sennosides [Senna Plus] 1 tab PO BID PRN 30 Days #30 tablet 09/01/20 [Rx] Naproxen [Naprosyn] 500 mg PO Q12H 30 Days #60 tablet 09/01/20 [Rx] Cefuroxime [Ceftin] 250 mg PO BID #20 tablet 11/07/20 [Rx] bisacodyL [Dulcolax] 10 mg RC DAILY PRN #10 supp 11/07/20 [Rx] polyethylene glycoL 3350 [MiraLAX] 17 gm PO DAILY 11/07/20 [History] Past Medical History HEENT History: Reports: Cataract, Glaucoma, Impaired Vision Cardiovascular History: Reports: Blood Clots/VTE/DVT, High Cholesterol, Hypertension, SOB on Exertion Gastrointestinal History: Reports: GERD Other Gastrointestinal History: heartburn with Genitourinary History: Reports: Chronic Renal Insuffiency, Renal Disease Other Genitourinary History: KIDNEY DYSFUNCTION D/T TOXIEMIA 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: Musculoskeletal History: Reports: Back Pain, Chronic Neurological History: Reports: Alzheimers Disease Psychiatric History: Reports: Dementia Oncologic (Cancer) History: Reports: Other (See Below) Other Oncologic History: skin cancer - Infectious Disease History Infectious Disease History: Reports: Mumps - Past Surgical History HEENT Surgical History: Reports: Cataract Surgery, Oral Surgery Cardiovascular Surgical History: Reports: None GI Surgical History: Reports: Appendectomy, Colonoscopy Female Surgical History: Reports: Hysterectomy Neurological Surgical History: Reports: Lumbar Spine Musculoskeletal Surgical History: Reports: Hip Replacement Other Musculoskeletal Surgeries/Procedures:: recent ankle fracture, wears walking boot Social & Family History - Family History Family Medical History: No Pertinent Family History - Tobacco Use Tobacco Use Status *Q: Never Tobacco User Second Hand Smoke Exposure: No - Caffeine Use Caffeine Use: Reports: None - Recreational Drug Use Recreational Drug Use: No - Living Situation & Occupation Living situation: Reports: Occupation: Retired ED ROS GENERAL - Review of Systems Review Of Systems: Unable To Obtain Reason Not Obtained: Dementia ED EXAM, GI/ABD - Physical Exam Exam: See Below Exam Limited By: No Limitations General Appearance: Alert, WD/WN, No Apparent Distress Throat/Mouth: No Airway Compromise Head: Atraumatic, Normocephalic Respiratory/Chest: No Respiratory Distress, Lungs Clear Cardiovascular: Regular Rate, Rhythm, No Murmur GI/Abdominal Exam: Normal Bowel Sounds, Soft, Non-Tender, No Distention Back Exam: Full Range of Motion Extremities: Normal Range of Motion Neurological: Alert Skin Exam: Warm, Dry Course - Vital Signs Last Recorded V/S: Last Vital Signs Temp 36.9 C 11/07/20 09:40 Pulse 76 11/07/20 09:40 Resp 18 11/07/20 09:40 BP 97/47 L 11/07/20 09:40 Pulse Ox 97 11/07/20 09:40 - Orders/Labs/Meds Orders: Active Orders 24 hr Category Date Time Status Abdomen Pelvis wo Cont [CT] Stat Exams 11/07/20 09:54 Taken CULTURE URINE [RM] Stat Lab 11/07/20 11:01 Ordered Sodium Chloride 0.9% [Saline Flush] Med 11/07/20 09:54 Active 10 ml FLUSH ASDIRECTED PRN Saline Lock Insert [OM.PC] Routine Oth 11/07/20 09:54 Ordered Medication Orders Sodium Chloride (Sodium Chloride 0.9% 10 Ml Syringe) 10 ml FLUSH ASDIRECTED PRN PRN Reason: Keep Vein Open Last Admin: 11/07/20 10:15 Dose: 10 ml Documented by: Labs: Laboratory Tests 11/07/20 11/07/20 11/07/20 Range/Units 10:10 10:10 10:45 WBC 9.6 (3.0-10.3) x10-3/uL RBC 3.87 (3.60-5.20) x10(6)uL Hgb 11.9 (11.4-15.5) g/dL Hct 36.2 (34.2-48.2) % MCV 93.6 (76.7-100.5) fL MCH 30.8 (23.9-33.9) pg MCHC 32.9 (31.9-34.8) g/dL RDW 15.2 (12.3-16.5) % Plt Count 212 (151-488) x10(3)uL MPV 8.2 (7.1-12.4) fL Neut % (Auto) 79.0 H (30.8-76.2) % Lymph % (Auto) 9.9 L (18.4-52.1) % [place] % (Auto) 7.5 (4.4-15.7) % Eos % (Auto) 3.1 (0.6-8.1) % Baso % (Auto) 0.5 (0.2-1.5) % Neut # (Auto) 7.6 H (1.5-6.3) x10-3/uL Lymph # (Auto) 0.9 L (1.0-4.4) x10-3/uL [place] # (Auto) 0.7 (0.3-1.0) x10-3/uL Eos # (Auto) 0.3 (0.0-0.8) x10-3/uL Baso # (Auto) 0.1 (0.0-0.1) x10-3/uL Sodium 143 (135-145) mmol/L Potassium 3.6 (3.5-5.3) mmol/L Chloride 105 (100-110) mmol/L Carbon Dioxide 26 (21-32) mmol/L BUN 18 (7-18) mg/dL Creatinine 1.6 H (0.55-1.02) mg/dL Est Cr Clr Drug Dosing TNP Estimated GFR (MDRD) 31 L (>60) BUN/Creatinine Ratio 11.3 (9-20) Glucose 127 H (80-116) mg/dL Calcium 9.4 (8.6-10.2) mg/dL Total Bilirubin 0.8 (0.1-1.3) mg/dL AST 18 D (5-25) IU/L ALT 21 D (12-36) U/L Alkaline Phosphatase 94 (56-112) IU/L Total Protein 7.1 (6.0-8.0) g/dL Albumin 3.4 (3.2-4.6) g/dL Globulin 3.7 g/dL Albumin/Globulin Ratio 0.9 Urine Color Yellow (YELLOW) Urine Appearance Slightly cloudy (CLEAR) Urine pH 6.0 (5.0-6.5) Ur Specific [place] 1.015 (1.010-1.025) Urine Protein Negative (NEGATIVE) mg/dL Urine Glucose (UA) Normal (NORMAL) mg/dL Urine Ketones Negative (NEGATIVE) mg/dL Urine Occult Blood Negative (NEGATIVE) Urine Nitrite Positive H (NEGATIVE) Urine Bilirubin Negative (NEGATIVE) Urine Urobilinogen Normal (NEGATIVE) mg/dL Ur Leukocyte Esterase Small H (NEGATIVE) Urine WBC 20-30 H (0-5) Ur Squamous Epith Cells Few H (NS,R,O) Urine Bacteria Many H (NS) Meds: Medications Generic Name Dose Route Start Last Admin Trade Name Freq PRN Reason Stop Dose Admin Sodium Chloride 10 ml 11/07/20 09:54 11/07/20 10:15 Sodium Chloride 0.9% 10 Ml Syringe FLUSH 10 ml ASDIRECTED PRN Administration Keep Vein Open Discontinued Medications Generic Name Dose Route Start Last Admin Trade Name Freq PRN Reason Stop Dose Admin Bisacodyl 10 mg 11/07/20 11:09 11/07/20 11:16 Bisacodyl 10 Mg Supp RECTAL 11/07/20 11:10 10 mg ONETIME ONE Administration Sodium Chloride 500 mls @ 500 mls/hr 11/07/20 09:55 11/07/20 10:25 Normal Saline IV 11/07/20 10:54 500 mls/hr .BOLUS ONE Administration Sodium Biphosphate/Sodium Phosphate 133 ml 11/07/20 10:15 11/07/20 10:45 Sodium Phosphate,Monobasic/Sodium Phosphate,Dibasic Enema 133 Ml Bottle RECTAL 11/07/20 10:16 133 ml ONETIME ONE Administration - Radiology Interpretation Free Text/Narrative:: CT Abd/Pelvis s/ contrast: IMPRESSION: 1. No acute abnormality in the abdomen or pelvis. Small amount of stool in the colon. 2. Colonic diverticulosis. 3. Trace right pleural effusion. Bibasilar atelectasis. 4. Unchanged gallbladder wall calcification. Dictated by Martin Jamison MD @ 11/07/2020 10:29:52 AM (Electronic Signature) - Re-Assessments/Exams Free Text/Narrative Re-Assessment/Exam: 11/07/20 11:13 Patient was given a Fleet's enema but she was unable to hold most of the liquid in. There was no resultant BM. A Dulcolax 10mg suppository was inserted. 11/07/20 11:39 No spontaneous BM. Patient was manually disimpacted. Departure - Departure Time of Disposition: 11:14 Disposition: Home, Self-Care 01 Condition: Good Clinical Impression: Impacted stool in rectum UTI (urinary tract infection) Qualifiers: Urinary tract infection type: acute cystitis Hematuria presence: without hematuria Qualified Code(s): N30.00 - Acute cystitis without hematuria - Discharge Information *PRESCRIPTION DRUG MONITORING PROGRAM REVIEWED*: No *COPY OF PRESCRIPTION DRUG MONITORING REPORT IN PATIENT LADAN: Not Applicable Prescriptions: Cefuroxime [Ceftin] 250 mg PO BID #20 tablet bisacodyL [Dulcolax] 10 mg RC DAILY PRN #10 supp PRN Reason: Constipation Instructions: Urinary Tract Infection, Adult, [id number], Constipation, Adult Referrals: Solo Gtz MD [Primary Care Provider] - Forms: ED Department Discharge Additional Instructions: Fill the prescriptions for Ceftin and Dulcolax suppositories at [facility] and take as directed. Drink plenty of fluids. Increase fiber intake. Follow up as needed. Sepsis Event Note (ED) - Evaluation Sepsis Screening Result: No Definite Risk - Focused Exam Vital Signs: Vital Signs Temp Pulse Resp BP Pulse Ox 11/07/20 09:40 36.9 C 76 18 97/47 L 97 - My Orders Last 24 Hours: My Active Orders 11/07/20 09:54 Abdomen Pelvis wo Cont [CT] Stat Sodium Chloride 0.9% [Saline Flush] 10 ml FLUSH ASDIRECTED PRN Saline Lock Insert [OM.PC] Routine 11/07/20 11:01 CULTURE URINE [RM] Stat - Assessment/Plan Last 24 Hours: My Active Orders 11/07/20 09:54 Abdomen Pelvis wo Cont [CT] Stat Sodium Chloride 0.9% [Saline Flush] 10 ml FLUSH ASDIRECTED PRN Saline Lock Insert [OM.PC] Routine 11/07/20 11:01 CULTURE URINE [RM] Stat
[2020-11-07] MEDS ORDERED: Sodium Phosphate,Monobasic/Sodium Phosphate,Dibasic Enema 133 ML Bottle RECTAL ONE (10:15)
[2020-11-07] MEDS ORDERED: Bisacodyl 10 MG Supp RECTAL ONE (11:09)
== END 2020-11-07 12:15 | disposition home or self-care (01) ==
LOC: FB.ED 09:25
DX: K59.00 Constipation, unspecified (principal); N30.00 Acute cystitis without hematuria; I12.9 Hypertensive chronic kidney disease with stage 1 through stage 4 chronic kidney disease, or unspecified chronic kidney disease; N18.9 Chronic kidney disease, unspecified; G30.9 Alzheimer's disease, unspecified; F02.80 Dementia in other diseases classified elsewhere, unspecified severity, without behavioral disturbance, psychotic disturbance, mood disturbance, and anxiety; E78.00 Pure hypercholesterolemia, unspecified; Z79.82 Long term (current) use of aspirin; Z79.899 Other long term (current) drug therapy
CPT/HCPCS: 36415; 74176; 80053; 81001; 85025; 87086; 87088; 87186; 99283; 99284-25; A9270-GY; J7040